=== PATIENT | female | born 1960 | race African-American/Black ===

== ENCOUNTER 2018-04-22 11:13 | Inpatient (IN) | payer OTHER ==
[~2018-04-22] VITALS: Ht 157.5 cm; Wt 104.8 kg
[2018-04-22] VITALS (7 sets, daily range): BP systolic 127–154; BP diastolic 68–87
[~2018-04-22 11:13] MED LIST: ACYCLOVIR800 MG ORAL; AVELIDE PERCUT; BENADRYL25 MG ORAL; CEPHALEXIN500 MG ORAL; GABAPENTIN300 MG ORAL; LEVOTHYROXINE25 MCG ORAL; PREDNISONE20 MG ORAL; RANITIDINE HCL150 MG ORAL; STELARA45 MG/0.1 SQ; TRUVADA 200 MG1 EAC1 ORAL; VIGAMOX1 DROP LEFT EYE
--- NOTE | 2018-04-22 11:35 | NUR ---
ED Nurse Note: Pt walked into ED c/o dizziness for couple of days. Pt reports she went to doctors office because she had blood in urine but it went away, doctor rec to follow up with urologist. denies taking any medication. PT AA&Ox4, gcs=15, skin warm and dry, resp even and unlabored, -n/v/d, ambulates w/ weak gait, pt placed on cardiac tech, KRISTOPHER DOMINGUEZ MD at the bedside, will continue to monitor.
[2018-04-22] MEDS ORDERED: Isovue-300 100ml vial INJ PRN (11:45)
[2018-04-22 12:10] LABS: HEMATOCRIT 27.1 % (37.0-47.0); HEMOGLOBIN 8.9 G/DL (12.0-16.0); MEAN CORPUSCULAR VOLUME 82 FL (80-99); PLATELET COUNT 11 K/UL (150-450); RED BLOOD COUNT 3.32 M/UL (4.20-5.40); RED CELL DISTRIBUTION WIDTH 21.1 % (11.6-14.8); WHITE BLOOD COUNT 7.8 K/UL (4.8-10.8)
[2018-04-22 12:14] LABS: APPEARANCE,URINE CLOUDY; BILIRUBIN, URINE 3+ (NEGATIVE); GLUCOSE, URINE (UA) NEGATIVE (NEGATIVE); KETONES,URINE NEGATIVE (NEGATIVE); LEUKOCYTE ESTERASE ,URINE 2+ (NEGATIVE); PH,URINE 7 (4.5-8.0); PROTEIN,URINE 3+ (NEGATIVE); UROBILINOGEN,URINE 12 MG/DL (0.0-1.0)
[2018-04-22 12:17] LABS: COLOR,URINE AMBER; NITRITE,URINE NEGATIVE (NEGATIVE)
--- NOTE | 2018-04-22 12:40 | Diagnostic Imaging Report ---
EXAM: CT Head Without Intravenous Contrast CLINICAL HISTORY: PAIN TECHNIQUE: Axial computed tomography images of the head/brain without intravenous contrast. CTDI is 70.38 mGy and DLP is 1358 mGy-cm. One or more of the following dose reduction techniques were used: automated exposure control, adjustment of the mA and/or kV according to patient size, use of iterative reconstruction technique. COMPARISON: No relevant prior studies available. FINDINGS: Brain: No hemorrhage. No edema. Ventricles: No ventriculomegaly. Bones/joints: No acute fracture. Soft tissues: Unremarkable. Sinuses: No acute sinusitis. Mastoid air cells: No mastoid effusion. IMPRESSION: No acute intracranial process.
[2018-04-22 12:48] LABS: ANION GAP 6 mmol/L (5-15); BLOOD UREA NITROGEN 17 mg/dL (7-18); CALCIUM 8.8 MG/DL (8.5-10.1); CARBON DIOXIDE 27 MMOL/L (21-32); CHLORIDE 103 MMOL/L (98-107); CREATININE 0.9 MG/DL (0.55-1.30); POTASSIUM 3.3 MMOL/L (3.5-5.1); SODIUM 136 MMOL/L (136-145)
[2018-04-22 12:56] LABS: ALANINE AMINOTRANSFERASE 56 U/L (12-78); ALBUMIN 3.5 G/DL (3.4-5.0); ALBUMIN/GLOBULIN RATIO 0.7 (1.0-2.7); ALKALINE PHOSPHATASE 84 U/L (46-116); ASPARTATE AMINO TRANSFERASE 68 U/L (15-37); BILIRUBIN,TOTAL 1.7 MG/DL (0.2-1.0)
[2018-04-22 13:03] LABS: BILIRUBIN,DIRECT 0.3 MG/DL (0.0-0.3)
--- NOTE | 2018-04-22 13:31 | Diagnostic Imaging Report ---
EXAM: CT Abdomen and Pelvis With Intravenous Contrast CLINICAL HISTORY: ABD PAIN TECHNIQUE: Axial computed tomography images of the abdomen and pelvis with intravenous contrast. CTDI is 19.28 mGy and DLP is 1045 mGy-cm. One or more of the following dose reduction techniques were used: automated exposure control, adjustment of the mA and/or kV according to patient size, use of iterative reconstruction technique. COMPARISON: No relevant prior studies available. FINDINGS: Lung bases: Unremarkable. Heart: Cardiomegaly. ABDOMEN: Liver: Unremarkable. Gallbladder and bile ducts: No calcified stones. No ductal dilation. Pancreas: Unremarkable. Spleen: Unremarkable. Adrenals: Unremarkable. Kidneys and ureters: Bilateral nephrolithiasis. Stomach and bowel: No alis mural thickening. Nonobstructive bowel gas pattern. PELVIS: Appendix: Distended appendix measuring about 1 cm. No surrounding inflammatory changes. Bladder: Unremarkable. Reproductive: Hysterectomy. ABDOMEN and PELVIS: Intraperitoneal space: Unremarkable. Bones/joints: Avascular necrosis of the hips. Soft tissues: Unremarkable. Vasculature: Unremarkable. No abdominal aortic aneurysm. Lymph nodes: Mesenteric nodes. IMPRESSION: 1. Distended appendix measuring about 1 cm. No surrounding inflammatory changes. 2. Bilateral nephrolithiasis. 3. Avascular necrosis of the hips.
[2018-04-22] MEDS ORDERED: AVAPRO75 MG ORAL (13:56)
[2018-04-22] MEDS ORDERED: LEVOTHYROXINE125 MCG ORAL (13:56)
[2018-04-22] MEDS ORDERED: Solu-MEDROL 125mg Inj IVP ONE (14:15)
--- NOTE | 2018-04-22 14:41 | Emergency Room Report ---
History of Present Illness General Chief Complaint: Dizziness Source: Patient Present Illness HPI Patient is a 57-year-old female presented after increased the hematuria and dizziness. She reports having some headache. She reports having the prior diagnosis of HIV. She states that she had a previously been noted to have a high viral load. The patient reports some near-syncope as well as increased dizziness with head movements. She denies any fever. She had reports having some had generalized abdominal pain. She denies any focal pain Allergies: Coded Allergies: No Known Allergies (Unverified , 04/18/13) Patient History Past Medical History: see triage record Now: No Reviewed Nursing Documentation: PMH: Agreed; PSxH: Agreed Nursing Documentation-PMH Past Medical History: No History, Except For Hx Hypertension: Yes Review of Systems All Other Systems: negative except mentioned in HPI Physical Exam Vital Signs Date Time Temp Pulse Resp B/P (MAP) Pulse Ox O2 Delivery O2 Flow Rate FiO2 04/22/18 11:29 97.2 74 20 150/77 100 Room Air Sp02 EP Interpretation: reviewed, normal General Appearance: normal inspection, well appearing, no apparent distress, alert, GCS 15 Head: atraumatic ENT: normal ENT inspection, hearing grossly normal, normal voice Neck: normal inspection, full range of motion, supple, no bony tend Respiratory: normal inspection, lungs clear, normal breath sounds, no respiratory distress, no retraction, no wheezing Cardiovascular #1: regular rate, rhythm, no edema Gastrointestinal: normal inspection, normal bowel sounds, non tender, soft, no guarding, no hernia Genitourinary: no CVA tenderness Musculoskeletal: normal inspection, back normal, normal range of motion Neurologic: normal inspection, alert, oriented x3, responsive, deck cadet III-XII nml as tested, speech normal Psychiatric: normal inspection, judgement/insight normal, mood/affect normal Skin: normal inspection, normal color, no rash Medical Decision Making Diagnostic Impression: Primary Impression: Thrombocytopenia Additional Impressions: HIV (human immunodeficiency virus infection) Anemia Bilateral nephrolithiasis ER Course The patient presented for dizziness and hematuria. Differential diagnosis included was not limited to coagulopathy, anemia, vertigo, intracranial hemorrhage among others.Because of complexity of patient's case laboratory testing and imaging studies were ordered. The laboratory testing was notable for markedly thrombocytopenia the with platelet count of 11. The patient was additionally noted to be anemic.CT head read by radiology showed no evidence of acute intracranial hemorrhage. The CT abdomen pelvis read by radiology showed bilateral nephrolithiasis and 1 cm appendix without inflammation. The patient was consented for blood transfusion.Dr. Geo Almeida was contacted for inpatient management. Labs Test 04/22/18 11:42 04/22/18 11:52 Urine Color Fiona Urine Appearance Cloudy Urine pH 7 (4.5-8.0) Urine Specific [place] 1.010 (1.005-1.035) Urine Protein 3+ (NEGATIVE) Urine Glucose (UA) Negative (NEGATIVE) Urine Ketones Negative (NEGATIVE) Urine Blood 5+ (NEGATIVE) Urine Nitrite Negative (NEGATIVE) Urine Bilirubin 3+ (NEGATIVE) Urine Ictotest Positive (NEGATIVE) Urine Urobilinogen 12 MG/DL (0.0-1.0) Urine Leukocyte Esterase 2+ (NEGATIVE) Urine RBC Tntc /HPF (0 - 2) Urine WBC 5-10 /HPF (0 - 2) Urine Squamous Epithelial Cells Few /LPF (NONE/OCC) Urine Bacteria Few /HPF (NONE) White Blood Count 7.8 K/UL (4.8-10.8) Red Blood Count 3.32 M/UL (4.20-5.40) Hemoglobin 8.9 G/DL (12.0-16.0) Hematocrit 27.1 % (37.0-47.0) Mean Corpuscular Volume 82 FL (80-99) Mean Corpuscular Hemoglobin 26.9 PG (27.0-31.0) Mean Corpuscular Hemoglobin Concent 32.9 G/DL (32.0-36.0) Red Cell Distribution Width 21.1 % (11.6-14.8) Platelet Count 11 K/UL (150-450) Mean Platelet Volume 16.5 FL (6.5-10.1) Neutrophils (%) (Auto) % (45.0-75.0) Lymphocytes (%) (Auto) % (20.0-45.0) Monocytes (%) (Auto) % (1.0-10.0) Eosinophils (%) (Auto) % (0.0-3.0) Basophils (%) (Auto) % (0.0-2.0) Differential Total Cells Counted 100 Neutrophils % (Manual) 49 % (45-75) Lymphocytes % (Manual) 40 % (20-45) Monocytes % (Manual) 11 % (1-10) Eosinophils % (Manual) 0 % (0-3) Basophils % (Manual) 0 % (0-2) Band Neutrophils 0 % (0-8) Platelet Estimate Decreased Platelet Morphology Giant Platelets 1+ Polychromasia 1+ Hypochromasia 1+ Anisocytosis 3+ Prothrombin Time 10.4 SEC (9.30-11.50) Prothromb Time International Ratio 1.0 (0.9-1.1) Activated Partial Thromboplast Time 35 SEC (23-33) Sodium Level 136 MMOL/L (136-145) Potassium Level 3.3 MMOL/L (3.5-5.1) Chloride Level 103 MMOL/L (98-107) Carbon Dioxide Level 27 MMOL/L (21-32) Anion Gap 6 mmol/L (5-15) Blood Urea Nitrogen 17 mg/dL (7-18) Creatinine 0.9 MG/DL (0.55-1.30) Estimat Glomerular Filtration Rate > 60 mL/min (>60) Glucose Level 131 MG/DL (74-106) Calcium Level 8.8 MG/DL (8.5-10.1) Total Bilirubin 1.7 MG/DL (0.2-1.0) Direct Bilirubin 0.3 MG/DL (0.0-0.3) Aspartate Amino Transf (AST/SGOT) 68 U/L (15-37) Alanine Aminotransferase (ALT/SGPT) 56 U/L (12-78) Alkaline Phosphatase 84 U/L (46-116) Troponin I 0.078 ng/mL (0.000-0.056) Total Protein 8.2 G/DL (6.4-8.2) Albumin 3.5 G/DL (3.4-5.0) Globulin 4.7 g/dL Albumin/Globulin Ratio 0.7 (1.0-2.7) Lipase 279 U/L (73-393) Last Vital Signs Date Time Temp Pulse Resp B/P (MAP) Pulse Ox O2 Delivery O2 Flow Rate FiO2 16/18 14:16 97.8 74 18 143/87 100 Room Air Status: unchanged Disposition: ADMITTED INPATIENT Condition: Serious Referrals: NON PHYSICIAN (PCP) Jose Curtis MD Apr 22, 2018 14:41
--- NOTE | 2018-04-22 17:00 | NUR ---
NURSE NOTES: Received patient from ER. Denies any pain and N/V at this time. All belongings checking with the patient. Patient in stable condition. Will continue to monitor.
--- NOTE | 2018-04-22 18:20 | NUR ---
NURSE NOTES: Started 1 unit of PLT and V/S is stable. Will continue to monitor.
--- NOTE | 2018-04-22 19:53 | NUR ---
HAND-OFF: Report given to OTF Shen.
--- NOTE | 2018-04-22 20:00 | NUR ---
NURSE NOTES: Patient received. Patient in bed awake, no complaints of pain. 1 unit of platelet infused, pt stated she feels better. No skin issues. Aware to call for help as needed. Call light within reach. Will continue to monitor.
[2018-04-22] MEDS ORDERED: Zolpidem 5mg tab ORAL PRN (22:15)
[2018-04-23] VITALS: BP 119/58
[2018-04-23] MEDS ORDERED: Cephalexin 500mg cap ORAL SCH
[2018-04-23 04:00] VITALS: BP 110/74
--- NOTE | 2018-04-23 07:01 | NUR ---
HAND-OFF: Report given to OTF Baker.
--- NOTE | 2018-04-23 07:15 | NUR ---
NURSE NOTES: Received report from OTF Shen. Patient asleep and bed in lowest position. Call light within reach and will continue to monitor.
[2018-04-23 08:00] VITALS: BP 134/71
[2018-04-23] MEDS ORDERED: Vigamox Opth Soln 3ml LEFT EYE SCH (09:00)
[2018-04-23 09:06] LABS: ANION GAP 12 mmol/L (5-15); BLOOD UREA NITROGEN 20 mg/dL (7-18); CALCIUM 8.7 MG/DL (8.5-10.1); CARBON DIOXIDE 25 MMOL/L (21-32); CHLORIDE 106 MMOL/L (98-107); CREATININE 0.9 MG/DL (0.55-1.30); POTASSIUM 3.5 MMOL/L (3.5-5.1); SODIUM 142 MMOL/L (136-145)
[2018-04-23 09:10] LABS: HEMATOCRIT 24.2 % (37.0-47.0); HEMOGLOBIN 8.1 G/DL (12.0-16.0); MEAN CORPUSCULAR VOLUME 83 FL (80-99); PLATELET COUNT 14 K/UL (150-450); RED BLOOD COUNT 2.93 M/UL (4.20-5.40); RED CELL DISTRIBUTION WIDTH 21.9 % (11.6-14.8); WHITE BLOOD COUNT 11.1 K/UL (4.8-10.8)
--- NOTE | 2018-04-23 10:31 | History & Physical ---
History and Physical History & Physicial 57-year-old female presented with hematuria and dizziness. She reports having some headaches as well. She reports having the prior diagnosis of HIV, which has been controlled. The patient reports some near-syncope as well as increased dizziness. She had reports having some had generalized abdominal pain but no diarrhea or hematochezia. She denies any focal pain Allergies: No Known Allergies (Unverified , 04/18/13) Past Medical History: HIV, hypertension Reviewed of Systems: as above Physical WDWN NAD clear breath sounds bilaterally without rhonchi or wheeze [id number] without MRG NABS nontender no HSM no CCE nonfocal Labs Test 04/22/18 11:42 04/22/18 11:52 04/23/18 06:14 Urine Color Fiona Urine Appearance Cloudy Urine pH 7 (4.5-8.0) Urine Specific [place] 1.010 (1.005-1.035) Urine Protein 3+ (NEGATIVE) Urine Glucose (UA) Negative (NEGATIVE) Urine Ketones Negative (NEGATIVE) Urine Blood 5+ (NEGATIVE) Urine Nitrite Negative (NEGATIVE) Urine Bilirubin 3+ (NEGATIVE) Urine Ictotest Positive (NEGATIVE) Urine Urobilinogen 12 MG/DL (0.0-1.0) Urine Leukocyte Esterase 2+ (NEGATIVE) Urine RBC Tntc /HPF (0 - 2) Urine WBC 5-10 /HPF (0 - 2) Urine Squamous Epithelial Cells Few /LPF (NONE/OCC) Urine Bacteria Few /HPF (NONE) White Blood Count 7.8 K/UL (4.8-10.8) 11.1 K/UL (4.8-10.8) Red Blood Count 3.32 M/UL (4.20-5.40) 2.93 M/UL (4.20-5.40) Hemoglobin 8.9 G/DL (12.0-16.0) 8.1 G/DL (12.0-16.0) Hematocrit 27.1 % (37.0-47.0) 24.2 % (37.0-47.0) Mean Corpuscular Volume 82 FL (80-99) 83 FL (80-99) Mean Corpuscular Hemoglobin 26.9 PG (27.0-31.0) 27.5 PG (27.0-31.0) Mean Corpuscular Hemoglobin Concent 32.9 G/DL (32.0-36.0) 33.3 G/DL (32.0-36.0) Red Cell Distribution Width 21.1 % (11.6-14.8) 21.9 % (11.6-14.8) Platelet Count 11 K/UL (150-450) 14 K/UL (150-450) Mean Platelet Volume 16.5 FL (6.5-10.1) 16.4 FL (6.5-10.1) Neutrophils (%) (Auto) % (45.0-75.0) % (45.0-75.0) Lymphocytes (%) (Auto) % (20.0-45.0) % (20.0-45.0) Monocytes (%) (Auto) % (1.0-10.0) % (1.0-10.0) Eosinophils (%) (Auto) % (0.0-3.0) % (0.0-3.0) Basophils (%) (Auto) % (0.0-2.0) % (0.0-2.0) Differential Total Cells Counted 100 100 Neutrophils % (Manual) 49 % (45-75) 62 % (45-75) Lymphocytes % (Manual) 40 % (20-45) 27 % (20-45) Monocytes % (Manual) 11 % (1-10) 10 % (1-10) Eosinophils % (Manual) 0 % (0-3) 1 % (0-3) Basophils % (Manual) 0 % (0-2) 0 % (0-2) Band Neutrophils 0 % (0-8) 0 % (0-8) Platelet Estimate Decreased Decreased Platelet Morphology Normal Giant Platelets 1+ Polychromasia 1+ 1+ Hypochromasia 1+ Anisocytosis 3+ 2+ Prothrombin Time 10.4 SEC (9.30-11.50) Prothromb Time International Ratio 1.0 (0.9-1.1) Activated Partial Thromboplast Time 35 SEC (23-33) Sodium Level 136 MMOL/L (136-145) 142 MMOL/L (136-145) Potassium Level 3.3 MMOL/L (3.5-5.1) 3.5 MMOL/L (3.5-5.1) Chloride Level 103 MMOL/L (98-107) 106 MMOL/L (98-107) Carbon Dioxide Level 27 MMOL/L (21-32) 25 MMOL/L (21-32) Anion Gap 6 mmol/L (5-15) 12 mmol/L (5-15) Blood Urea Nitrogen 17 mg/dL (7-18) 20 mg/dL (7-18) Creatinine 0.9 MG/DL (0.55-1.30) 0.9 MG/DL (0.55-1.30) Estimat Glomerular Filtration Rate > 60 mL/min (>60) > 60 mL/min (>60) Glucose Level 131 MG/DL (74-106) 129 MG/DL (74-106) Calcium Level 8.8 MG/DL (8.5-10.1) 8.7 MG/DL (8.5-10.1) Total Bilirubin 1.7 MG/DL (0.2-1.0) Direct Bilirubin 0.3 MG/DL (0.0-0.3) Aspartate Amino Transf (AST/SGOT) 68 U/L (15-37) Alanine Aminotransferase (ALT/SGPT) 56 U/L (12-78) Alkaline Phosphatase 84 U/L (46-116) Troponin I 0.078 ng/mL (0.000-0.056) Total Protein 8.2 G/DL (6.4-8.2) Albumin 3.5 G/DL (3.4-5.0) Globulin 4.7 g/dL Albumin/Globulin Ratio 0.7 (1.0-2.7) Lipase 279 U/L (73-393) Nucleated Red Blood Cells 2 /100 WBC Schistocytes 2+ IMPRESSION HIV Thrombocytopenia itchyness PLAN care noted heme evaluation follow up labs review med profile and discuss impression, plan, and exam edited and reviewed in detail care discussed with Geo Manriquez MD Apr 23, 2018 10:31
--- NOTE | 2018-04-23 10:31 | General Progress Note ---
Subjective Allergies: Coded Allergies: No Known Allergies (Unverified , 04/18/13) Objective Last 24 Hour Vital Signs Date Time Temp Pulse Resp B/P (MAP) Pulse Ox O2 Delivery O2 Flow Rate FiO2 04/23/18 08:00 98.6 68 20 134/71 (92) 97 04/23/18 04:00 98.3 80 18 110/74 (86) 99 04/23/18 00:00 98.4 79 18 119/58 (78) 96 04/22/18 21:00 Room Air 04/22/18 20:00 98.5 87 18 127/68 (87) 100 04/22/18 18:35 98.9 78 18 139/74 (95) 100 04/22/18 17:50 98.9 78 18 140/74 (96) 100 04/22/18 17:05 Room Air 04/22/18 17:00 97.7 81 18 144/77 (99) 100 04/22/18 16:34 97.8 76 20 138/85 100 Room Air 04/22/18 14:16 97.8 74 18 143/87 100 Room Air 04/22/18 12:35 97.8 70 16 154/77 100 Room Air 04/22/18 11:35 97.2 68 20 150/77 100 Room Air 04/22/18 11:35 74 20 Room Air 04/22/18 11:29 97.2 74 20 150/77 100 Room Air Intake and Output 04/22/18 04/23/18 19:00 07:00 Intake Total 300 ml Balance 300 ml Intake Oral 0 ml Blood Product 300 ml # Voids 1 1 Laboratory Tests 04/22/18 11:42: Urine Color Fiona, Urine Appearance Cloudy, Urine pH 7, Urine Specific [place] 1.010, Urine Protein 3+H, Urine Glucose (UA) Negative, Urine Ketones Negative, Urine Blood 5+H, Urine Nitrite Negative, Urine Bilirubin 3+H, Urine Ictotest Positive, Urine Urobilinogen 12H, Urine Leukocyte Esterase 2+H, Urine RBC TntcH , Urine WBC 5-10H, Urine Squamous Epithelial Cells Few, Urine Bacteria Few 04/22/18 11:52: White Blood Count 7.8, Red Blood Count 3.32L, Hemoglobin 8.9L, Hematocrit 27.1L , Mean Corpuscular Volume 82, Mean Corpuscular Hemoglobin 26.9L, Mean Corpuscular Hemoglobin Concent 32.9, Red Cell Distribution Width 21.1H, Platelet Count 11L, Mean Platelet Volume 16.5H, Neutrophils (%) (Auto) , Lymphocytes (%) (Auto) , Monocytes (%) (Auto) , Eosinophils (%) (Auto) , Basophils (%) (Auto) , Differential Total Cells Counted 100, Neutrophils % ( Manual) 49, Lymphocytes % (Manual) 40, Monocytes % (Manual) 11H, Eosinophils % ( Manual) 0, Basophils % (Manual) 0, Band Neutrophils 0, Platelet Estimate DecreasedL, Platelet Morphology , Giant Platelets 1+, Polychromasia 1+, Hypochromasia 1+, Anisocytosis 3+, Prothrombin Time 10.4, Prothromb Time International Ratio 1.0, Activated Partial Thromboplast Time 35H, Sodium Level 136, Potassium Level 3.3L, Chloride Level 103, Carbon Dioxide Level 27, Anion Gap 6, Blood Urea Nitrogen 17, Creatinine 0.9, Estimat Glomerular Filtration Rate > 60, Glucose Level 131H, Calcium Level 8.8, Total Bilirubin 1.7H, Direct Bilirubin 0.3, Aspartate Amino Transf (AST/SGOT) 68H, Alanine Aminotransferase ( ALT/SGPT) 56, Alkaline Phosphatase 84, Troponin I 0.078H, Total Protein 8.2, Albumin 3.5, Globulin 4.7, Albumin/Globulin Ratio 0.7L, Lipase 279 04/23/18 06:14: White Blood Count 11.1H, Red Blood Count 2.93L, Hemoglobin 8.1L, Hematocrit 24.2L, Mean Corpuscular Volume 83, Mean Corpuscular Hemoglobin 27.5, Mean Corpuscular Hemoglobin Concent 33.3, Red Cell Distribution Width 21.9H, Platelet Count 14L, Mean Platelet Volume 16.4H, Neutrophils (%) (Auto) , Lymphocytes (%) (Auto) , Monocytes (%) (Auto) , Eosinophils (%) (Auto) , Basophils (%) (Auto) , Differential Total Cells Counted 100, Neutrophils % ( Manual) 62, Lymphocytes % (Manual) 27, Monocytes % (Manual) 10, Eosinophils % ( Manual) 1, Basophils % (Manual) 0, Band Neutrophils 0, Platelet Estimate DecreasedL, Platelet Morphology Normal, Polychromasia 1+, Anisocytosis 2+, Sodium Level 142, Potassium Level 3.5, Chloride Level 106, Carbon Dioxide Level 25, Anion Gap 12, Blood Urea Nitrogen 20H, Creatinine 0.9, Estimat Glomerular Filtration Rate > 60, Glucose Level 129H, Calcium Level 8.7, Nucleated Red Blood Cells 2, Schistocytes 2+ Height (Feet): 5 Height (Inches): 2.00 Weight (Pounds): 230 Geo Almeida MD Apr 23, 2018 10:31
--- NOTE | 2018-04-23 10:54 | NUR ---
NURSE NOTES: Notified to Dr. Almeida regarding Hgb 8.1 and plt 14. MD ordered CBC tomorrow morning. Noted and carried out.
[2018-04-23 12:00] VITALS: BP 127/61
--- NOTE | 2018-04-23 15:04 | NUR ---
NURSE NOTES: Patient is not taking Keflex, Zovirax, Avelide, Truvada, Vigamox anymore per patient. Notified to Dr. Almeida and ordered d/c meds. Noted and carried out.
[2018-04-23 16:00] VITALS: BP 132/62
--- NOTE | 2018-04-23 16:20 | NUR ---
CASE MANAGEMENT: REVIEW 57/F BIBA FROM HOME CC: DIZZINESS SI: ANEMIA . THROMBOCYTOPENIC . BILATERAL NEPHROLITHIASIS T 97.2 HR 74 RR 20 BP 150/77 SAT 100% ROOM AIR H/H 8.9/27.1 K 3.3 TROPONIN I 0.078 IS: SOLU MEDROL IV X1 KEFLEX PO X1 INTERQUAL CRITERIA MET: PATIENT ADMITTED TO MED/SURG UNIT 04/22/2018 DCP: PATIENT IS FROM HOME
--- NOTE | 2018-04-23 18:29 | Consultation ---
History of Present Illness General Chief Complaint: Dizziness Present Illness Allergies: Coded Allergies: No Known Allergies (Unverified , 04/18/13) Medication History Scheduled Acyclovir* (Zovirax*), 800 MG ORAL FIVE TIMES A DAY Cephalexin* (Keflex*), 500 MG ORAL EVERY 6 HOURS Emtricitabine/Tenofovir 200-300MG* (Truvada 200-300MG*), 1 TAB ORAL DAILY, ( Reported) Gabapentin* (Gabapentin*), 300 MG ORAL THREE TIMES A DAY Irbesartan* (Avapro*), Unknown Dose ORAL DAILY, (Reported) Levothyroxine Sodium* (Levothyroxine Sodium*), Unknown Dose ORAL DAILY, ( Reported) Levothyroxine Sodium* (Levothyroxine Sodium*), 112 MCG ORAL DAILY, (Reported) Moxifloxacin HCl (Vigamox), 1 DROP LEFT EYE THREE TIMES A DAY Prednisone* (Prednisone*), 20 MG ORAL BID Ranitidine Hcl* (Zantac*), 150 MG ORAL TWICE A DAY [avelide], 1 TAB PERCUT DAILY, (Reported) Scheduled PRN Diphenhydramine Hcl* (Benadryl*), 25 MG ORAL Q6H PRN for Itching Miscellaneous Medications Ustekinumab (Stelara), Unknown Dose SQ, (Reported) Patient History Healthcare decision maker Resuscitation status Full Code Advanced Directive on File Physical Exam Last 24 Hour Vital Signs Date Time Temp Pulse Resp B/P (MAP) Pulse Ox O2 Delivery O2 Flow Rate FiO2 04/23/18 16:00 98.1 77 20 132/62 (85) 100 04/23/18 12:00 97.4 74 20 127/61 (83) 98 04/23/18 09:00 Room Air 04/23/18 08:00 98.6 68 20 134/71 (92) 97 04/23/18 04:00 98.3 80 18 110/74 (86) 99 04/23/18 00:00 98.4 79 18 119/58 (78) 96 04/22/18 21:00 Room Air 04/22/18 20:00 98.5 87 18 127/68 (87) 100 04/22/18 18:35 98.9 78 18 139/74 (95) 100 Intake and Output 04/22/18 04/23/18 18:59 06:59 Intake Total 300 ml Balance 300 ml Intake Oral 0 ml Blood Product 300 ml # Voids 1 1 Laboratory Tests Test 04/23/18 06:14 White Blood Count 11.1 K/UL (4.8-10.8) H Red Blood Count 2.93 M/UL (4.20-5.40) L Hemoglobin 8.1 G/DL (12.0-16.0) L Hematocrit 24.2 % (37.0-47.0) L Mean Corpuscular Volume 83 FL (80-99) Mean Corpuscular Hemoglobin 27.5 PG (27.0-31.0) Mean Corpuscular Hemoglobin Concent 33.3 G/DL (32.0-36.0) Red Cell Distribution Width 21.9 % (11.6-14.8) H Platelet Count 14 K/UL (150-450) L Mean Platelet Volume 16.4 FL (6.5-10.1) H Neutrophils (%) (Auto) % (45.0-75.0) Lymphocytes (%) (Auto) % (20.0-45.0) Monocytes (%) (Auto) % (1.0-10.0) Eosinophils (%) (Auto) % (0.0-3.0) Basophils (%) (Auto) % (0.0-2.0) Differential Total Cells Counted 100 Neutrophils % (Manual) 62 % (45-75) Lymphocytes % (Manual) 27 % (20-45) Monocytes % (Manual) 10 % (1-10) Eosinophils % (Manual) 1 % (0-3) Basophils % (Manual) 0 % (0-2) Band Neutrophils 0 % (0-8) Nucleated Red Blood Cells 2 /100 WBC Platelet Estimate Decreased L Platelet Morphology Normal Polychromasia 1+ Anisocytosis 2+ Schistocytes 2+ Sodium Level 142 MMOL/L (136-145) Potassium Level 3.5 MMOL/L (3.5-5.1) Chloride Level 106 MMOL/L (98-107) Carbon Dioxide Level 25 MMOL/L (21-32) Anion Gap 12 mmol/L (5-15) Blood Urea Nitrogen 20 mg/dL (7-18) H Creatinine 0.9 MG/DL (0.55-1.30) Estimat Glomerular Filtration Rate > 60 mL/min (>60) Glucose Level 129 MG/DL (74-106) H Calcium Level 8.7 MG/DL (8.5-10.1) Height (Feet): 5 Height (Inches): 2.00 Weight (Pounds): 230 Medications Current Medications Medications (Trade) Dose Ordered Sig/Ellen Route PRN Reason Start Time Stop Time Status Last Admin Dose Admin Diphenhydramine HCl (Benadryl) 25 mg Q6H PRN ORAL Itching 04/22/18 19:15 05/22/18 19:14 04/23/18 06:24 Famotidine (Pepcid) 20 mg BID ORAL 04/23/18 09:00 05/23/18 08:59 04/23/18 08:59 Gabapentin (Neurontin) 300 mg THREE TIMES A DAY ORAL 04/23/18 09:00 05/23/18 08:59 Iopamidol (Isovue-300 100ml) 100 ml NOW PRN INJ Radiology Procedure 04/22/18 11:45 Irbesartan (Avapro) 75 mg DAILY ORAL 04/23/18 09:00 05/23/18 08:59 Levothyroxine Sodium (Synthroid) 112 mcg ACBREAKFAST ORAL 04/23/18 06:30 05/23/18 06:29 04/23/18 05:57 Prednisone (predniSONE) 20 mg BID ORAL 04/23/18 09:00 05/23/18 08:59 04/23/18 08:59 Zolpidem Tartrate (Ambien) 5 mg HSPRN PRN ORAL Insomnia 04/22/18 22:15 04/29/18 22:14 04/22/18 22:23 Assessment/Plan Assessment/Plan Hematology Consultation DOS: 04/23/18 [place]: Yordan Almeida RFC: Anemia and thrombocytopenia HPI 57-year-old female presented after increased the hematuria and dizziness. She reports having some headache. She reports having the prior diagnosis of HIV. She states that she had a previously been noted to have a high viral load. The patient reports some near-syncope as well as increased dizziness with head movements. She denies any fever. She had reports having some had generalized abdominal pain. She denies any focal pain. Noted to have anemia and low platelets and heme was consulted. Allergies: No Known Allergies (Unverified , 04/18/13) Past Medical History: see triage record Now: No Reviewed Nursing Documentation: PMH: Agreed; PSxH: Agreed Past Medical History: No History, Except For Hx Hypertension: Yes Review of Systems: negative except mentioned in HPI PE: Last 24 Hour Vital Signs Date Time Temp Pulse Resp B/P (MAP) Pulse Ox O2 Delivery O2 Flow Rate FiO2 04/23/18 16:00 98.1 77 20 132/62 (85) 100 04/23/18 12:00 97.4 74 20 127/61 (83) 98 04/23/18 09:00 Room Air 04/23/18 08:00 98.6 68 20 134/71 (92) 97 04/23/18 04:00 98.3 80 18 110/74 (86) 99 04/23/18 00:00 98.4 79 18 119/58 (78) 96 04/22/18 21:00 Room Air 04/22/18 20:00 98.5 87 18 127/68 (87) 100 04/22/18 18:35 98.9 78 18 139/74 (95) 100 General Appearance: normal inspection, well appearing, nad Head: atraumatic ENT: normal ENT inspection, hearing grossly normal Neck: normal inspection, full range of motion, supple Respiratory: normal inspection, lungs clear, normal breath sounds Cardiovascular: regular rate, rhythm Gastrointestinal: normal inspection, normal bowel sounds Genitourinary: no CVA tenderness Musculoskeletal: normal inspection, back normal Neurologic: normal inspection, alert, oriented x3, 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 Psychiatric: normal inspection Skin: normal inspection, normal color Laboratory Tests Test 04/23/18 06:14 White Blood Count 11.1 K/UL (4.8-10.8) H Red Blood Count 2.93 M/UL (4.20-5.40) L Hemoglobin 8.1 G/DL (12.0-16.0) L Hematocrit 24.2 % (37.0-47.0) L Mean Corpuscular Volume 83 FL (80-99) Mean Corpuscular Hemoglobin 27.5 PG (27.0-31.0) Mean Corpuscular Hemoglobin Concent 33.3 G/DL (32.0-36.0) Red Cell Distribution Width 21.9 % (11.6-14.8) H Platelet Count 14 K/UL (150-450) L Mean Platelet Volume 16.4 FL (6.5-10.1) H Neutrophils (%) (Auto) % (45.0-75.0) Lymphocytes (%) (Auto) % (20.0-45.0) Monocytes (%) (Auto) % (1.0-10.0) Eosinophils (%) (Auto) % (0.0-3.0) Basophils (%) (Auto) % (0.0-2.0) Differential Total Cells Counted 100 Neutrophils % (Manual) 62 % (45-75) Lymphocytes % (Manual) 27 % (20-45) Monocytes % (Manual) 10 % (1-10) Eosinophils % (Manual) 1 % (0-3) Basophils % (Manual) 0 % (0-2) Band Neutrophils 0 % (0-8) Nucleated Red Blood Cells 2 /100 WBC Platelet Estimate Decreased L Platelet Morphology Normal Polychromasia 1+ Anisocytosis 2+ Schistocytes 2+ Sodium Level 142 MMOL/L (136-145) Potassium Level 3.5 MMOL/L (3.5-5.1) Chloride Level 106 MMOL/L (98-107) Carbon Dioxide Level 25 MMOL/L (21-32) Anion Gap 12 mmol/L (5-15) Blood Urea Nitrogen 20 mg/dL (7-18) H Creatinine 0.9 MG/DL (0.55-1.30) Estimat Glomerular Filtration Rate > 60 mL/min (>60) Glucose Level 129 MG/DL (74-106) H Calcium Level 8.7 MG/DL (8.5-10.1) Current Medications Medications (Trade) Dose Ordered Sig/Ellen Route PRN Reason Start Time Stop Time Status Last Admin Dose Admin Diphenhydramine HCl (Benadryl) 25 mg Q6H PRN ORAL Itching 04/22/18 19:15 05/22/18 19:14 04/23/18 06:24 Famotidine (Pepcid) 20 mg BID ORAL 04/23/18 09:00 05/23/18 08:59 04/23/18 08:59 Gabapentin (Neurontin) 300 mg THREE TIMES A DAY ORAL 04/23/18 09:00 05/23/18 08:59 Iopamidol (Isovue-300 100ml) 100 ml NOW PRN INJ Radiology Procedure 04/22/18 11:45 Irbesartan (Avapro) 75 mg DAILY ORAL 04/23/18 09:00 05/23/18 08:59 Levothyroxine Sodium (Synthroid) 112 mcg ACBREAKFAST ORAL 04/23/18 06:30 05/23/18 06:29 04/23/18 05:57 Prednisone (predniSONE) 20 mg BID ORAL 04/23/18 09:00 05/23/18 08:59 04/23/18 08:59 Zolpidem Tartrate (Ambien) 5 mg HSPRN PRN ORAL Insomnia 04/22/18 22:15 04/29/18 22:14 04/22/18 22:23 Assessment and Recs: # Severe thrombocytopenia - is most likely related to HIV poorly controlled, but will need to r/o malignancy as well as well as infection --> r/o underyling infection, imaging has been ordered --> transfuse as needed to keep plt >10k --> trend plt count 11-->14k # Anemia of chronic disease --> consider w/u as required --> rule out hemolysis # HIV (human immunodeficiency virus infection) poorly controlled --> okay to continue hiv meds # Bilateral nephrolithiasis --> appreciate renal recs # Dizziness and hematuria r/o kidney stones. --> ivf has been given # Hypomagnesemia -- replete with mag Greatly appreciate consultation! Antony Julian MD Apr 23, 2018 18:29
--- NOTE | 2018-04-23 19:46 | NUR ---
HAND-OFF: Report given to OTF Burk.
--- NOTE | 2018-04-23 19:47 | NUR ---
NURSE NOTES: Received report & pt from Maricarmen Encinas RN. Pt lying in bed, a&ox4, in room air. No s/s of acute distress & no c/o pain. Skin intact. IV site intact & S/L'd. Pt aware of NPO status after midnight & verbalized understanding. Bed in lowest position, call light within reach. Will continue to monitor.
[2018-04-23 20:00] VITALS: BP 106/66
[2018-04-23 20:47] LABS: BILIRUBIN,DIRECT 0.3 MG/DL (0.0-0.3); BILIRUBIN,TOTAL 1.5 MG/DL (0.2-1.0); FERRITIN 759 NG/ML (8-388); LACTATE DEHYDROGENASE 1322 U/L (81-234)
[2018-04-23 21:02] LABS: % IRON SATURATION 92 % (15-50); IRON 268 ug/dL (50-175); TOTAL IRON BINDING CAPACITY 291 ug/dL (250-450)
[2018-04-24 00:57] VITALS: BP 127/63
[2018-04-24 07:04] LABS: HEMATOCRIT 22.9 % (37.0-47.0); HEMOGLOBIN 7.7 G/DL (12.0-16.0); MEAN CORPUSCULAR VOLUME 82 FL (80-99); PLATELET COUNT 15 K/UL (150-450); RED BLOOD COUNT 2.79 M/UL (4.20-5.40); RED CELL DISTRIBUTION WIDTH 23.9 % (11.6-14.8); WHITE BLOOD COUNT 13.1 K/UL (4.8-10.8)
--- NOTE | 2018-04-24 07:30 | NUR ---
NURSE NOTES: REC'D AWAKE /ALERT. NO C/O PAIN. NPO FOR ABDOMINAL U/S. IN NO DISTRESS.
--- NOTE | 2018-04-24 07:30 | NUR ---
HAND-OFF: Report given to OTF Vides.
[2018-04-24 08:00] VITALS: BP 126/60
--- NOTE | 2018-04-24 08:42 | General Progress Note ---
Assessment/Plan Assessment/Plan IMPRESSION HIV Thrombocytopenia itchyness anemia PLAN care noted heme evaluation appreciated ?transfusion follow up labs and dic if able review med profile and discuss impression, plan, and exam edited and reviewed in detail care discussed with RN Subjective Allergies: Coded Allergies: No Known Allergies (Unverified , 04/18/13) Subjective findings noted overall same Objective Last 24 Hour Vital Signs Date Time Temp Pulse Resp B/P (MAP) Pulse Ox O2 Delivery O2 Flow Rate FiO2 04/24/18 00:57 98.2 72 17 127/63 (84) 99 04/23/18 21:00 Room Air 04/23/18 20:00 98.3 87 18 106/66 (79) 99 04/23/18 16:00 98.1 77 20 132/62 (85) 100 04/23/18 12:00 97.4 74 20 127/61 (83) 98 04/23/18 09:00 Room Air Intake and Output 04/23/18 04/24/18 19:00 07:00 Intake Total 910 ml Balance 910 ml Intake Oral 910 ml # Voids 1 Laboratory Tests 04/23/18 19:00: Reticulocyte Count 6.1H, Sickle Cell Screen [Pending], Haptoglobin [Pending], Prothrombin Time 10.4, Prothromb Time International Ratio 1.0, Fibrinogen 304, Iron Level 268H, Total Iron Binding Capacity 291, Percent Iron Saturation 92H, Unsaturated Iron Binding 23L, Ferritin 759H, Total Bilirubin 1.5H, Direct Bilirubin 0.3, Lactate Dehydrogenase 1322H, Vitamin B12 Level 975, Folate 13.8, Thyroid Stimulating Hormone (TSH) 3.433, Anti-Nuclear Antibody Screen [Pending] , Hepatitis A IgM Antibody [Pending], Hepatitis B Surface Antigen [Pending], Hepatitis B Core IgM Antibody [Pending], Hepatitis C Antibody [Pending], HIV (1& 2) Antibody Rapid Preliminary positiveH 04/24/18 05:35: White Blood Count 13.1H, Red Blood Count 2.79L, Hemoglobin 7.7L, Hematocrit 22.9L, Mean Corpuscular Volume 82, Mean Corpuscular Hemoglobin 27.6, Mean Corpuscular Hemoglobin Concent 33.7, Red Cell Distribution Width 23.9H, Platelet Count 15L, Mean Platelet Volume 13.1H, Neutrophils (%) (Auto) , Lymphocytes (%) (Auto) , Monocytes (%) (Auto) , Eosinophils (%) (Auto) , Basophils (%) (Auto) , Differential Total Cells Counted 100, Neutrophils % ( Manual) 59, Lymphocytes % (Manual) 32, Monocytes % (Manual) 9, Eosinophils % ( Manual) 0, Basophils % (Manual) 0, Band Neutrophils 0, Platelet Estimate DecreasedL, Platelet Morphology Normal, Polychromasia 1+, Hypochromasia 3+, Poikilocytosis 2+, Anisocytosis 4+, Spherocytes 1+, Schistocytes 2+ Height (Feet): 5 Height (Inches): 2.00 Weight (Pounds): 230 Objective WDWN NAD clear breath sounds bilaterally without rhonchi or wheeze [id number] without MRG NABS nontender no HSM no CCE nonfocal Geo Almeida MD Apr 24, 2018 08:42
[2018-04-24] MEDS ORDERED: LORazepam Inj 2mg/ml 1ml IV SCH (09:30)
[2018-04-24] MEDS ORDERED: Morphine Sulfate 2mg/ml Inj IVP SCH (09:30)
[2018-04-24] MEDS ORDERED: Lidocaine 1% Plain 30 ml INJ SCH (09:45)
[2018-04-24 12:00] VITALS: BP 123/73
--- NOTE | 2018-04-24 12:40 | General Progress Note ---
Assessment/Plan Assessment/Plan Assessment and Recs: # Severe thrombocytopenia - is most likely related to HIV poorly controlled, but will need to r/o malignancy as well as well as infection --> r/o underyling infection, imaging has been ordered --> transfuse as needed to keep plt >10k --> trend plt count 11-->14k-->15k --> obtain a bone marrow biopsy to r/o underlying lymphoma v malignancy --> transfuse if plt less than 10k and hgb less than 7 # Anemia of chronic disease, ferritin is elevated, tibc low --> w/u has been reviewed, some hemolysis mild is noted --> LDH elevated 1322 potentially poorly controlled hiv related # HIV (human immunodeficiency virus infection) poorly controlled --> okay to continue hiv meds --> consider id # Bilateral nephrolithiasis --> appreciate renal recs # Dizziness and hematuria r/o kidney stones. --> ivf has been given # Hypomagnesemia -- replete with mag Greatly appreciate consultation! Subjective Constitutional: Denies: no symptoms, chills, diaphoresis, fever, malaise, weakness, other HEENT: Denies: no symptoms, eye pain, blurred vision, tearing, double vision, ear pain, ear discharge, nose pain, nose congestion, throat pain, throat swelling, mouth pain, mouth swelling, other Cardiovascular: Denies: no symptoms, chest pain, edema, irregular heart rate, lightheadedness, palpitations, syncope, other Respiratory: Denies: no symptoms, cough, orthopnea, shortness of breath, SOB with excertion, SOB at rest, sputum, stridor, wheezing, other Gastrointestinal/Abdominal: Denies: no symptoms, abdomen distended, abdominal pain, black stools, tarry stools, blood in stool, constipated, diarrhea, difficulty swallowing, nausea, poor appetite, poor fluid intake, rectal bleeding , vomiting, other Genitourinary: Denies: no symptoms, burning, discharge, frequency, flank pain, hematuria, incontinence, pain, urgency, other Neurologic/Psychiatric: Denies: no symptoms, anxiety, depressed, emotional problems, headache, numbness, paresthesia, pre-existing deficit, seizure, tingling, tremors, weakness, other Endocrine: Denies: no symptoms, excessive sweating, flushing, intolerance to cold, intolerance to heat, increased hunger, increased thirst, increased urine, unexplained weight gain, unexplained weight loss, other Hematologic/Lymphatic: Denies: no symptoms, anemia, easy bleeding, easy bruising, other Allergies: Coded Allergies: No Known Allergies (Unverified , 04/18/13) Subjective sleeping, has been comfortable, agreeable to bone marrow bx Objective Last 24 Hour Vital Signs Date Time Temp Pulse Resp B/P (MAP) Pulse Ox O2 Delivery O2 Flow Rate FiO2 04/24/18 09:49 121/75 04/24/18 09:00 Room Air 04/24/18 08:00 99.4 73 19 126/60 (82) 98 04/24/18 00:57 98.2 72 17 127/63 (84) 99 04/23/18 21:00 Room Air 04/23/18 20:00 98.3 87 18 106/66 (79) 99 04/23/18 16:00 98.1 77 20 132/62 (85) 100 Intake and Output 04/23/18 04/24/18 19:00 07:00 Intake Total 910 ml Balance 910 ml Intake Oral 910 ml # Voids 1 Laboratory Tests 04/23/18 19:00: Reticulocyte Count 6.1H, Sickle Cell Screen [Pending], Haptoglobin [Pending], Prothrombin Time 10.4, Prothromb Time International Ratio 1.0, Fibrinogen 304, Iron Level 268H, Total Iron Binding Capacity 291, Percent Iron Saturation 92H, Unsaturated Iron Binding 23L, Ferritin 759H, Total Bilirubin 1.5H, Direct Bilirubin 0.3, Lactate Dehydrogenase 1322H, Vitamin B12 Level 975, Folate 13.8, Thyroid Stimulating Hormone (TSH) 3.433, Anti-Nuclear Antibody Screen [Pending] , Hepatitis A IgM Antibody [Pending], Hepatitis B Surface Antigen [Pending], Hepatitis B Core IgM Antibody [Pending], Hepatitis C Antibody [Pending], HIV (1& 2) Antibody Rapid Preliminary positiveH 04/24/18 05:35: White Blood Count 13.1H, Red Blood Count 2.79L, Hemoglobin 7.7L, Hematocrit 22.9L, Mean Corpuscular Volume 82, Mean Corpuscular Hemoglobin 27.6, Mean Corpuscular Hemoglobin Concent 33.7, Red Cell Distribution Width 23.9H, Platelet Count 15L, Mean Platelet Volume 13.1H, Neutrophils (%) (Auto) , Lymphocytes (%) (Auto) , Monocytes (%) (Auto) , Eosinophils (%) (Auto) , Basophils (%) (Auto) , Differential Total Cells Counted 100, Neutrophils % ( Manual) 59, Lymphocytes % (Manual) 32, Monocytes % (Manual) 9, Eosinophils % ( Manual) 0, Basophils % (Manual) 0, Band Neutrophils 0, Platelet Estimate DecreasedL, Platelet Morphology Normal, Polychromasia 1+, Hypochromasia 3+, Poikilocytosis 2+, Anisocytosis 4+, Spherocytes 1+, Schistocytes 2+ Height (Feet): 5 Height (Inches): 2.00 Weight (Pounds): 230 General Appearance: alert EENT: TMs normal Neck: normal alignment Cardiovascular: regular rhythm Respiratory/Chest: lungs clear Abdomen: no organomegaly Extremities: non-tender Edema: 1+ Leg (L), 1+ Leg (R) Edema: mild edema Antony Julian MD Apr 24, 2018 12:40
[2018-04-24] MEDS ORDERED: Lidocaine 1% Plain 30 ml INJ PRN (14:00)
--- NOTE | 2018-04-24 14:07 | NUR ---
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 97.9 HR 75 RR 20 B/P 123/75 WBC 13.1 H/H 7.7/22.9 PLT 15 IS: PREDNISONE PO PEPCID PO NEURONTIN PO BONE MARROW ASP MED/SURG STATUS
--- NOTE | 2018-04-24 14:09 | Diagnostic Imaging Report ---
Indication: Abdominal distention Technique: Stein-scale and duplex images of the upper abdomen were obtained Comparison: Findings: Gallbladder is unremarkable, without stones, wall thickening, nor pericholecystic fluid. Sonographic Craven's sign is negative. Common bile duct measures 5 mm in diameter. No intrahepatic biliary ductal dilatation. Liver demonstrates normal echogenicity, no focal abnormality. Portal vein and hepatic veins are patent. Pancreas is unremarkable. Spleen is unremarkable. Left kidney measures 9.8 cm in length. Right kidney measures 10.2 cm length. Both kidneys demonstrate normal echogenicity. There is no hydronephrosis. Bilateral renal sinus echogenic foci presumably correspond to calyceal calcifications demonstrated on recent CT scan of 04/22/2018 . Non-aneurysmal abdominal aorta . Impression: Bilateral nonobstructive nephrolithiasis, also previously reported Negative for gallstones or dilated ducts
--- NOTE | 2018-04-24 15:20 | NUR ---
INSURANCE ALL CLINICALS AND REVIEWS FAXED TO: [employer] NCM:ALIZE P:[phone] F:[phone] TRK#[id number]
[2018-04-24 16:00] VITALS: BP 128/75
--- NOTE | 2018-04-24 17:47 | NUR ---
NURSE NOTES: MILTON FROM RADIOLOGY CALLED RE : PT'S BONE MARROW ASPIRATION TO BE DONE TOMORROW. ASPIRATION TRAY NOT AVAILABLE. DR Alessandro CHING NOTIFIED AND SAID OK..
--- NOTE | 2018-04-24 19:00 | NUR ---
NURSE NOTES: Patient alert oriented, denies pain, fall risk, up with assistance, uses call light. No distress.
--- NOTE | 2018-04-24 19:34 | NUR ---
HAND-OFF: Report given to Mone Bar LVN.
--- NOTE | 2018-04-24 20:00 | NUR ---
HAND-OFF: Report given to Elpidio Best
[2018-04-24 20:05] VITALS: BP 112/66
--- NOTE | 2018-04-24 21:00 | NUR ---
NURSE NOTES: Pt is in bed, awake and verbal. No acute distress noted. Pt is awaiting bone marrow biopsy tomorrow. Bed low in position,side rails up and call light within reach. Pt is instructed call before getting out of bed. Walker by bedside. Pt will be monitored.
[2018-04-25 00:08] VITALS: BP 142/72
--- NOTE | 2018-04-25 03:00 | NUR ---
NURSE NOTES: pt is in bed, asleep. No acute distress noted.
[2018-04-25 03:55] VITALS: BP 136/69
--- NOTE | 2018-04-25 07:30 | NUR ---
HAND-OFF: Report given to OTF Vides.
--- NOTE | 2018-04-25 07:44 | NUR ---
NURSE NOTES: AWAKE/ALERT. NO C/O PAIN . IN NO APPARENT DISTRESS. FOR BOME MARROW ASPIRATION TODAY.
[2018-04-25 08:00] VITALS: BP 93/57
--- NOTE | 2018-04-25 08:46 | General Progress Note ---
Assessment/Plan Assessment/Plan IMPRESSION HIV Thrombocytopenia itchyness anemia PLAN care noted heme evaluation appreciated await bm biopst/results and [place] follow up labs and dic if able review med profile and discuss impression, plan, and exam edited and reviewed in detail care discussed with RN Subjective Allergies: Coded Allergies: No Known Allergies (Unverified , 04/18/13) Subjective findings noted overall same Objective Last 24 Hour Vital Signs Date Time Temp Pulse Resp B/P (MAP) Pulse Ox O2 Delivery O2 Flow Rate FiO2 04/25/18 08:30 93/57 04/25/18 08:00 98.0 81 20 93/57 (69) 100 04/25/18 03:55 98.4 81 18 136/69 (91) 99 04/25/18 00:08 98.6 72 18 142/72 (95) 100 04/24/18 21:00 Room Air 04/24/18 20:05 98.4 86 16 112/66 (81) 100 04/24/18 16:00 98.4 80 19 128/75 (92) 100 04/24/18 12:00 97.9 75 20 123/73 (90) 100 04/24/18 09:49 121/75 04/24/18 09:00 Room Air Intake and Output 04/24/18 04/25/18 19:00 07:00 Intake Total 685 ml 360 ml Balance 685 ml 360 ml Intake Oral 685 ml 360 ml # Voids 2 3 Height (Feet): 5 Height (Inches): 2.00 Weight (Pounds): 229 Objective WDWN NAD clear breath sounds bilaterally without rhonchi or wheeze [id number] without MRG NABS nontender no HSM no CCE nonfocal Geo Almeida MD Apr 25, 2018 08:45
--- NOTE | 2018-04-25 08:47 | NUR ---
NURSE NOTES: EDWARD FROM RADIOLOGY CALLED RE : PT'S BONE MARROW ASPIRATION. CANT DO IT DUE TO LOW PLATELET COUNT . CURRENT LEVEL IS 15. DR Alessandro CHING CALLED LEFT MESSAGE TO RETURN CALL.
[2018-04-25] MEDS ORDERED: LORazepam Inj 2mg/ml 1ml IV SCH (11:59)
[2018-04-25 12:00] VITALS: BP 125/76
[2018-04-25] MEDS ORDERED: Morphine Sulfate 2mg/ml Inj IVP SCH (12:00)
--- NOTE | 2018-04-25 13:03 | NUR ---
NURSE NOTES: DR. Alessandro CHING INFORMED THAT DR Alessandro CRISOSTOMO SAID THERE IS NO PATHOLOGIST AND BONE MARROW ASPIRATION WILL BE DONE TOMORROW, PLATELETS TRANSFUSION WILL BE GIVEN TONITE BEFORE IT EXPIRES AT MIDNIGNT PLATELET TO BE DRAWN AFTER TRANSFUSION.LEFT MESSAGE TO RETURN CALL.
--- NOTE | 2018-04-25 13:04 | NUR ---
NURSE NOTES: Spoke with Dr. Sow regarding Delay in bone marrow aspiration, He stated "There is no Pathologist available so we have to delay the bone marrow aspiration until tommorow, but make sure the platelets are given first thing in the morning." Spoke with Stephan in Radiology @ 12:45 regarding the delay and also called blood bank to inform them of the delay spoke with Maxine @ 12:48. She stated, " There is no need to change the order in the computer, we are aware." Informed Mahogany Best
[2018-04-25] MEDS ORDERED: Lidocaine 1% Plain 30 ml INJ ONE (13:30)
[2018-04-25 16:00] VITALS: BP 135/92
--- NOTE | 2018-04-25 19:22 | NUR ---
HAND-OFF: Report given to anuja richard rn.
--- NOTE | 2018-04-25 19:24 | NUR ---
NURSE NOTES: resting in bed. in no apparent distress.
--- NOTE | 2018-04-25 19:30 | NUR ---
NURSE NOTES: Received report from OTF Vides. Received pt lying in bed, A&OX4, denies pain at this time, no distress noted. IV L AC patent and intact. Pt ambulated to the restroom with steady gait, voided without any difficulty, safely back in bed, no distress noted. Bed in low position and locked, side rails up x 2, call light within reach.
[2018-04-25 19:51] VITALS: BP 130/63
--- NOTE | 2018-04-25 21:00 | NUR ---
NURSE NOTES: First unit of Platelet started. Will continue to monitor.
--- NOTE | 2018-04-25 21:40 | NUR ---
NURSE NOTES: First unit of Platelet completed without any adverse reaction noted. Pt denies any pain at this time. No distress noted. VSS.
--- NOTE | 2018-04-25 21:50 | NUR ---
NURSE NOTES: Second unit of Platelet started. No distress noted. Will continue to monitor.
--- NOTE | 2018-04-25 22:25 | NUR ---
NURSE NOTES: Second of Platelet completed without any adverse reaction noted. Pt denies pain at this time. No distress noted. VSS.
[2018-04-25 23:40] LABS: HEMATOCRIT 18.3 % (37.0-47.0); MEAN CORPUSCULAR VOLUME 86 FL (80-99); PLATELET COUNT 70 K/UL (150-450); RED BLOOD COUNT 2.11 M/UL (4.20-5.40); RED CELL DISTRIBUTION WIDTH 31.3 % (11.6-14.8); WHITE BLOOD COUNT 17.5 K/UL (4.8-10.8)
[2018-04-26] VITALS (14 sets, daily range): BP systolic 112–148; BP diastolic 70–91
--- NOTE | 2018-04-26 00:08 | NUR ---
NURSE NOTES: Sly from the lab spoke with RAJNI Ozuna regarding Hemoglobin critical lab result 6.1.
[2018-04-26 00:09] LABS: HEMOGLOBIN 6.1 G/DL (12.0-16.0)
--- NOTE | 2018-04-26 00:10 | NUR ---
NURSE NOTES: Notified Dr. Antony Julian regarding critical lab result Hemoglobin 6.1. Awaiting for call back. RAJNI Ozuna aware.
--- NOTE | 2018-04-26 00:30 | NUR ---
NURSE NOTES: Texted Dr Antony Julian per answering message regarding critical lab result Hemoglobin 6.1. Awaiting for call back. RAJNI Ozuna made aware.
--- NOTE | 2018-04-26 01:00 | NUR ---
NURSE NOTES: Called Dr. Antony Julian answering service regarding pt critical lab result Hemoglobin 6.1. Per Laila (answering service), the only way to get a hold of Dr. Julian is to call his cell phone . Called Dr. Julian cell phone twice and left two messages without a return call back. Gagan (nursing security shift supervisor) made aware. Per Gagan, he will call back.
--- NOTE | 2018-04-26 01:15 | NUR ---
NURSE NOTES: Pt asleep asymptomatic denies any pain or discomfort. No distress noted. Will continue to monitor.
--- NOTE | 2018-04-26 01:32 | NUR ---
NURSE NOTES: Gagan (Nursing supervisor yard) called. Per Gagan, he doesn't have any other number to get a hold of Dr. Julian only his cell phone . Marguerite Fraah messages left for Dr. Julian and Dr. Almeida twice without call back. Per Gagan, to keep on calling.
--- NOTE | 2018-04-26 01:49 | NUR ---
NURSE NOTES: Dr. Antony Julian responded orders given to check CBC in am only 6 am. RAJNI Ozuna made aware.
--- NOTE | 2018-04-26 05:19 | NUR ---
NURSE NOTES: Dr. Almeida ordered 2 units of PRBC. Addendum: 04/26/18 at 0623 by ERIK SAMS RN Transfuse 2 units PRBC.
[2018-04-26 06:40] LABS: HEMATOCRIT 18.1 % (37.0-47.0); MEAN CORPUSCULAR VOLUME 86 FL (80-99); PLATELET COUNT 23 K/UL (150-450); RED BLOOD COUNT 2.11 M/UL (4.20-5.40); RED CELL DISTRIBUTION WIDTH 29.8 % (11.6-14.8); WHITE BLOOD COUNT 14.1 K/UL (4.8-10.8)
[2018-04-26 06:59] LABS: HEMOGLOBIN 5.9 G/DL (12.0-16.0)
--- NOTE | 2018-04-26 07:01 | NUR ---
NURSE NOTES: Received call from Emely from the lab critical lab result Hemoglobin. Will endorse to next nurse.
--- NOTE | 2018-04-26 07:35 | NUR ---
HAND-OFF: Report given to OTF Nguyen. Pt in stable condition.
--- NOTE | 2018-04-26 07:41 | General Progress Note ---
Assessment/Plan Assessment/Plan IMPRESSION HIV Thrombocytopenia itchyness anemia PLAN transfusion await heme recommendations and discharge plan impression, plan, and exam edited and reviewed in detail care discussed with RN Subjective Allergies: Coded Allergies: No Known Allergies (Unverified , 04/18/13) Subjective findings noted anemia worse transfusion ordered Objective Last 24 Hour Vital Signs Date Time Temp Pulse Resp B/P (MAP) Pulse Ox O2 Delivery O2 Flow Rate FiO2 04/26/18 04:00 98.4 96 19 130/74 (92) 96 04/25/18 21:00 Room Air 04/25/18 19:51 97.9 95 18 130/63 (85) 97 04/25/18 16:00 97.9 83 20 135/92 (106) 04/25/18 12:00 97.3 89 20 125/76 (92) 99 04/25/18 08:50 Room Air 04/25/18 08:30 93/57 04/25/18 08:00 98.0 81 20 93/57 (69) 100 Intake and Output 04/25/18 04/26/18 19:00 07:00 Intake Total 720 ml 738 ml Balance 720 ml 738 ml Intake Oral 720 ml 100 ml Blood Product 638 ml # Voids 5 3 Laboratory Tests 04/25/18 23:25: White Blood Count 17.5H, Red Blood Count 2.11L, Hemoglobin 6.1*L, Hematocrit 18.3L, Mean Corpuscular Volume 86, Mean Corpuscular Hemoglobin 28.8, Mean Corpuscular Hemoglobin Concent 33.3, Red Cell Distribution Width 31.3H, Platelet Count 70L, Mean Platelet Volume 5.0L, Neutrophils (%) (Auto) , Lymphocytes (%) (Auto) , Monocytes (%) (Auto) , Eosinophils (%) (Auto) , Basophils (%) (Auto) 04/26/18 06:07: White Blood Count 14.1H, Red Blood Count 2.11L, Hemoglobin 5.9*L, Hematocrit 18.1L, Mean Corpuscular Volume 86, Mean Corpuscular Hemoglobin 28.0, Mean Corpuscular Hemoglobin Concent 32.7, Red Cell Distribution Width 29.8H, Platelet Count 23#L, Mean Platelet Volume 14.0H, Neutrophils (%) (Auto) , Lymphocytes (%) (Auto) , Monocytes (%) (Auto) , Eosinophils (%) (Auto) , Basophils (%) (Auto) , Neutrophils % (Manual) [Pending], Lymphocytes % (Manual) [Pending], Platelet Estimate [Pending], Platelet Morphology [Pending] Height (Feet): 5 Height (Inches): 2.00 Weight (Pounds): 229 Objective WDWN NAD clear breath sounds bilaterally without rhonchi or wheeze [id number] without MRG NABS nontender no HSM no CCE nonfocal Geo Almeida MD Apr 26, 2018 07:41
--- NOTE | 2018-04-26 08:00 | NUR ---
NURSE NOTES: Entered room with outgoing RN Reji. Pt A&O x 4, laying in bed. IV site dry & intact in left upper arm. Vital signs within normal limits. Pt is NPO awaiting CT scan. Call light in reach, side rails up x2, with bed in lowest position. Will continue to monitor pt.
[2018-04-26] MEDS ORDERED: Lidocaine 1% Plain 30 ml INJ SCH ×2 (12:00→13:38)
[2018-04-26] MEDS ORDERED: Morphine Sulfate 2mg/ml Inj IVP SCH ×2 (12:00→14:00)
[2018-04-26] MEDS ORDERED: LORazepam Inj 2mg/ml 1ml IV SCH ×2 (12:00→13:38)
[2018-04-26] MEDS ORDERED: Lidocaine 1% Plain 30 ml INJ PRN (12:20)
[2018-04-26] MEDS ORDERED: Morphine Sulfate 2mg/ml Inj IVP PRN (12:21)
[2018-04-26] MEDS ORDERED: LORazepam Inj 2mg/ml 1ml IV PRN (12:21)
--- NOTE | 2018-04-26 14:19 | NUR ---
RD ASSESSMENT & RECOMMENDATIONS SEE CARE ACTIVITY FOR COMPLETE ASSESSMENT DAILY ESTIMATED NEEDS: Needs based on HIV, obese 63.5kg adj 25-30 kcals/kg 5918-7045 total kcals 1-2 g protein/kg 64-127 g total protein 25-30 mL/kg 3272-6810 total fluid mLs NUTRITION DIAGNOSIS: -Altered nutrition related lab values r/t clinical status, anemia as evidenced by Hgb 5.9, elev LD (1322). -Obese etiology unknown as evidenced by BMI >40, pt is 208% IBW. CURRENT DIET: Regular PO DIET RECOMMENDATIONS: Regular diet as tolerated ADDITIONAL RECOMMENDATIONS: 1) Obtain a standing wt as able for accurate CBW 2) Monitor BG on steroids/ need for hypoglycemics, ssi 3) Check lytes daily, replete as needed 4) Rec Vit C w/ Iron supplements
--- NOTE | 2018-04-26 14:30 | NUR ---
NURSE NOTES: pt left the floor for CT, with bone marrow aspiration biopsy. pt left the floor with no signs of distress or other issues at this time. - pt was premedicated prior yto go done for procedure. Platelets infusion started and per Ezra VANESSA joel monitor patient during procedure and we will start second bag once Ezra VANESSA notifies me. I will f/u as needed.
[2018-04-26] MEDS ORDERED: NS 275ml ONE (14:39)
[2018-04-26] MEDS ORDERED: Midazolam 2mg/2ml Inj ONE (14:48)
[2018-04-26] MEDS ORDERED: fentaNYL 100 mcg/2 mL IV ONE (14:48)
--- NOTE | 2018-04-26 15:49 | Pre-Procedure Note/Attestation ---
Pre-Procedure Note/Attestation Complete Prior to Procedure Planned Procedure: left Procedure Narrative: bone marrow biopsy Indications for Procedure Pre-Operative Diagnosis: thrombocytopenia Attestation I attest that I discussed the nature of the procedure; its benefits; risks and complications; and alternatives (and the risks and benefits of such alternatives ), prior to the procedure, with the patient (or the patient's legal textile designs sales representative). I attest that I re-evaluated the patient just prior to the surgery and that there has been no change in the patient's H&P, except as documented below: Miguel Dodge M.D. Apr 26, 2018 15:49
--- NOTE | 2018-04-26 16:06 | Diagnostic Imaging Report ---
Indication: Ever osteopenia. Request made for bone marrow biopsy. Platelet transfusion performed before and during the biopsy per CT dose (automated exposure control utilized for dose reduction ): Total DLP 1241 mGycm; CTDI vol 0.2, 19.8, 19.5, 19.5, 19.3, 19.3 mGy Technique/findings: Issues discussed at length with the patient including risks, benefits and alternatives. Informed consent obtained. Patient positioned prone on the CT table. Good markers were placed to overlie the bilateral iliac bones. Limited planning CT scan of the pelvis was obtained and appropriate access site was chosen. The left iliac bone was selected for biopsy. Incidental note is made of mild degenerative changes in the bilateral hips. Imaged portions of the visceral pelvis demonstrate no acute abnormality. There are atherosclerotic vascular calcifications and degenerative changes in the lower lumbar spine. Access site was prepped and draped in the usual sterile fashion. Area was locally anesthetized 1% lidocaine. A 22-gauge spinal needle was advanced down to the left iliac bone and local anesthesia was also delivered to the periosteum. A small dermatotomy was made. Next, the 11-gauge bone biopsy needle was advanced and gauge into the left iliac bone under CT guidance. The inner tremaine tip Aspiration was performed and bone marrow aspirate was submitted directly to the pathologist was in the room for the procedure. Next, the stylet was removed. However bone was advance utilizing the drill to obtain a core biopsy specimen. Needle was removed and hemostasis achieved with manual compression. Core biopsy specimen was also submitted to the pathologist. Dressing was applied. Completion image was obtained initially no evidence of hematoma status post biopsy. She tolerated the procedure well and left the department stable condition. IMPRESSION: Technically successful CT guided bone marrow biopsy detailed above. Marrow aspirate and core biopsy specimens submitted directly to the pathologist was in the room for the procedure. The CT scanner at [facility] is accredited by the [employer] and the scans are performed using protocols designed to limit radiation exposure to as low as reasonably achievable to attain images of sufficient resolution adequate for diagnostic evaluation.
--- NOTE | 2018-04-26 16:30 | NUR ---
NURSE NOTES: Patient back to the floor with no signs of distress or other issues at this time. second unit of platelets still running we will continue to monitor. I will f/u as needed.
--- NOTE | 2018-04-26 19:45 | NUR ---
NURSE NOTES: Received report from OTF Nguyen. Received pt lying in bed, A&OX4, denies pain at this time, no distress noted. Bed in low position and locked, side rails up x 2, call light within reach. Will continue to monitor.
--- NOTE | 2018-04-26 20:31 | NUR ---
HAND-OFF: Report given to Reji VANESSA, pt in stable condition. Addendum: 04/26/18 at 2031 by Patrick De RN OTF endorsed to incoming nurse that pt still needs to have two units of PRBC infused.
--- NOTE | 2018-04-26 21:45 | NUR ---
NURSE NOTES: First unit of PRBC started, pt denies any discomfor, no SOB, no distress noted. Will continue to monitor.
[2018-04-27] VITALS: BP 130/73
--- NOTE | 2018-04-27 01:45 | NUR ---
NURSE NOTES: First unit of PRBC completed without any adverse reaction. Pt denies any pain, no SOB, no distress noted.
--- NOTE | 2018-04-27 02:00 | NUR ---
NURSE NOTES: Second unit of PRBC started. Pt denies any pain, no SOB, no distress noted. Will continue to monitor.
--- NOTE | 2018-04-27 03:10 | NUR ---
NURSE NOTES: Pt pulled out IV while blood transfusion in progress. Re-inserted new iV L FA #22 patent and intact. Resume blood transfusion.
[2018-04-27 04:00] VITALS: BP 124/65
--- NOTE | 2018-04-27 05:50 | NUR ---
NURSE NOTES: Second unit of blood completed without any adverse reaction. Pt denies any pain, no SOB, no distress noted. Will continue to monitor.
--- NOTE | 2018-04-27 07:40 | NUR ---
HAND-OFF: Report given to OTF Nguyen. Pt in stable condition.
[2018-04-27 08:00] VITALS: BP 128/82
--- NOTE | 2018-04-27 08:00 | NUR ---
NURSE NOTES: Received report from Reji VANESSA, pt a/a/o x4 laying in bed with no signs of distress or other issues at this time. iv on the left gauge #22 heplock. per waste management recycling technician report pt got transfused 2 units of PRBC. pt is in a regular diet, pt is able to tolerated well. call light with in reach, bed in lowest position. side raled up x2. I will f/u as needed.
--- NOTE | 2018-04-27 08:00 | NUR ---
NURSE NOTES: Received report from outgoing RN, Reji. Pt is A&O x 4, eating breakfast in semi-fowlers position. Hep-lock on right antecubital. Vitals within normal limits. Call light in reach, side rails up x2, bed in lowest position. Will continue to monitor pt.
--- NOTE | 2018-04-27 09:15 | NUR ---
NURSE NOTES: Lab arrived to draw hematology, coagulation, and ZAYNAB screen labs. Pt is stable and resting in bed. Call light in reach, side rails up x2, bed in lowest position. Will continue to monitor Pt.
[2018-04-27 09:51] LABS: INR 1.1 (0.9-1.1)
[2018-04-27 09:52] LABS: BILIRUBIN,DIRECT 0.4 MG/DL (0.0-0.3); BILIRUBIN,TOTAL 2.1 MG/DL (0.2-1.0)
[2018-04-27 09:53] LABS: HEMATOCRIT 22.5 % (37.0-47.0); HEMOGLOBIN 7.8 G/DL (12.0-16.0); MEAN CORPUSCULAR VOLUME 84 FL (80-99); PLATELET COUNT 20 K/UL (150-450); RED BLOOD COUNT 2.67 M/UL (4.20-5.40); RED CELL DISTRIBUTION WIDTH 24.5 % (11.6-14.8); WHITE BLOOD COUNT 9.6 K/UL (4.8-10.8)
[2018-04-27 12:00] VITALS: BP 176/70
--- NOTE | 2018-04-27 12:45 | NUR ---
NURSE NOTES: Pt denies any pain and discomfort. Ate lunch and is now resting supine in bed. Call light in reach, side rails up x2, and bed in lowest position. Will continue to monitor Pt.
--- NOTE | 2018-04-27 14:24 | General Progress Note ---
Assessment/Plan Assessment/Plan IMPRESSION HIV Thrombocytopenia itchyness anemia PLAN transfusion completed bm completed await heme recommendations and discharge plan impression, plan, and exam edited and reviewed in detail care discussed with RN Subjective Allergies: Coded Allergies: No Known Allergies (Unverified , 04/18/13) Subjective findings noted anemia better after transfusion Objective Last 24 Hour Vital Signs Date Time Temp Pulse Resp B/P (MAP) Pulse Ox O2 Delivery O2 Flow Rate FiO2 04/27/18 12:00 98.6 66 20 176/70 (105) 99 04/27/18 09:09 Room Air 04/27/18 08:45 128/82 04/27/18 08:00 98.3 73 18 128/82 (97) 99 04/27/18 04:00 98.6 78 18 124/65 (84) 98 04/27/18 00:00 97.2 83 19 130/73 (92) 98 04/26/18 21:00 Room Air 04/26/18 20:00 97.8 97 18 121/75 (90) 100 04/26/18 15:45 97.9 96 18 120/70 (87) 100 04/26/18 15:40 113 18 135/80 (98) 100 04/26/18 15:35 112 20 137/85 (102) 100 04/26/18 15:30 107 22 148/91 (110) 100 04/26/18 15:25 108 22 139/84 (102) 100 04/26/18 15:20 104 20 123/75 (91) 100 04/26/18 15:15 100 20 122/75 (91) 100 04/26/18 15:10 97.9 97 20 135/79 (97) 100 04/26/18 15:08 97.9 04/26/18 14:57 92 18 2.0 Intake and Output 04/26/18 04/27/18 19:00 07:00 Intake Total 120 ml 1000 ml Balance 120 ml 1000 ml Intake Oral 120 ml 300 ml Blood Product 700 ml # Voids 2 Laboratory Tests 04/27/18 09:15: White Blood Count 9.6, Red Blood Count 2.67L, Hemoglobin 7.8#L, Hematocrit 22.5L , Mean Corpuscular Volume 84, Mean Corpuscular Hemoglobin 29.4, Mean Corpuscular Hemoglobin Concent 34.9, Red Cell Distribution Width 24.5H, Platelet Count 20L, Mean Platelet Volume 13.2H, Neutrophils (%) (Auto) , Lymphocytes (%) (Auto) , Monocytes (%) (Auto) , Eosinophils (%) (Auto) , Basophils (%) (Auto) , Differential Total Cells Counted 100, Neutrophils % ( Manual) 62, Lymphocytes % (Manual) 26, Monocytes % (Manual) 11H, Eosinophils % ( Manual) 0, Basophils % (Manual) 0, Metamyelocytes % 1H, Band Neutrophils 0, Nucleated Red Blood Cells 37, Platelet Estimate DecreasedL, Platelet Morphology Normal, Polychromasia 2+, Hypochromasia 2+, Poikilocytosis 1+, Anisocytosis 3+, Spherocytes 2+, Schistocytes 1+, Reticulocyte Count 8.0H, Hemoglobin A [Pending] , Hemoglobin A2 [Pending], Hemoglobin C [Pending], Hemoglobin F () [Pending ], Hemoglobin S [Pending], Variant Hemoglobin [Pending], Hemoglobin Electrophoresis Interp [Pending], Hemoglobin Interpretation [Pending], Hemoglobin Solubility [Pending], Haptoglobin [Pending], Prothrombin Time 11.4, Prothromb Time International Ratio 1.1, Total Bilirubin 2.1H, Direct Bilirubin 0.4H, Lactate Dehydrogenase 1780H, Rheumatoid Factor Screen [Pending], Anti- Nuclear Antibody Screen [Pending] Height (Feet): 5 Height (Inches): 2.00 Weight (Pounds): 229 Objective WDWN NAD clear breath sounds bilaterally without rhonchi or wheeze [id number] without MRG NABS nontender no HSM no CCE nonfocal Geo Almeida MD Apr 27, 2018 14:24
--- NOTE | 2018-04-27 15:19 | NUR ---
CARDIOLOGY CONSULTANTSTEAM ENGINEER SI: ANEMIA,THROMBOCYTOPENIA T. 98.6 HR 66 RR 20 B/P 176/78 H/H 7.8/22.5 PLT 20 IS: AVAPRO PO PREDNISONE PO PEPCID PO MED/SURG STATUS
--- NOTE | 2018-04-27 15:46 | NUR ---
INSURANCE ALL CLINICALS AND REVIEWS FAXED TO: [employer] NCM:ALIZE P:[phone] F:[phone] TRK#[id number]
[2018-04-27 16:00] VITALS: BP 134/73
--- NOTE | 2018-04-27 18:39 | NUR ---
NURSE NOTE: Pt is stable and supine in bed. Denies pain or distress. IV heplock site intact & patent. Call light in reach, side rails up x2, and bed in lowest position. Will continue to monitor pt.
[2018-04-27 20:00] VITALS: BP 120/70
--- NOTE | 2018-04-27 20:04 | NUR ---
HAND-OFF: Report given to Ghada VANESSA, pt in stable condition.
--- NOTE | 2018-04-27 20:50 | NUR ---
NURSE NOTES: Patient in bed asleep arousable to name, no s/s distress noted. Assisted pt to bathroom. Bed in lowest position for safety. Call light within reach.
[2018-04-28] VITALS: BP 134/76
[2018-04-28 04:00] VITALS: BP 148/78
--- NOTE | 2018-04-28 07:25 | NUR ---
HAND-OFF: Report given to Leah PERDUE.
[2018-04-28 08:00] VITALS: BP 132/71
--- NOTE | 2018-04-28 09:01 | General Progress Note ---
Assessment/Plan Assessment/Plan IMPRESSION HIV Thrombocytopenia itchyness anemia PLAN no other changes for now await heme recommendations and discharge plan impression, plan, and exam edited and reviewed in detail care discussed with RN Subjective Allergies: Coded Allergies: No Known Allergies (Unverified , 04/18/13) Subjective findings noted d/w heme awaiting clearance Objective Last 24 Hour Vital Signs Date Time Temp Pulse Resp B/P (MAP) Pulse Ox O2 Delivery O2 Flow Rate FiO2 04/28/18 08:58 132/71 04/28/18 08:00 97.6 69 19 132/71 (91) 100 04/28/18 04:00 98.2 69 18 148/78 (101) 99 04/28/18 00:00 99.0 80 19 134/76 (95) 100 04/27/18 21:00 Room Air 04/27/18 20:00 98.6 81 18 120/70 (87) 98 04/27/18 16:00 97.8 79 18 134/73 (93) 100 04/27/18 12:00 98.6 66 20 176/70 (105) 99 04/27/18 09:09 Room Air Intake and Output 04/27/18 04/28/18 18:59 06:59 Intake Total 720 ml 120 ml Balance 720 ml 120 ml Intake Oral 720 ml 120 ml # Voids 2 3 Laboratory Tests 04/27/18 09:15: White Blood Count 9.6, Red Blood Count 2.67L, Hemoglobin 7.8#L, Hematocrit 22.5L , Mean Corpuscular Volume 84, Mean Corpuscular Hemoglobin 29.4, Mean Corpuscular Hemoglobin Concent 34.9, Red Cell Distribution Width 24.5H, Platelet Count 20L, Mean Platelet Volume 13.2H, Neutrophils (%) (Auto) , Lymphocytes (%) (Auto) , Monocytes (%) (Auto) , Eosinophils (%) (Auto) , Basophils (%) (Auto) , Differential Total Cells Counted 100, Neutrophils % ( Manual) 62, Lymphocytes % (Manual) 26, Monocytes % (Manual) 11H, Eosinophils % ( Manual) 0, Basophils % (Manual) 0, Metamyelocytes % 1H, Band Neutrophils 0, Nucleated Red Blood Cells 37, Platelet Estimate DecreasedL, Platelet Morphology Normal, Polychromasia 2+, Hypochromasia 2+, Poikilocytosis 1+, Anisocytosis 3+, Spherocytes 2+, Schistocytes 1+, Reticulocyte Count 8.0H, Hemoglobin A [Pending] , Hemoglobin A2 [Pending], Hemoglobin C [Pending], Hemoglobin F () [Pending ], Hemoglobin S [Pending], Variant Hemoglobin [Pending], Hemoglobin Electrophoresis Interp [Pending], Hemoglobin Interpretation [Pending], Hemoglobin Solubility [Pending], Haptoglobin [Pending], Prothrombin Time 11.4, Prothromb Time International Ratio 1.1, Total Bilirubin 2.1H, Direct Bilirubin 0.4H, Lactate Dehydrogenase 1780H, Rheumatoid Factor Screen [Pending], Anti- Nuclear Antibody Screen [Pending] Height (Feet): 5 Height (Inches): 2.00 Weight (Pounds): 229 Objective WDWN NAD clear breath sounds bilaterally without rhonchi or wheeze [id number] without MRG NABS nontender no HSM no CCE nonfocal Geo Almeida MD Apr 28, 2018 09:00
--- NOTE | 2018-04-28 09:13 | NUR ---
SS note Chart reviewed; no SW needs identified at this time. SW to follow as needed.
[2018-04-28] MEDS ORDERED: Sennosides 8.6mg tab ORAL SCH (10:15)
--- NOTE | 2018-04-28 10:26 | NUR ---
NURSE NOTES: patient is A/A/Ox3, periods of forgetfulness. provided bsc for the patient because she c/o dizziness upon walking to the bathroom with a walker. instructed to use the call light for assistance. patient c/o constipations and obtained new order from PMD. No appetite this breakfast. keep bed in lowest position. call light within reach. siderails are up for safety. will cont to monitor.
--- NOTE | 2018-04-28 10:47 | NUR ---
NURSE NOTES: administered senokot for constipation. will cont to monitor.
[2018-04-28 12:00] VITALS: BP 149/74
[2018-04-28] MEDS ORDERED: Tubing Blood Filter IV ONE (13:07)
--- NOTE | 2018-04-28 15:36 | General Progress Note ---
Assessment/Plan Status: stable Assessment/Plan # Severe thrombocytopenia - is most likely related to HIV poorly controlled, but will need to r/o malignancy as well as well as infection --> r/o underyling infection, imaging has been ordered --> transfuse as needed to keep plt >10k --> trend plt count 11-->14k-->15k --> obtain a bone marrow biopsy to r/o underlying lymphoma v malignancy - performed 04/26, awaiting path report --> transfuse if plt less than 10k and hgb less than 7 # Anemia of chronic disease, ferritin is elevated, tibc low --> w/u has been reviewed, some hemolysis mild is noted --> LDH elevated 1322 potentially poorly controlled hiv related --> Hgb goal >7, transfuse prn # HIV (human immunodeficiency virus infection) poorly controlled --> okay to continue hiv meds --> consider id # Bilateral nephrolithiasis --> appreciate renal recs # Dizziness and hematuria r/o kidney stones. --> ivf has been given # Hypomagnesemia -- replete with mag Greatly appreciate consultation! Subjective Date patient seen: Apr 28, 2018 Hematologic/Lymphatic: Reports: anemia Allergies: Coded Allergies: No Known Allergies (Unverified , 04/18/13) All Systems: reviewed and negative except above Subjective Biopsy perfromed 04/26. S/P blood tx, CBC today pending. Objective Last 24 Hour Vital Signs Date Time Temp Pulse Resp B/P (MAP) Pulse Ox O2 Delivery O2 Flow Rate FiO2 04/28/18 12:00 98.5 81 19 149/74 (99) 99 04/28/18 08:58 132/71 04/28/18 08:53 Room Air 04/28/18 08:00 97.6 69 19 132/71 (91) 100 04/28/18 04:00 98.2 69 18 148/78 (101) 99 04/28/18 00:00 99.0 80 19 134/76 (95) 100 04/27/18 21:00 Room Air 04/27/18 20:00 98.6 81 18 120/70 (87) 98 04/27/18 16:00 97.8 79 18 134/73 (93) 100 Intake and Output 04/27/18 04/28/18 19:00 07:00 Intake Total 720 ml 120 ml Balance 720 ml 120 ml Intake Oral 720 ml 120 ml # Voids 2 3 Height (Feet): 5 Height (Inches): 2.00 Weight (Pounds): 229 Antony Julian MD Apr 28, 2018 15:36
[2018-04-28 16:00] VITALS: BP 149/70
--- NOTE | 2018-04-28 16:13 | NUR ---
NURSE NOTES: Dr Julian made aware of the urine discoloration. observed dark black urine. order obtained. Addendum: 04/28/18 at 1925 by VINCENT VALENCIA LVN HAND-OFF: Report given to Sudhakar.
[2018-04-28 17:26] LABS: HEMATOCRIT 23.1 % (37.0-47.0); HEMOGLOBIN 7.5 G/DL (12.0-16.0); MEAN CORPUSCULAR VOLUME 89 FL (80-99); PLATELET COUNT 22 K/UL (150-450); RED BLOOD COUNT 2.59 M/UL (4.20-5.40); RED CELL DISTRIBUTION WIDTH 35.7 % (11.6-14.8)
--- NOTE | 2018-04-28 19:56 | NUR ---
NURSE NOTES: Patient in bed, awake, alert. No complaints of pain. No s/s respiratory distress noted. Bed low position, call light within reach, patient understands to use call light for assistance. Bedside commode within reach. Will continue to monitor.
[2018-04-28 20:19] VITALS: BP 130/59
[2018-04-28 21:54] LABS: APPEARANCE,URINE SLIGHTLY CLOUDY; BILIRUBIN, URINE 1+ (NEGATIVE); GLUCOSE, URINE (UA) NEGATIVE (NEGATIVE); KETONES,URINE 1+ (NEGATIVE); LEUKOCYTE ESTERASE ,URINE 2+ (NEGATIVE); NITRITE,URINE POSITIVE (NEGATIVE); PH,URINE 6.5 (4.5-8.0); PROTEIN,URINE 3+ (NEGATIVE); UROBILINOGEN,URINE 1 MG/DL (0.0-1.0)
[2018-04-28 21:58] LABS: COLOR,URINE BROWN
[2018-04-29 00:59] VITALS: BP 126/69
[2018-04-29 04:00] VITALS: BP 124/59
--- NOTE | 2018-04-29 06:44 | NUR ---
NURSE NOTES: Patient in bed, asleep, v/s stable.
--- NOTE | 2018-04-29 06:57 | NUR ---
HAND-OFF: Report given to VINCENT VALENCIA LVN.
[2018-04-29 07:57] VITALS: BP 148/75
--- NOTE | 2018-04-29 08:00 | NUR ---
NURSE NOTES: patient is A/A/Ox3, periods of forgetfulness. bsc for the patient due to dizziness upon arising to walk to the bathroom. instructed to use the call light for assistance. keep bed in lowest position. call light within reach. siderails are up for safety. will cont to monitor.
[2018-04-29 12:08] VITALS: BP 141/71
--- NOTE | 2018-04-29 15:16 | Pulmonology Progress Note ---
Assessment/Plan Assessment/Plan Pulmonary Progress Note Assessment/Plan Assessment/Plan IMPRESSION HIV Thrombocytopenia itchyness anemia, HB 7.5 today PLAN Hematology following no other changes for now await heme recommendations BM result pending impression, plan, and exam edited and reviewed in detail care discussed with RN Subjective Allergies: Coded Allergies: No Known Allergies (Unverified , 04/18/13) Subjective findings noted d/w heme awaiting clearance Objective Vital Signs Noted Laboratory Tests 04/27/18 09:15: White Blood Count 9.6, Red Blood Count 2.67L, Hemoglobin 7.8#L, Hematocrit 22.5L , Mean Corpuscular Volume 84, Mean Corpuscular Hemoglobin 29.4, Mean Corpuscular Hemoglobin Concent 34.9, Red Cell Distribution Width 24.5H, Platelet Count 20L, Mean Platelet Volume 13.2H, Neutrophils (%) (Auto) , Lymphocytes (%) (Auto) , Monocytes (%) (Auto) , Eosinophils (%) (Auto) , Basophils (%) (Auto) , Differential Total Cells Counted 100, Neutrophils % ( Manual) 62, Lymphocytes % (Manual) 26, Monocytes % (Manual) 11H, Eosinophils % ( Manual) 0, Basophils % (Manual) 0, Metamyelocytes % 1H, Band Neutrophils 0, Nucleated Red Blood Cells 37, Platelet Estimate DecreasedL, Platelet Morphology Normal, Polychromasia 2+, Hypochromasia 2+, Poikilocytosis 1+, Anisocytosis 3+, Spherocytes 2+, Schistocytes 1+, Reticulocyte Count 8.0H, Hemoglobin A [Pending] , Hemoglobin A2 [Pending], Hemoglobin C [Pending], Hemoglobin F () [Pending ], Hemoglobin S [Pending], Variant Hemoglobin [Pending], Hemoglobin Electrophoresis Interp [Pending], Hemoglobin Interpretation [Pending], Hemoglobin Solubility [Pending], Haptoglobin [Pending], Prothrombin Time 11.4, Prothromb Time International Ratio 1.1, Total Bilirubin 2.1H, Direct Bilirubin 0.4H, Lactate Dehydrogenase 1780H, Rheumatoid Factor Screen [Pending], Anti- Nuclear Antibody Screen [Pending] Height (Feet): 5 Height (Inches): 2.00 Weight (Pounds): 229 Objective WDWN NAD clear breath sounds bilaterally without rhonchi or wheeze [id number] without MRG NABS nontender no HSM no CCE nonfocal Subjective ROS Limited/Unobtainable: No Allergies: Coded Allergies: No Known Allergies (Unverified , 04/18/13) Objective Last 24 Hour Vital Signs Date Time Temp Pulse Resp B/P (MAP) Pulse Ox O2 Delivery O2 Flow Rate FiO2 04/29/18 12:08 97.8 80 20 141/71 (94) 100 04/29/18 08:28 148/75 04/29/18 08:02 Room Air 04/29/18 07:57 97.5 82 20 148/75 (99) 98 04/29/18 04:00 97.9 74 18 124/59 (80) 100 04/29/18 00:59 98.0 78 20 126/69 (88) 100 04/28/18 22:09 Room Air 04/28/18 20:19 99.4 75 18 130/59 (82) 98 04/28/18 16:00 98.8 75 18 149/70 (96) 100 Intake and Output 04/28/18 04/29/18 19:00 07:00 Intake Total 100 ml 120 ml Balance 100 ml 120 ml Intake Oral 100 ml 120 ml # Voids 3 Laboratory Tests 04/28/18 16:50: White Blood Count 10.0, Red Blood Count 2.59L, Hemoglobin 7.5L, Hematocrit 23.1L , Mean Corpuscular Volume 89, Mean Corpuscular Hemoglobin 28.9, Mean Corpuscular Hemoglobin Concent 32.5, Red Cell Distribution Width 35.7H, Platelet Count 22L, Mean Platelet Volume 15.2H, Neutrophils (%) (Auto) , Lymphocytes (%) (Auto) , Monocytes (%) (Auto) , Eosinophils (%) (Auto) , Basophils (%) (Auto) , Differential Total Cells Counted 100, Neutrophils % ( Manual) 66, Lymphocytes % (Manual) 23, Monocytes % (Manual) 9, Eosinophils % ( Manual) 0, Basophils % (Manual) 0, Band Neutrophils 2, Nucleated Red Blood Cells 79, Platelet Estimate DecreasedL, Platelet Morphology Normal, Polychromasia 2+, Anisocytosis 3+, Schistocytes 3+ 04/28/18 21:29: Urine Color Brown, Urine Appearance Slightly cloudy, Urine pH 6.5, Urine Specific [place] 1.010, Urine Protein 3+H, Urine Glucose (UA) Negative, Urine Ketones 1+H, Urine Blood 5+H, Urine Nitrite PositiveH, Urine Bilirubin 1+H, Urine Ictotest Negative, Urine Urobilinogen 1H, Urine Leukocyte Esterase 2+H, Urine RBC TntcH, Urine WBC 0-2, Urine Squamous Epithelial Cells Occasional, Urine Bacteria Few Current Medications Medications (Trade) Dose Ordered Sig/Ellen Route PRN Reason Start Time Stop Time Status Last Admin Dose Admin Diphenhydramine HCl (Benadryl) 25 mg Q6H PRN ORAL Itching 04/22/18 19:15 05/22/18 19:14 04/23/18 20:07 Famotidine (Pepcid) 20 mg BID ORAL 04/23/18 09:00 05/23/18 08:59 04/29/18 08:28 Gabapentin (Neurontin) 300 mg THREE TIMES A DAY ORAL 04/23/18 09:00 05/23/18 08:59 04/29/18 13:54 Iopamidol (Isovue-300 100ml) 100 ml NOW PRN INJ Radiology Procedure 04/22/18 11:45 Irbesartan (Avapro) 75 mg DAILY ORAL 04/23/18 09:00 05/23/18 08:59 04/29/18 08:28 Levothyroxine Sodium (Synthroid) 112 mcg ACBREAKFAST ORAL 04/23/18 06:30 05/23/18 06:29 04/29/18 05:34 Prednisone (predniSONE) 20 mg BID ORAL 04/23/18 09:00 05/23/18 08:59 04/29/18 08:28 Zolpidem Tartrate (Ambien) 5 mg HSPRN PRN ORAL Insomnia 04/22/18 22:15 04/29/18 22:14 04/22/18 22:23 Romain Kerr MD Apr 29, 2018 15:16
[2018-04-29 16:00] VITALS: BP 123/72
[2018-04-29] MEDS: Docusate 100mg cap ORAL SCH (17:45)
[2018-04-29] MEDS: Lactulose 20gm/30ml UDC ORAL SCH (17:45)
--- NOTE | 2018-04-29 18:58 | NUR ---
HAND-OFF: Report given to oxana.
--- NOTE | 2018-04-29 19:30 | NUR ---
NURSE NOTES: Patient in bed, awake, alert. No complaints of pain at this time. No s/s distress noted. Bed low position, call light within reach. Reeducated patient on using call light for assistance. Bedside commode within reach. Will continue to monitor. Addendum: 04/30/18 at 0235 by DELVIN LUKE RN RN Patient has periods of forgetfulness.
[2018-04-29 20:00] VITALS: BP 133/72
--- NOTE | 2018-04-29 20:27 | General Progress Note ---
Assessment/Plan Assessment/Plan # Severe thrombocytopenia - is most likely related to HIV poorly controlled, but will need to r/o malignancy as well as well as infection --> r/o underyling infection, imaging has been ordered --> transfuse as needed to keep plt >10k --> trend plt count 11-->14k-->15k-->20k-->22k --> bone marrow biopsy to r/o underlying lymphoma v malignancy - performed 04/26 , awaiting path report --> transfuse if plt less than 10k and hgb less than 7 # Anemia of chronic disease, ferritin is elevated, tibc low --> w/u has been reviewed, some hemolysis mild is noted --> LDH elevated 1322 potentially poorly controlled hiv related --> Hgb goal >7, transfuse prn # HIV (human immunodeficiency virus infection) poorly controlled --> continue hiv meds --> consider id # Bilateral nephrolithiasis --> appreciate renal recs # Dizziness and hematuria r/o kidney stones. --> ivf has been given # Hypomagnesemia -- replete with mag Greatly appreciate consultation! Subjective Constitutional: Denies: no symptoms, chills, diaphoresis, fever, malaise, weakness, other HEENT: Denies: no symptoms, eye pain, blurred vision, tearing, double vision, ear pain, ear discharge, nose pain, nose congestion, throat pain, throat swelling, mouth pain, mouth swelling, other Cardiovascular: Denies: no symptoms, chest pain, edema, irregular heart rate, lightheadedness, palpitations, syncope, other Respiratory: Denies: no symptoms, cough, orthopnea, shortness of breath, SOB with excertion, SOB at rest, sputum, stridor, wheezing, other Gastrointestinal/Abdominal: Denies: no symptoms, abdomen distended, abdominal pain, black stools, tarry stools, blood in stool, constipated, diarrhea, difficulty swallowing, nausea, poor appetite, poor fluid intake, rectal bleeding , vomiting, other Genitourinary: Denies: no symptoms, burning, discharge, frequency, flank pain, hematuria, incontinence, pain, urgency, other Neurologic/Psychiatric: Denies: no symptoms, anxiety, depressed, emotional problems, headache, numbness, paresthesia, pre-existing deficit, seizure, tingling, tremors, weakness, other Endocrine: Denies: no symptoms, excessive sweating, flushing, intolerance to cold, intolerance to heat, increased hunger, increased thirst, increased urine, unexplained weight gain, unexplained weight loss, other Hematologic/Lymphatic: Denies: no symptoms, anemia, easy bleeding, easy bruising, other Allergies: Coded Allergies: No Known Allergies (Unverified , 04/18/13) Subjective Biopsy perfromed 04/26. S/P blood tx, CBC reviewed Objective Last 24 Hour Vital Signs Date Time Temp Pulse Resp B/P (MAP) Pulse Ox O2 Delivery O2 Flow Rate FiO2 04/29/18 16:00 97.0 91 20 123/72 (89) 99 04/29/18 12:08 97.8 80 20 141/71 (94) 100 04/29/18 08:28 148/75 04/29/18 08:02 Room Air 04/29/18 07:57 97.5 82 20 148/75 (99) 98 04/29/18 04:00 97.9 74 18 124/59 (80) 100 04/29/18 00:59 98.0 78 20 126/69 (88) 100 04/28/18 22:09 Room Air Intake and Output 04/28/18 04/29/18 19:00 07:00 Intake Total 100 ml 120 ml Balance 100 ml 120 ml Intake Oral 100 ml 120 ml # Voids 3 Laboratory Tests 04/28/18 21:29: Urine Color Brown, Urine Appearance Slightly cloudy, Urine pH 6.5, Urine Specific [place] 1.010, Urine Protein 3+H, Urine Glucose (UA) Negative, Urine Ketones 1+H, Urine Blood 5+H, Urine Nitrite PositiveH, Urine Bilirubin 1+H, Urine Ictotest Negative, Urine Urobilinogen 1H, Urine Leukocyte Esterase 2+H, Urine RBC TntcH, Urine WBC 0-2, Urine Squamous Epithelial Cells Occasional, Urine Bacteria Few Height (Feet): 5 Height (Inches): 2.00 Weight (Pounds): 229 General Appearance: alert EENT: TMs normal Neck: normal inspection Cardiovascular: regular rhythm Respiratory/Chest: no respiratory distress Abdomen: no organomegaly Extremities: non-tender Edema: mild edema Skin: warm/dry Antony Julian MD Apr 29, 2018 20:27
[2018-04-30 00:16] VITALS: BP 126/76
--- NOTE | 2018-04-30 04:30 | NUR ---
NURSE NOTES: Patient in bed, asleep, no distress noted.
[2018-04-30 04:39] VITALS: BP 135/82
--- NOTE | 2018-04-30 07:25 | NUR ---
HAND-OFF: Report given to JACEK CORNELL RN.
--- NOTE | 2018-04-30 07:34 | NUR ---
NURSE NOTES: Received pt from [facility], pt was resting comfortably, no acute distress, or pain, call light w/in reach.
[2018-04-30 08:00] VITALS: BP 134/75
[2018-04-30] MEDS: Lactulose 20gm/30ml UDC ORAL SCH ×3 (09:37→19:06)
[2018-04-30] MEDS: Docusate 100mg cap ORAL SCH ×2 (09:37→18:00)
--- NOTE | 2018-04-30 10:20 | NUR ---
NURSE NOTES: Pt was changed condition, pt has slurred speech, confused. unable to squeeze right side of hand. checked v/s was w/in normal range, blood sugar was 223. called [facility] called Dr. Gunn covering Dr. Almeida. order was received CT of head and Transfer to Tele.
--- NOTE | 2018-04-30 11:17 | Diagnostic Imaging Report ---
Indications: Slurred speech Technique: Spiral acquisitions obtained through the brain. Angled axial and coronal 5 x 5 mm slices were reconstructed. Total dose length product 1365.42 mGycm. CTDI vol(s) 70.38 mGy. Dose reduction achieved using automated exposure control Comparison: 04/22/2018 Findings: No acute intracranial hemorrhage or edema. No mass effect nor midline shift. Normal-sized ventricles and extra axial CSF spaces. Normal chung-white differentiation. Intact calvarium. Impression: Negative The CT scanner at [facility] is accredited by the [employer] and the scans are performed using protocols designed to limit radiation exposure to as low as reasonably achievable to attain images of sufficient resolution adequate for diagnostic evaluation.
--- NOTE | 2018-04-30 11:26 | NUR ---
INSURANCE ALL CLINICALS AND REVIEWS FAXED TO: [employer] NCM:ALIZE P:[phone] F:[phone] TRK#[id number]
--- NOTE | 2018-04-30 11:50 | NUR ---
NURSE NOTES: Received call back from MD Ulrich stating that [facility] to please advise MD Kerr of his statement. Will call MD Kerr.
[2018-04-30 11:51] LABS: ANION GAP 9 mmol/L (5-15); BLOOD UREA NITROGEN 26 mg/dL (7-18); CALCIUM 8.6 MG/DL (8.5-10.1); CARBON DIOXIDE 26 MMOL/L (21-32); CHLORIDE 104 MMOL/L (98-107); POTASSIUM 3.5 MMOL/L (3.5-5.1); SODIUM 139 MMOL/L (136-145)
[2018-04-30 11:54] LABS: AMMONIA 21 umol/L (11-32)
[2018-04-30 11:56] LABS: HEMATOCRIT 20.4 % (37.0-47.0); MEAN CORPUSCULAR VOLUME 89 FL (80-99); PLATELET COUNT 27 K/UL (150-450); RED BLOOD COUNT 2.29 M/UL (4.20-5.40); RED CELL DISTRIBUTION WIDTH 40.4 % (11.6-14.8)
[2018-04-30 11:57] LABS: HEMOGLOBIN 6.8 G/DL (12.0-16.0)
[2018-04-30 12:00] VITALS: BP 139/81
--- NOTE | 2018-04-30 12:27 | NUR ---
NURSE NOTES: MD Kerr was advised of CT results and lab draws. He was also advised that MD Ulrich stated he could nt see the patient. A message was left for MD Felix for consultation and awaiting call back.
--- NOTE | 2018-04-30 12:33 | NUR ---
NURSE NOTES: MD Felix returned call and stated that he could not take patient on for a few days and requested MD Kerr to find another neurologist. Will attempt to call MD Marquez. Addendum: 04/30/18 at 1245 by DI BENITEZ RN RN Message left for MD Thakkar.
--- NOTE | 2018-04-30 12:56 | NUR ---
NURSE NOTES: MD Whatley called back as she is covering MD Ariane bernard on vacaction and cannot take a new patient and will not be able to see the patient.
--- NOTE | 2018-04-30 13:10 | General Progress Note ---
Assessment/Plan Assessment/Plan # Severe thrombocytopenia - is most likely related to HIV poorly controlled, but will need to r/o malignancy as well as well as infection --> bone marrow biopsy to r/o underlying lymphoma v malignancy - performed 04/26 , awaiting path report --> imaging has been reviewed --> cultures have been reviewed --> transfuse as needed to keep plt >10k --> trend plt count 11-->14k-->15k-->20k-->22k-->27k --> transfuse if plt less than 10k and hgb less than 7 # Anemia of chronic disease, ferritin is elevated, tibc low --> w/u has been reviewed, some hemolysis mild is noted --> LDH elevated 1322-->1708 --> trend 7.5--> 6.8 --> Hgb goal >7, transfuse prn # Leukocytosis - potentially related to steriods --> ID service following # HIV (human immunodeficiency virus infection) poorly controlled --> continue hiv meds --> appreciate id consult # Bilateral nephrolithiasis --> appreciate renal recs # Dizziness and hematuria r/o kidney stones. --> ivf has been given # Hypomagnesemia -- replete with mag Greatly appreciate consultation! Subjective Constitutional: Denies: no symptoms, chills, diaphoresis, fever, malaise, weakness, other HEENT: Denies: no symptoms, eye pain, blurred vision, tearing, double vision, ear pain, ear discharge, nose pain, nose congestion, throat pain, throat swelling, mouth pain, mouth swelling, other Cardiovascular: Denies: no symptoms, chest pain, edema, irregular heart rate, lightheadedness, palpitations, syncope, other Respiratory: Denies: no symptoms, cough, orthopnea, shortness of breath, SOB with excertion, SOB at rest, sputum, stridor, wheezing, other Gastrointestinal/Abdominal: Denies: no symptoms, abdomen distended, abdominal pain, black stools, tarry stools, blood in stool, constipated, diarrhea, difficulty swallowing, nausea, poor appetite, poor fluid intake, rectal bleeding , vomiting, other Genitourinary: Denies: no symptoms, burning, discharge, frequency, flank pain, hematuria, incontinence, pain, urgency, other Neurologic/Psychiatric: Denies: no symptoms, anxiety, depressed, emotional problems, headache, numbness, paresthesia, pre-existing deficit, seizure, tingling, tremors, weakness, other Endocrine: Denies: no symptoms, excessive sweating, flushing, intolerance to cold, intolerance to heat, increased hunger, increased thirst, increased urine, unexplained weight gain, unexplained weight loss, other Allergies: Coded Allergies: No Known Allergies (Unverified , 04/18/13) Subjective Biopsy perfromed 04/26. S/P blood tx, CBC reviewed 04/30: awaiting biopsy results, pending Objective Last 24 Hour Vital Signs Date Time Temp Pulse Resp B/P (MAP) Pulse Ox O2 Delivery O2 Flow Rate FiO2 04/30/18 09:38 139/75 04/30/18 07:53 Room Air 04/30/18 04:39 97.4 84 19 135/82 (99) 100 04/30/18 00:16 97.8 86 20 126/76 (93) 99 04/29/18 21:35 Room Air 04/29/18 20:00 98.4 83 20 133/72 (92) 98 04/29/18 16:00 97.0 91 20 123/72 (89) 99 Intake and Output 04/29/18 04/30/18 18:59 06:59 Intake Total 480 ml 400 ml Output Total 800 ml Balance -320 ml 400 ml Intake Oral 480 ml 400 ml Output Urine Total 800 ml # Voids 3 1 Laboratory Tests 04/30/18 11:35: White Blood Count 12.0H, Red Blood Count 2.29L, Hemoglobin 6.8*L, Hematocrit 20.4L, Mean Corpuscular Volume 89, Mean Corpuscular Hemoglobin 29.9, Mean Corpuscular Hemoglobin Concent 33.6, Red Cell Distribution Width 40.4H, Platelet Count 27L, Mean Platelet Volume , Neutrophils (%) (Auto) , Lymphocytes (%) (Auto) , Monocytes (%) (Auto) , Eosinophils (%) (Auto) , Basophils (%) (Auto ) , Differential Total Cells Counted 100, Neutrophils % (Manual) 55, Lymphocytes % (Manual) 28, Monocytes % (Manual) 9, Eosinophils % (Manual) 1, Basophils % (Manual) 1, Band Neutrophils 6, Nucleated Red Blood Cells 47, Platelet Estimate DecreasedL, Platelet Morphology Normal, Polychromasia 3+, Hypochromasia 3+, Anisocytosis 3+, Schistocytes 3+, Reticulocyte Count [Pending] , Haptoglobin [Pending], Sodium Level 139, Potassium Level 3.5, Chloride Level 104, Carbon Dioxide Level 26, Anion Gap 9, Blood Urea Nitrogen 26H, Creatinine 1.0, Estimat Glomerular Filtration Rate > 60, Glucose Level 194H, Calcium Level 8.6, Total Bilirubin [Pending], Direct Bilirubin [Pending], Ammonia 21, Lactate Dehydrogenase [Pending] 04/30/18 12:45: Prothrombin Time [Pending], Prothromb Time International Ratio [Pending], Fibrinogen [Pending] Height (Feet): 5 Height (Inches): 2.00 Weight (Pounds): 229 Objective General Appearance: alert EENT: TMs normal Neck: normal inspection Cardiovascular: regular rhythm Respiratory/Chest: no respiratory distress Abdomen: no organomegaly Extremities: non-tender Edema: mild edema Skin: warm/dry Antony Julian MD Apr 30, 2018 13:10
[2018-04-30 13:16] LABS: BILIRUBIN,DIRECT 0.4 MG/DL (0.0-0.3); BILIRUBIN,TOTAL 2.2 MG/DL (0.2-1.0)
[2018-04-30 13:27] LABS: INR 1.1 (0.9-1.1)
--- NOTE | 2018-04-30 13:58 | NUR ---
NURSE NOTES: Transfer pt to tele #[id number], report given to Saba.
--- NOTE | 2018-04-30 14:00 | NUR ---
NURSE NOTES: Received patient from [facility]. Patient is alert and oriented to name and time. Patient could not tell where she is or why she came here. Patient is verbal. Belongings checked, list updated. IV site is intact, patent. Call light within reach. No sign of acute distress. VSS. Addendum: 04/30/18 at 2033 by RICARDO CHINO RN RN Dressing on the bone marrow site on the back/iliac site checked, dressing dry, intact.
--- NOTE | 2018-04-30 15:39 | Pulmonology Progress Note ---
Assessment/Plan Assessment/Plan Pulmonary Progress Note Assessment/Plan Assessment/Plan IMPRESSION HIV Thrombocytopenia itchyness anemia, more altered today [facility] called, CT head negative PLAN Hematology following, for TFN today no other changes for now await heme recommendations BM result pending impression, plan, and exam edited and reviewed in detail care discussed with RN Subjective Allergies: Coded Allergies: No Known Allergies (Unverified , 04/18/13) Subjective findings noted d/w heme awaiting clearance Objective Vital Signs Noted Laboratory Tests 04/27/18 09:15: White Blood Count 9.6, Red Blood Count 2.67L, Hemoglobin 7.8#L, Hematocrit 22.5L , Mean Corpuscular Volume 84, Mean Corpuscular Hemoglobin 29.4, Mean Corpuscular Hemoglobin Concent 34.9, Red Cell Distribution Width 24.5H, Platelet Count 20L, Mean Platelet Volume 13.2H, Neutrophils (%) (Auto) , Lymphocytes (%) (Auto) , Monocytes (%) (Auto) , Eosinophils (%) (Auto) , Basophils (%) (Auto) , Differential Total Cells Counted 100, Neutrophils % ( Manual) 62, Lymphocytes % (Manual) 26, Monocytes % (Manual) 11H, Eosinophils % ( Manual) 0, Basophils % (Manual) 0, Metamyelocytes % 1H, Band Neutrophils 0, Nucleated Red Blood Cells 37, Platelet Estimate DecreasedL, Platelet Morphology Normal, Polychromasia 2+, Hypochromasia 2+, Poikilocytosis 1+, Anisocytosis 3+, Spherocytes 2+, Schistocytes 1+, Reticulocyte Count 8.0H, Hemoglobin A [Pending] , Hemoglobin A2 [Pending], Hemoglobin C [Pending], Hemoglobin F () [Pending ], Hemoglobin S [Pending], Variant Hemoglobin [Pending], Hemoglobin Electrophoresis Interp [Pending], Hemoglobin Interpretation [Pending], Hemoglobin Solubility [Pending], Haptoglobin [Pending], Prothrombin Time 11.4, Prothromb Time International Ratio 1.1, Total Bilirubin 2.1H, Direct Bilirubin 0.4H, Lactate Dehydrogenase 1780H, Rheumatoid Factor Screen [Pending], Anti- Nuclear Antibody Screen [Pending] Height (Feet): 5 Height (Inches): 2.00 Weight (Pounds): 229 Objective WDWN NAD clear breath sounds bilaterally without rhonchi or wheeze [id number] without MRG NABS nontender no HSM no CCE nonfocal Subjective ROS Limited/Unobtainable: No Allergies: Coded Allergies: No Known Allergies (Unverified , 04/18/13) Objective Last 24 Hour Vital Signs Date Time Temp Pulse Resp B/P (MAP) Pulse Ox O2 Delivery O2 Flow Rate FiO2 04/30/18 12:00 97.2 94 18 139/81 (100) 100 04/30/18 09:38 139/75 04/30/18 08:00 97.7 83 18 134/75 (94) 100 04/30/18 07:53 Room Air 04/30/18 04:39 97.4 84 19 135/82 (99) 100 04/30/18 00:16 97.8 86 20 126/76 (93) 99 04/29/18 21:35 Room Air 04/29/18 20:00 98.4 83 20 133/72 (92) 98 04/29/18 16:00 97.0 91 20 123/72 (89) 99 Intake and Output 04/29/18 04/30/18 18:59 06:59 Intake Total 480 ml 400 ml Output Total 800 ml Balance -320 ml 400 ml Intake Oral 480 ml 400 ml Output Urine Total 800 ml # Voids 3 1 Laboratory Tests 04/30/18 11:35: White Blood Count 12.0H, Red Blood Count 2.29L, Hemoglobin 6.8*L, Hematocrit 20.4L, Mean Corpuscular Volume 89, Mean Corpuscular Hemoglobin 29.9, Mean Corpuscular Hemoglobin Concent 33.6, Red Cell Distribution Width 40.4H, Platelet Count 27L, Mean Platelet Volume , Neutrophils (%) (Auto) , Lymphocytes (%) (Auto) , Monocytes (%) (Auto) , Eosinophils (%) (Auto) , Basophils (%) (Auto ) , Differential Total Cells Counted 100, Neutrophils % (Manual) 55, Lymphocytes % (Manual) 28, Monocytes % (Manual) 9, Eosinophils % (Manual) 1, Basophils % (Manual) 1, Band Neutrophils 6, Nucleated Red Blood Cells 47, Platelet Estimate DecreasedL, Platelet Morphology Normal, Polychromasia 3+, Hypochromasia 3+, Anisocytosis 3+, Schistocytes 3+, Reticulocyte Count 17.6H, Haptoglobin [Pending], Sodium Level 139, Potassium Level 3.5, Chloride Level 104 , Carbon Dioxide Level 26, Anion Gap 9, Blood Urea Nitrogen 26H, Creatinine 1.0 , Estimat Glomerular Filtration Rate > 60, Glucose Level 194H, Calcium Level 8.6 , Total Bilirubin 2.2H, Direct Bilirubin 0.4H, Ammonia 21, Lactate Dehydrogenase 3404H 04/30/18 12:45: Prothrombin Time 11.4, Prothromb Time International Ratio 1.1, Fibrinogen 154L Current Medications Medications (Trade) Dose Ordered Sig/Ellen Route PRN Reason Start Time Stop Time Status Last Admin Dose Admin Diphenhydramine HCl (Benadryl) 25 mg Q6H PRN ORAL Itching 04/30/18 14:06 05/22/18 14:05 Docusate Sodium (Colace) 100 mg TWICE A DAY ORAL 04/30/18 18:00 05/29/18 17:59 Famotidine (Pepcid) 20 mg BID ORAL 04/30/18 18:00 05/23/18 08:59 Gabapentin (Neurontin) 300 mg THREE TIMES A DAY ORAL 04/30/18 18:00 05/23/18 08:59 Irbesartan (Avapro) 75 mg DAILY ORAL 05/01/18 09:00 05/23/18 08:59 Lactulose (Cephulac) 30 gm THREE TIMES A DAY ORAL 04/30/18 18:00 05/29/18 17:59 Levothyroxine Sodium (Synthroid) 112 mcg ACBREAKFAST ORAL 05/01/18 06:30 05/23/18 06:29 Prednisone (predniSONE) 20 mg BID ORAL 04/30/18 18:00 05/23/18 08:59 Romain Kerr MD Apr 30, 2018 15:39
--- NOTE | 2018-04-30 15:45 | NUR ---
NURSE NOTES: Patient vomited x1 on the floor, yellowish liquid. Dr. Kerr notified, new orders received. Patient is a/o x3, patient states that she is not feeling nauseous anymore, now that she vomited.
[2018-04-30 16:00] VITALS: BP 125/77
--- NOTE | 2018-04-30 16:20 | NUR ---
NURSE NOTES: Blood transfusion started at 1605 vitals stable: BP 125/77, temp 97.4F oral, HR 96. Family at bedside. Patient is now A/O X3, with periods of forgetfulness.
--- NOTE | 2018-04-30 16:20 | NUR ---
NURSE NOTES: Contacted and notified Dr. Kerr that all neurologists contacted for consult to see patient are currently unavailable for consult. Dr. Ulrich, Dr. Felix, Dr. Grissom unavailable. Dr. Gaviria and Dr. Brannon also currently unavailable for neurology consult. Dr. Kerr acknowledged and stated "will see patient soon." Noted. Will continue to monitor patient.
--- NOTE | 2018-04-30 17:01 | NUR ---
NURSE NOTES: Dr. Ulrich, neurologist, seen and examined patient at bedside. Dr. Kerr aware. Will continue to monitor patient.
--- NOTE | 2018-04-30 17:18 | Consultation ---
Consult Note Consult Note NEUROLOGY CONSULTATION: Full note dictated #[id number] 57 y/o, RH, BF with PH of HTN and HIV disease. In the 1st week of April developed a Flu. She then started to have dizziness and episodes like she was going to faint. She was hospitalized on 04/22/18. She was found to be anemic and thrombocytopenic. She was function relatively well when this morning she suddenly became unresponsive. Her HB had dropped to 6.[address] was done and was benign. She is now being transfused with PRBCs and is improving. ON EXAM: Problems with orientation. Memory VSF, HCF, Language. No focal findings. Globally diminished DTRs. IMPRESSION: Anemic encephalopathy. REC: W/U for encephalopathy. EEG Correct Hb to > 10 G. Observe Erick Ulrich M.D., M.S.P.H. Erick Ulrich MD Apr 30, 2018 17:18
--- NOTE | 2018-04-30 18:00 | NUR ---
NURSE NOTES: Patient's daughter and sister voiced concerns of patient's care and voiced would like patient to be transferred to [facility]. Dr. Kerr covering for Dr. Almeida notified of situation. Dr. Kerr called nurse station and ordered patient to be transferred to [facility] when bed available. Dr. Kerr spoke with patient's daughter via the telephone. Order entered and noted. will continue to monitor patient.
--- NOTE | 2018-04-30 18:45 | NUR ---
NURSE NOTES: Blood transfusion finished. Patient tolerated without any complication. BP 114/74, Temp 97.9F oral, HR 96.
--- NOTE | 2018-04-30 18:53 | NUR ---
NURSE NOTES: patient had a BM x3, incontinent, patient taking lactulose. unable to collect stool sample. after bm, patient voided, urine sample collected, sent down. Addendum: 04/30/18 at 2031 by RICARDO CHINO RN RN Because of lactulose, patient had diarrhea. Offered bedpan at first, patient used bedpan. For the Second BM, patient had BM on the pad, ANDRES Cedeño was present to clean patient. Kept her dry.
[2018-04-30 20:00] VITALS: BP 132/87
--- NOTE | 2018-04-30 20:00 | Consultation ---
DATE OF CONSULTATION: 04/30/2018 NEUROLOGY CONSULTATION CONSULTING PHYSICIAN: Erick Ulrich M.D. REQUESTING PHYSICIAN: Romain Kerr M.D. HISTORY: Ms. Zoraida Guzman is a 57-year-old, right-handed, black lady, who does have past history of hypertension and HIV disease. In the first week of April, she developed flu-like syndrome. She then started to have dizziness, episodes like she was going to faint, and unsteadiness on her feet. The problem got progressively worse and as a result of that, she was hospitalized on 04/22/2018. On being hospitalized, she was found to be anemic and thrombocytopenic. She was apparently given some blood transfusions and did improve. She was functioning relatively well until the morning of 04/30/2018, when she suddenly became poorly responsive. When her CBC was drawn, her hemoglobin had dropped to 6.[address] scan of the brain was done which was benign. She was then transfused with packed red blood cells and at this point in time is improving. She however is not back to her normal self. PAST HISTORY: Significant for hypertension and HIV disease. FAMILY HISTORY: Nothing significant as per the chart. PERSONAL HISTORY: Home: She lives alone. 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 Habits: She used to smoke until approximately 2 weeks ago. She used to have a rare alcoholic drink. There is no history of any illicit drug use. PRESENT MEDICATIONS: Include irbesartan, Synthroid, DSS, Pepcid, Neurontin, lactulose, prednisone, Zofran, and Benadryl. PHYSICAL EXAMINATION: GENERAL: She is a well-developed, well-nourished, slightly obese black lady, lying in bed, in no acute distress. VITAL SIGNS: Pulse 93/minute, blood pressure 125/77 mmHg, respirations 18/minute, and temperature 97.4 degrees Fahrenheit. HEAD: Normocephalic and atraumatic. EENT: Examination benign. NECK: No neck rigidity was observed. NEUROLOGIC EXAMINATION: MENTAL STATUS EXAMINATION: She was awake but not completely alert. She was oriented to self, [facility], but did not know the date, month, or year. She was able to recall 3/3 words immediately, but could not remember them in 1 minute and 3 minutes. She knew that Kendall was president, but could not remember presidents prior to that. Her mathematical skills were impaired. Her visuospatial function was also impaired. SPEECH: She had no dysarthria. LANGUAGE: She had word-finding problems during spontaneous speech and at times also had some problems with comprehension. CRANIAL NERVE EXAMINATION: II: The visual king were intact on confrontation testing. III, IV & : External ocular movements were full and the pupils 3 mm in diameter, equal, round, regular, and reactive to light. V: She had normal facial sensations, and the temporales, masseters, and pterygoids functioned normally. VII: She had normal facial expressions and no facial asymmetry. VIII: She was able to hear well bilaterally and had no nystagmus. IX: The palate moved symmetrically on phonation. X: She had no hoarseness of voice. XI: The sternocleidomastoids and trapezii functioned normally. XII: The tongue was in the midline without any fasciculations or atrophy. MOTOR SYSTEM: The tone was normal in all four extremities. Examination of muscle mass revealed no focal wasting. Examination of power revealed G 5/5 power in all muscle groups. SENSORY EXAMINATION: She had intact sensations to light touch. REFLEXES: Trace+ and bilaterally symmetrical at the biceps, triceps, brachioradialis, and knees; zero at both ankles. The plantar responses were flexor bilaterally. COORDINATION: She performed well on [id number] testing. STANCE & GAIT: Could not be tested. DIAGNOSTIC IMPRESSION: 1. Ms. Zoraida Guzman is a 57-year-old, right-handed, black lady, with past history of hypertension and HIV disease, who in the first week of April developed flu-like syndrome. This was followed by dizziness, lightheadedness, and a sensation that she may faint. She was hospitalized for these symptoms on 04/22/2018, and was found to be significantly anemic and thrombocytopenic. She was treated with blood transfusions and improved. Then on the morning of 04/30/18, she suddenly became unresponsive. Her hemoglobin had dropped to 6.8 G. Since then, she has been transfused with packed red blood cells and is now improving. 2. On neurological examination, at this time, she does have problems with orientation, recent and remote memory, visuospatial function, higher cognitive function, and language. She however does not demonstrate any focal or lateralizing neurological findings. Her deep tendon reflexes are globally diminished. 3. The CT scan of the brain without contrast is benign. 4. Her latest laboratory data revealed that her WBC count is elevated to 12,000, her hemoglobin has dropped to 6.8 G, and her platelet count is down at 27,000. Her chemistry panel reveals that BUN is elevated to 26 and her glucose is elevated at 194. Her liver function tests from when she came in reveal that her total bilirubin is elevated at 1.7 and AST is elevated at 68. Her B12 is normal at 975, folate is normal at 13.8, and TSH is normal at 3.43. Her ammonia is also normal at 21. 5. The patient's history, neurological examination, laboratory data, and imaging studies are most compatible with an encephalopathy most probably related to her significant anemia and possibly her infectious process. RECOMMENDATIONS: 1. Agree with management thus far. 2. Would correct the patient's hemoglobin to greater than 10 G. 3. Complete workup for encephalopathy with an addition to the laboratory tests already done, vitamin D level, RPR, glycohemoglobin, and Westergren sedimentation rate. 4. An EEG will be ordered to evaluate the patient for the degree and type of encephalopathy. 5. The patient will be observed closely and depending on how she fares over the next day or so, further recommendations will be given. Thank you for entrusting me with the care of Ms. Barakat. I shall follow her with you. Erick Ulrich M.D., M.S.P.H. : Sundeep JOB#: [id number] [place]
--- NOTE | 2018-04-30 20:30 | NUR ---
HAND-OFF: Report given to Nestor VANESSA. Patient stable in bed. No sign of acute distress. Addendum: 04/30/18 at 2032 by RICARDO CHINO RN RN Endorsed Nestor VANESSA to collect stool sample. Also endorsed about the bone marrow site dressing.
--- NOTE | 2018-04-30 20:35 | NUR ---
NURSE NOTES: Received report from Saba VANESSA. Pt was resting in the bed w.o any acute distress. Family member is at bedside. rails up x 3 and call light is within reach. AO x3-4. Will continue to follow the plan of care.
[2018-04-30 20:55] LABS: APPEARANCE,URINE TURBID; BILIRUBIN, URINE 1+ (NEGATIVE); COLOR,URINE BROWN; GLUCOSE, URINE (UA) 1+ (NEGATIVE); KETONES,URINE 1+ (NEGATIVE); LEUKOCYTE ESTERASE ,URINE 2+ (NEGATIVE); NITRITE,URINE POSITIVE (NEGATIVE); PH,URINE 5 (4.5-8.0); PROTEIN,URINE 3+ (NEGATIVE); UROBILINOGEN,URINE 4 MG/DL (0.0-1.0)
[2018-05-01] VITALS: BP 132/74
[2018-05-01 04:00] VITALS: BP 135/81
--- NOTE | 2018-05-01 07:10 | NUR ---
HAND-OFF: Report given to Hanna VANESSA.
--- NOTE | 2018-05-01 07:15 | NUR ---
NURSE NOTES: received patient report from jacquelyn packer. patient is on bed awake. with family member. no acute distress noted. denies pain. will continue ot monitor.
[2018-05-01 08:00] VITALS: BP 151/88
[2018-05-01] MEDS: Docusate 100mg cap ORAL SCH ×2 (08:35→17:38)
[2018-05-01] MEDS: Lactulose 20gm/30ml UDC ORAL SCH ×4 (08:36→17:38)
[2018-05-01 09:32] LABS: HEMOGLOBIN 7.4 G/DL (12.0-16.0); MEAN CORPUSCULAR VOLUME 90 FL (80-99); PLATELET COUNT 19 K/UL (150-450); RED BLOOD COUNT 2.45 M/UL (4.20-5.40); RED CELL DISTRIBUTION WIDTH 39.3 % (11.6-14.8); WHITE BLOOD COUNT 14.1 K/UL (4.8-10.8)
[2018-05-01 09:56] LABS: ALANINE AMINOTRANSFERASE 40 U/L (12-78); ALBUMIN 3.6 G/DL (3.4-5.0); ALBUMIN/GLOBULIN RATIO 0.8 (1.0-2.7); ALKALINE PHOSPHATASE 90 U/L (46-116); ANION GAP 13 mmol/L (5-15); ASPARTATE AMINO TRANSFERASE 122 U/L (15-37); BLOOD UREA NITROGEN 29 mg/dL (7-18); CALCIUM 8.4 MG/DL (8.5-10.1); CARBON DIOXIDE 22 MMOL/L (21-32); CHLORIDE 102 MMOL/L (98-107); CREATININE 1.2 MG/DL (0.55-1.30); SODIUM 137 MMOL/L (136-145)
[2018-05-01 09:58] LABS: BILIRUBIN,DIRECT 0.4 MG/DL (0.0-0.3)
[2018-05-01] MEDS ORDERED: Isovue-300 100ml vial INJ PRN (11:45)
[2018-05-01 12:00] VITALS: BP 120/66
--- NOTE | 2018-05-01 12:27 | Neurology Progress Note ---
Interim History Interim History Interim History Ms. Guzman feels better. She has had no further episodes of loss of consciousness or altered consciousness. She however is still confused and disoriented. She continues to be encephalopathic. She continues to be cognitively impoverished. She continue to be in bed all day. She has not noticed any new neurologic symptoms. Review of Systems Neuro Review of Systems Benign. Objective Physical Exam Last Vital Signs Date Time Temp Pulse Resp B/P (MAP) Pulse Ox O2 Delivery O2 Flow Rate FiO2 05/01/18 09:25 Room Air 05/01/18 08:35 151/88 05/01/18 08:00 97.9 85 21 97 04/26/18 14:57 2.0 Laboratory Tests Test 04/30/18 12:45 04/30/18 18:30 05/01/18 09:24 Prothrombin Time 11.4 SEC (9.30-11.50) Prothromb Time International Ratio 1.1 (0.9-1.1) Fibrinogen 154 mg/dL (200-400) L Urine Color Brown Urine Appearance Turbid Urine pH 5 (4.5-8.0) Urine Specific [place] 1.020 (1.005-1.035) Urine Protein 3+ (NEGATIVE) H Urine Glucose (UA) 1+ (NEGATIVE) H Urine Ketones 1+ (NEGATIVE) H Urine Blood 5+ (NEGATIVE) H Urine Nitrite Positive (NEGATIVE) H Urine Bilirubin 1+ (NEGATIVE) H Urine Ictotest Negative (NEGATIVE) Urine Urobilinogen 4 MG/DL (0.0-1.0) H Urine Leukocyte Esterase 2+ (NEGATIVE) H Urine RBC 40-60 /HPF (0 - 2) H Urine WBC 5-10 /HPF (0 - 2) H Urine Squamous Epithelial Cells Few /LPF (NONE/OCC) Urine Bacteria Many /HPF (NONE) H White Blood Count 14.1 K/UL (4.8-10.8) H Red Blood Count 2.45 M/UL (4.20-5.40) L Hemoglobin 7.4 G/DL (12.0-16.0) L Hematocrit 22.0 % (37.0-47.0) L Mean Corpuscular Volume 90 FL (80-99) Mean Corpuscular Hemoglobin 30.0 PG (27.0-31.0) Mean Corpuscular Hemoglobin Concent 33.5 G/DL (32.0-36.0) Red Cell Distribution Width 39.3 % (11.6-14.8) H Platelet Count 19 K/UL (150-450) L Mean Platelet Volume 16.0 FL (6.5-10.1) H Neutrophils (%) (Auto) % (45.0-75.0) Lymphocytes (%) (Auto) % (20.0-45.0) Monocytes (%) (Auto) % (1.0-10.0) Eosinophils (%) (Auto) % (0.0-3.0) Basophils (%) (Auto) % (0.0-2.0) Differential Total Cells Counted 100 Neutrophils % (Manual) 58 % (45-75) Lymphocytes % (Manual) 23 % (20-45) Monocytes % (Manual) 13 % (1-10) H Eosinophils % (Manual) 0 % (0-3) Basophils % (Manual) 0 % (0-2) Band Neutrophils 6 % (0-8) Nucleated Red Blood Cells 36 /100 WBC Platelet Estimate Decreased L Platelet Morphology Normal Polychromasia 3+ Hypochromasia 2+ Anisocytosis 3+ Schistocytes 2+ Sodium Level 137 MMOL/L (136-145) Potassium Level 4.0 MMOL/L (3.5-5.1) Chloride Level 102 MMOL/L (98-107) Carbon Dioxide Level 22 MMOL/L (21-32) Anion Gap 13 mmol/L (5-15) Blood Urea Nitrogen 29 mg/dL (7-18) H Creatinine 1.2 MG/DL (0.55-1.30) Estimat Glomerular Filtration Rate 56.0 mL/min (>60) Glucose Level 244 MG/DL (74-106) H Calcium Level 8.4 MG/DL (8.5-10.1) L Total Bilirubin 2.0 MG/DL (0.2-1.0) H Direct Bilirubin 0.4 MG/DL (0.0-0.3) H Aspartate Amino Transf (AST/SGOT) 122 U/L (15-37) H Alanine Aminotransferase (ALT/SGPT) 40 U/L (12-78) Alkaline Phosphatase 90 U/L (46-116) Total Protein 8.0 G/DL (6.4-8.2) Albumin 3.6 G/DL (3.4-5.0) Globulin 4.4 g/dL Albumin/Globulin Ratio 0.8 (1.0-2.7) L Neurologic Exam Objective PHYSICAL EXAMINATION: GENERAL: She is a well-developed, well-nourished, slightly obese black lady, lying in bed, in no acute distress. HEAD: Normocephalic and atraumatic. EENT: Examination benign. NECK: No neck rigidity was observed. NEUROLOGIC EXAMINATION: MENTAL STATUS EXAMINATION: She was awake and more alert. She was oriented to self, and April. She did not know the date, year, or where she was located. She was able to recall 3/3 words immediately, but could not remember them in 1 minute and 3 minutes. She was able to remember Presidents Trump and Obama only. Her mathematical skills were impaired. Her visuospatial function was also impaired. SPEECH: She had no dysarthria. LANGUAGE: She had word-finding problems during spontaneous speech and at times also had some problems with comprehension. CRANIAL NERVE EXAMINATION: II: The visual king were intact on confrontation testing. III, IV & : External ocular movements were full and the pupils 3 mm in diameter, equal, round, regular, and reactive to light. V: She had normal facial sensations, and the temporales, masseters, and pterygoids functioned normally. VII: She had normal facial expressions and no facial asymmetry. VIII: She was able to hear well bilaterally and had no nystagmus. IX: The palate moved symmetrically on phonation. X: She had no hoarseness of voice. XI: The sternocleidomastoids and trapezii functioned normally. XII: The tongue was in the midline without any fasciculations or atrophy. MOTOR SYSTEM: The tone was normal in all four extremities. Examination of muscle mass revealed no focal wasting. Examination of power revealed G 5/5 power in all muscle groups. SENSORY EXAMINATION: She had intact sensations to light touch. REFLEXES: Trace+ and bilaterally symmetrical at the biceps, triceps, brachioradialis, and knees; zero at both ankles. The plantar responses were flexor bilaterally. COORDINATION: She performed well on [id number] testing. STANCE & GAIT: Could not be tested. Impression/Recommendations Diagnostic Impression 1. Ms. Zoraida Guzman is a 57-year-old, right-handed, black lady, with past history of hypertension and HIV disease, who in the first week of April developed flu-like syndrome. This was followed by dizziness, lightheadedness, and a sensation that she may faint. She was hospitalized for these symptoms on 04/22/2018, and was found to be significantly anemic and thrombocytopenic. She was treated with blood transfusions and improved. Then on the morning of , she suddenly became unresponsive. Her hemoglobin had dropped to 6.8 G. Since then, she was transfused with packed red blood cells and was improving. 2. She feels better. She has had no further episodes of loss of consciousness or altered consciousness. She however is still confused and disoriented. She continues to be encephalopathic. She continues to be cognitively impoverished. She continue to be in bed all day. She has not noticed any new neurologic symptoms. 3. On neurological examination, at this time, she does have problems with orientation, recent and remote memory, visuospatial function, higher cognitive function, and language. She however does not demonstrate any focal or lateralizing neurological findings. Her deep tendon reflexes are globally diminished. 4. The CT scan of the brain without contrast is benign. 5. Her latest laboratory data on my initial evaluation revealed that her WBC count is elevated to 12,000, her hemoglobin has dropped to 6.8 G, and her platelet count is down at 27,000. Her chemistry panel reveals that BUN is elevated to 26 and her glucose is elevated at 194. Her liver function tests from when she came in reveal that her total bilirubin is elevated at 1.7 and AST is elevated at 68. Her B12 is normal at 975, folate is normal at 13.8, and TSH is normal at 3.43. Her ammonia is also normal at 21. 6. The patient's history, neurological examination, laboratory data, and imaging studies are most compatible with an encephalopathy most probably related to her significant anemia and possibly her infectious process. The encephalopathy is better but still present. Recommendations 1. Continue present management. 2. Correct hemoglobin to > 10 G. 3. Will review EEG. 4. Observe closely. Erick Ulrich M.D., M.S.P.H. Erick Ulrich MD May 01, 2018 12:27
--- NOTE | 2018-05-01 12:59 | NUR ---
NURSE NOTES: left a message to dr johnston regarding hgb level of 7.4. awaiting callback and new orders as of this time.
--- NOTE | 2018-05-01 13:08 | NUR ---
NURSE NOTES: dr johnston called back and acknowledged the report. no new orders received for hgb level of 7.4.will continue to monitor.
[2018-05-01] MEDS ORDERED: NS 275ml ONE (13:20)
[2018-05-01] MEDS ORDERED: Tubing IV Blood Pump IV ONE (13:20)
--- NOTE | 2018-05-01 15:00 | General Progress Note ---
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, ferritin is elevated, tibc low --> w/u has been reviewed, some hemolysis mild is noted --> LDH elevated 1322-->1708-->3404 --> trend 7.5--> 6.8-->7.4 --> Hgb goal >7, transfuse prn --> treat underlying hiv ==> consider prednisone use to decrease Ab if anemia does not improve --> IS ON PREDNISONE 20mg po bid # Leukocytosis - potentially related to steriods --> ID service following --> on abx as needed # HIV (human immunodeficiency virus infection) poorly controlled --> continue hiv meds --> appreciate id consult # Bilateral nephrolithiasis --> appreciate renal recs # Dizziness and hematuria r/o kidney stones. --> ivf has been given # Hypomagnesemia -- replete with mag Greatly appreciate consultation! Subjective Constitutional: Denies: no symptoms, chills, diaphoresis, fever, malaise, weakness, other HEENT: Denies: no symptoms, eye pain, blurred vision, tearing, double vision, ear pain, ear discharge, nose pain, nose congestion, throat pain, throat swelling, mouth pain, mouth swelling, other Cardiovascular: Denies: no symptoms, chest pain, edema, irregular heart rate, lightheadedness, palpitations, syncope, other Respiratory: Denies: no symptoms, cough, orthopnea, shortness of breath, SOB with excertion, SOB at rest, sputum, stridor, wheezing, other Gastrointestinal/Abdominal: Denies: no symptoms, abdomen distended, abdominal pain, black stools, tarry stools, blood in stool, constipated, diarrhea, difficulty swallowing, nausea, poor appetite, poor fluid intake, rectal bleeding , vomiting, other Genitourinary: Denies: no symptoms, burning, discharge, frequency, flank pain, hematuria, incontinence, pain, urgency, other Endocrine: Denies: no symptoms, excessive sweating, flushing, intolerance to cold, intolerance to heat, increased hunger, increased thirst, increased urine, unexplained weight gain, unexplained weight loss, other Hematologic/Lymphatic: Denies: no symptoms, anemia, easy bleeding, easy bruising, other Allergies: Coded Allergies: No Known Allergies (Unverified , 04/18/13) Subjective Biopsy perfromed 04/26. S/P blood tx, CBC reviewed 04/30: awaiting biopsy results, pending 05/01: results still pending, less ams, less encephalopathic, no seizures Objective Last 24 Hour Vital Signs Date Time Temp Pulse Resp B/P (MAP) Pulse Ox O2 Delivery O2 Flow Rate FiO2 05/01/18 12:00 98.0 76 20 120/66 (84) 95 05/01/18 11:45 81 05/01/18 09:25 Room Air 05/01/18 08:35 151/88 05/01/18 08:00 97.9 85 21 151/88 (109) 97 05/01/18 08:00 86 05/01/18 04:00 97.0 80 21 135/81 (99) 95 05/01/18 04:00 79 05/01/18 00:00 80 05/01/18 00:00 97.3 79 21 132/74 (93) 97 04/30/18 21:00 Room Air 04/30/18 20:00 91 04/30/18 20:00 97.0 112 21 132/87 (102) 96 04/30/18 16:00 97.4 93 18 125/77 (93) 100 Intake and Output 04/30/18 05/01/18 18:59 06:59 Intake Total 120 ml Balance 120 ml Intake Oral 120 ml # Voids 1 2 # Bowel Movements 1 2 Laboratory Tests 04/30/18 18:30: Urine Color Brown, Urine Appearance Turbid, Urine pH 5, Urine Specific [place] 1.020, Urine Protein 3+H, Urine Glucose (UA) 1+H, Urine Ketones 1+H, Urine Blood 5+H, Urine Nitrite PositiveH, Urine Bilirubin 1+H, Urine Ictotest Negative , Urine Urobilinogen 4H, Urine Leukocyte Esterase 2+H, Urine RBC 40-60H, Urine WBC 5-10H, Urine Squamous Epithelial Cells Few, Urine Bacteria ManyH 05/01/18 09:24: White Blood Count 14.1H, Red Blood Count 2.45L, Hemoglobin 7.4L, Hematocrit 22.0L, Mean Corpuscular Volume 90, Mean Corpuscular Hemoglobin 30.0, Mean Corpuscular Hemoglobin Concent 33.5, Red Cell Distribution Width 39.3H, Platelet Count 19L, Mean Platelet Volume 16.0H, Neutrophils (%) (Auto) , Lymphocytes (%) (Auto) , Monocytes (%) (Auto) , Eosinophils (%) (Auto) , Basophils (%) (Auto) , Differential Total Cells Counted 100, Neutrophils % ( Manual) 58, Lymphocytes % (Manual) 23, Monocytes % (Manual) 13H, Eosinophils % ( Manual) 0, Basophils % (Manual) 0, Band Neutrophils 6, Nucleated Red Blood Cells 36, Platelet Estimate DecreasedL, Platelet Morphology Normal, Polychromasia 3+, Hypochromasia 2+, Anisocytosis 3+, Schistocytes 2+, Sodium Level 137, Potassium Level 4.0, Chloride Level 102, Carbon Dioxide Level 22, Anion Gap 13, Blood Urea Nitrogen 29H, Creatinine 1.2, Estimat Glomerular Filtration Rate 56.0, Glucose Level 244H, Calcium Level 8.4L, Total Bilirubin 2.0H, Direct Bilirubin 0.4H, Aspartate Amino Transf (AST/SGOT) 122H, Alanine Aminotransferase (ALT/SGPT) 40, Alkaline Phosphatase 90, Total Protein 8.0, Albumin 3.6, Globulin 4.4, Albumin/Globulin Ratio 0.8L Height (Feet): 5 Height (Inches): 2.00 Weight (Pounds): 229 General Appearance: alert EENT: TMs normal Neck: supple Cardiovascular: regular rhythm Respiratory/Chest: no respiratory distress Abdomen: no mass Objective General Appearance: alert EENT: TMs normal Neck: normal inspection Cardiovascular: regular rhythm Respiratory/Chest: no respiratory distress Abdomen: no organomegaly Extremities: non-tender Edema: mild edema Skin: warm/dry Antony Julian MD May 01, 2018 15:00
--- NOTE | 2018-05-01 15:25 | Pulmonology Progress Note ---
Assessment/Plan Assessment/Plan Pulmonary Progress Note Assessment/Plan Assessment/Plan IMPRESSION HIV Thrombocytopenia itchyness anemia, more altered today CYLINDER GRINDER called, CT head negative AMS, probable encephalopathy PLAN Hematology following, TFN PRN no other changes for now await heme recommendations BM result pending impression, plan, and exam edited and reviewed in detail care discussed with RN Subjective Allergies: Coded Allergies: No Known Allergies (Unverified , 04/18/13) Subjective findings noted d/w heme awaiting clearance Objective Vital Signs Noted Laboratory Tests 04/27/18 09:15: White Blood Count 9.6, Red Blood Count 2.67L, Hemoglobin 7.8#L, Hematocrit 22.5L , Mean Corpuscular Volume 84, Mean Corpuscular Hemoglobin 29.4, Mean Corpuscular Hemoglobin Concent 34.9, Red Cell Distribution Width 24.5H, Platelet Count 20L, Mean Platelet Volume 13.2H, Neutrophils (%) (Auto) , Lymphocytes (%) (Auto) , Monocytes (%) (Auto) , Eosinophils (%) (Auto) , Basophils (%) (Auto) , Differential Total Cells Counted 100, Neutrophils % ( Manual) 62, Lymphocytes % (Manual) 26, Monocytes % (Manual) 11H, Eosinophils % ( Manual) 0, Basophils % (Manual) 0, Metamyelocytes % 1H, Band Neutrophils 0, Nucleated Red Blood Cells 37, Platelet Estimate DecreasedL, Platelet Morphology Normal, Polychromasia 2+, Hypochromasia 2+, Poikilocytosis 1+, Anisocytosis 3+, Spherocytes 2+, Schistocytes 1+, Reticulocyte Count 8.0H, Hemoglobin A [Pending] , Hemoglobin A2 [Pending], Hemoglobin C [Pending], Hemoglobin F () [Pending ], Hemoglobin S [Pending], Variant Hemoglobin [Pending], Hemoglobin Electrophoresis Interp [Pending], Hemoglobin Interpretation [Pending], Hemoglobin Solubility [Pending], Haptoglobin [Pending], Prothrombin Time 11.4, Prothromb Time International Ratio 1.1, Total Bilirubin 2.1H, Direct Bilirubin 0.4H, Lactate Dehydrogenase 1780H, Rheumatoid Factor Screen [Pending], Anti- Nuclear Antibody Screen [Pending] Height (Feet): 5 Height (Inches): 2.00 Weight (Pounds): 229 Objective WDWN NAD clear breath sounds bilaterally without rhonchi or wheeze [id number] without MRG NABS nontender no HSM no CCE nonfocal Subjective ROS Limited/Unobtainable: No Allergies: Coded Allergies: No Known Allergies (Unverified , 04/18/13) Objective Last 24 Hour Vital Signs Date Time Temp Pulse Resp B/P (MAP) Pulse Ox O2 Delivery O2 Flow Rate FiO2 05/01/18 12:00 98.0 76 20 120/66 (84) 95 05/01/18 11:45 81 05/01/18 09:25 Room Air 05/01/18 08:35 151/88 05/01/18 08:00 97.9 85 21 151/88 (109) 97 05/01/18 08:00 86 05/01/18 04:00 97.0 80 21 135/81 (99) 95 05/01/18 04:00 79 05/01/18 00:00 80 05/01/18 00:00 97.3 79 21 132/74 (93) 97 04/30/18 21:00 Room Air 04/30/18 20:00 91 04/30/18 20:00 97.0 112 21 132/87 (102) 96 04/30/18 16:00 97.4 93 18 125/77 (93) 100 Intake and Output 04/30/18 05/01/18 18:59 06:59 Intake Total 120 ml Balance 120 ml Intake Oral 120 ml # Voids 1 2 # Bowel Movements 1 2 Laboratory Tests 04/30/18 18:30: Urine Color Brown, Urine Appearance Turbid, Urine pH 5, Urine Specific [place] 1.020, Urine Protein 3+H, Urine Glucose (UA) 1+H, Urine Ketones 1+H, Urine Blood 5+H, Urine Nitrite PositiveH, Urine Bilirubin 1+H, Urine Ictotest Negative , Urine Urobilinogen 4H, Urine Leukocyte Esterase 2+H, Urine RBC 40-60H, Urine WBC 5-10H, Urine Squamous Epithelial Cells Few, Urine Bacteria ManyH 05/01/18 09:24: White Blood Count 14.1H, Red Blood Count 2.45L, Hemoglobin 7.4L, Hematocrit 22.0L, Mean Corpuscular Volume 90, Mean Corpuscular Hemoglobin 30.0, Mean Corpuscular Hemoglobin Concent 33.5, Red Cell Distribution Width 39.3H, Platelet Count 19L, Mean Platelet Volume 16.0H, Neutrophils (%) (Auto) , Lymphocytes (%) (Auto) , Monocytes (%) (Auto) , Eosinophils (%) (Auto) , Basophils (%) (Auto) , Differential Total Cells Counted 100, Neutrophils % ( Manual) 58, Lymphocytes % (Manual) 23, Monocytes % (Manual) 13H, Eosinophils % ( Manual) 0, Basophils % (Manual) 0, Band Neutrophils 6, Nucleated Red Blood Cells 36, Platelet Estimate DecreasedL, Platelet Morphology Normal, Polychromasia 3+, Hypochromasia 2+, Anisocytosis 3+, Schistocytes 2+, Sodium Level 137, Potassium Level 4.0, Chloride Level 102, Carbon Dioxide Level 22, Anion Gap 13, Blood Urea Nitrogen 29H, Creatinine 1.2, Estimat Glomerular Filtration Rate 56.0, Glucose Level 244H, Calcium Level 8.4L, Total Bilirubin 2.0H, Direct Bilirubin 0.4H, Aspartate Amino Transf (AST/SGOT) 122H, Alanine Aminotransferase (ALT/SGPT) 40, Alkaline Phosphatase 90, Total Protein 8.0, Albumin 3.6, Globulin 4.4, Albumin/Globulin Ratio 0.8L Current Medications Medications (Trade) Dose Ordered Sig/Ellen Route PRN Reason Start Time Stop Time Status Last Admin Dose Admin Diphenhydramine HCl (Benadryl) 25 mg Q6H PRN ORAL Itching 04/30/18 14:06 05/22/18 14:05 Docusate Sodium (Colace) 100 mg TWICE A DAY ORAL 04/30/18 18:00 05/29/18 17:59 05/01/18 08:35 Famotidine (Pepcid) 20 mg BID ORAL 04/30/18 18:00 05/23/18 08:59 05/01/18 08:34 Gabapentin (Neurontin) 300 mg THREE TIMES A DAY ORAL 04/30/18 18:00 05/23/18 08:59 05/01/18 12:22 Irbesartan (Avapro) 75 mg DAILY ORAL 05/01/18 09:00 05/23/18 08:59 05/01/18 08:35 Lactulose (Cephulac) 30 gm THREE TIMES A DAY ORAL 04/30/18 18:00 05/29/18 17:59 04/30/18 19:06 Levothyroxine Sodium (Synthroid) 112 mcg ACBREAKFAST ORAL 05/01/18 06:30 05/23/18 06:29 Ondansetron HCl (Zofran) 4 mg Q6H PRN IVP Nausea & Vomiting 04/30/18 16:15 05/30/18 16:14 Prednisone (predniSONE) 20 mg BID ORAL 04/30/18 18:00 05/23/18 08:59 05/01/18 08:34 Romain Kerr MD May 01, 2018 15:25
--- NOTE | 2018-05-01 15:30 | Electroencephalogram ---
REQUESTING PHYSICIAN: Romain Kerr M.D. READING PHYSICIAN: Erick Ulrich M.D. PROCEDURE PERFORMED: Electroencephalogram. DATE OF TRACIN05/01/2018 HISTORY: This EEG was performed on a 57-year-old lady with a history of hypertension and HIV disease. She apparently became poorly responsive on 04/30/2018 associated with a significant drop in her hemoglobin. She got a blood transfusion and did improve but continues to have an alteration in mental state and thus an EEG was performed to evaluate the patient for the degree and type of cerebral dysfunction. TECHNICAL NOTE: This EEG was performed on a [employer] with electrodes placed on the scalp according to the International 10-20 system. [id number] and [id number] montages were used. The EEG was technically satisfactory and was performed in the awake, drowsy, and sleep states. OBSERVATIONS: In the best awake state, the background activity predominantly of 7.5-8 hertz activity with some faster 8.5 Hz activity. Drowsiness was characterized by slowing of the background in the 4-5 Hz theta range. Stage II sleep was characterized by further slowing of the background in the delta and theta range, the presence of vertex waves, and 14 Hz sleep spindles. No focal abnormalities or epileptiform discharges were seen. IMPRESSION: This is an abnormal EEG characterized by slowing of the background predominantly in the 7.5-8 hz range in the best awake state. COMMENT: This study is consistent with an encephalopathy of a mild degree. Erick Ulrich M.D., M.S.P.H. DR: HARDIK JOB#: [id number] MTDD
[2018-05-01 16:35] VITALS: BP 127/69
[2018-05-01 16:43] LABS: INR 1.1 (0.9-1.1)
--- NOTE | 2018-05-01 19:36 | NUR ---
NURSE NOTES: Received report from OTF Ferreira. Patient AO3 resting in bed with NAD. Family at bedside. IV flushed and patent. Bed at lowest position; side rails raised x3; bed alarm on; call light within reach. Will follow plan of care.
--- NOTE | 2018-05-01 19:36 | NUR ---
HAND-OFF: Report given to nkechi sanchez rn.
[2018-05-01 20:00] VITALS: BP 129/70
[2018-05-02] VITALS: BP 113/69
--- NOTE | 2018-05-02 01:00 | NUR ---
NURSE NOTES: Assisted pt to bathroom. OB Stool collected and sent down to lab. Assisted pt back to bed. AO3. NAD. VSS.
[2018-05-02 04:00] VITALS: BP 126/78
--- NOTE | 2018-05-02 07:15 | NUR ---
NURSE NOTES: RECEIVED PT RESTING IN BED AWAKE AND ALERT TO NAME AND PLACE,DENIES CP OR SOB AT THIS TIME.PT ABLE TO FOLLOW SIMPLE COMMANDS.FULL BODY ASSESSMENT DONE.PT REMAIN FREE OF INJURIES AT THIS TIME.WILL CONT TO MONITOR.
--- NOTE | 2018-05-02 07:30 | NUR ---
HAND-OFF: Report given to OTF Mendoza. Patient in stable condition. Plan of care endorsed.
--- NOTE | 2018-05-02 07:31 | NUR ---
HAND-OFF: Report given to OTF [place]. Patient in stable condition. Plan of care endorsed.
[2018-05-02 08:00] VITALS: BP 126/78
--- NOTE | 2018-05-02 08:00 | NUR ---
NURSE NOTES: YVON DELONG CAME TO SEE THE PT AND MADE AWARE AND NOTIFIED REGARDING PT HGB 7.4 AND PLT 19 .NO NEW ORDERS NOTED AT THIS TIME.WILL CONT TO MONITOR.
--- NOTE | 2018-05-02 08:00 | NUR ---
NURSE NOTES:Melissa CHING CAME TO SEE THE PT AND MADE AWARE AND NOTIFIED REGARDING HGB 7.4 AND PLT 19.NO NEW ORDERS NOTED AT THIS TIME.WILL CONT TO MONITOR.
--- NOTE | 2018-05-02 08:41 | NUR ---
CASE MANAGEMENT:REVIEW 05/01/18 SI: ENCEPHALOPATHY. ANEMIA THROMBOCYTOPENIA 97.9 85 21 151/88 97% ON RA WBC+14.1 H/H-7.4/22.0 IS: AVAPRO PO QD SYNTHROID PO QAM PEPCID PO BID NEURONTIN PO TID LACTULOSE PO TID PREDNISONE PO BID : TELEMETRY STATUS 05/02/18 SI: ENCEPHALOPATHY. ANEMIA THROMBOCYTOPENIA 98.6//77 20 126/78 97% ON RA IS: AVAPRO PO QD SYNTHROID PO QAM PEPCID PO BID NEURONTIN PO TID LACTULOSE PO TID PREDNISONE PO BID : TELEMETRY STATUS
--- NOTE | 2018-05-02 09:04 | NUR ---
INSURANCE ALL CLINICALS AND REVIEWS FAXED TO: [employer] NCM:[facility]IZE P:[phone] F:[phone] TRK#[id number]
[2018-05-02] MEDS: Docusate 100mg cap ORAL SCH ×2 (09:43→17:53)
[2018-05-02] MEDS: Lactulose 20gm/30ml UDC ORAL SCH ×3 (09:44→17:53)
--- NOTE | 2018-05-02 10:00 | NUR ---
NURSE NOTES:PT SISTER AT BED SIDE GUILHERME STATING ," MY SISTER SEEMS CONFUSED AFTER SHE TOOK NEURONTIN MEDICATION.PT AWAKE AND ALERT BUT WITH PERIODS OF CONFUSION.PT HAS HX OF HIV.PLACED A TELEPHONE CALL TO DR DAILY AND MADE AWARE AND NOTIFIED REGARDING PT SISTER STATING THAT NEURONTIN MEDICATION MADE HER SISTER CONFUSED.RECEIVED A TO FROM DR DAILY TO D/C NEURONTIN AND PLACED PRN Q 8HRS FOR NEURO PAIN.NEW ORDERS NOTED AND CARRIED OUT.WILL CONT TO MONITOR.
--- NOTE | 2018-05-02 10:20 | General Progress Note ---
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, ferritin is elevated, tibc low --> w/u has been reviewed, some hemolysis mild is noted --> LDH elevated 1322-->1708-->3404 --> trend 7.5--> 6.8-->7.4 --> Hgb goal >7, transfuse prn --> treat underlying hiv ==> consider prednisone use to decrease Ab if anemia does not improve --> IS ON PREDNISONE 20mg po bid # Leukocytosis - potentially related to steroids --> monitor and trend wbc for improvement --> ID service following --> on abx as needed # HIV (human immunodeficiency virus infection) poorly controlled --> continue hiv meds --> appreciate id consult # Bilateral nephrolithiasis --> appreciate renal recs # Dizziness and hematuria r/o kidney stones. --> ivf has been given # Hypomagnesemia -- replete with mag Greatly appreciate consultation! Subjective Date patient seen: May 02, 2018 Hematologic/Lymphatic: Reports: anemia Allergies: Coded Allergies: No Known Allergies (Unverified , 04/18/13) All Systems: reviewed and negative except above Subjective Pt awake and alert. No acute events. VS stable. Objective Last 24 Hour Vital Signs Date Time Temp Pulse Resp B/P (MAP) Pulse Ox O2 Delivery O2 Flow Rate FiO2 05/02/18 09:44 126/78 05/02/18 08:00 97.5 88 18 126/78 (94) 97 05/02/18 04:00 98.6 87 20 126/78 (94) 97 05/02/18 04:00 77 05/02/18 00:00 97.0 85 20 113/69 (84) 98 12/26/18 00:00 85 05/01/18 21:00 Room Air 05/01/18 20:00 88 05/01/18 20:00 98.0 90 20 129/70 (89) 98 05/01/18 16:35 99.0 92 20 127/69 (88) 96 05/01/18 16:00 87 05/01/18 12:00 98.0 76 20 120/66 (84) 95 05/01/18 11:45 81 Intake and Output 05/01/18 05/02/18 19:00 07:00 Intake Total 500 ml 850 ml Output Total 400 ml Balance 500 ml 450 ml Intake Oral 500 ml 500 ml Blood Product 350 ml Output Urine Total 400 ml # Voids 2 2 # Bowel Movements 2 2 Laboratory Tests 05/01/18 15:50: Haptoglobin [Pending], Prothrombin Time 11.1, Prothromb Time International Ratio 1.1, Fibrinogen 136*L, D-Dimer 25.36H, Complement C3 [Pending], Complement C4 [Pending], Parvovirus B19 DNA (PCR) [Pending] 05/02/18 00:23: Stool Occult Blood Positive Height (Feet): 5 Height (Inches): 2.00 Weight (Pounds): 231 Objective General Appearance: alert EENT: TMs normal Neck: normal inspection Cardiovascular: regular rhythm Respiratory/Chest: no respiratory distress Abdomen: no organomegaly Extremities: non-tender Edema: mild edema Skin: warm/dry Antony Julian MD May 02, 2018 10:20
--- NOTE | 2018-05-02 10:52 | NUR ---
TRANSFER UPDATE DR DALIY HAS PLACED PATIENT ON THE TRANSFER LIST AT [facility] [employer] SERV[employer] ATTENDANT FAXED FACESHEET TO [facility] T: [phone] F: [phone]
[2018-05-02 12:00] VITALS: BP 129/67
--- NOTE | 2018-05-02 13:17 | NUR ---
RD ASSESSMENT & RECOMMENDATIONS SEE CARE ACTIVITY FOR COMPLETE ASSESSMENT DAILY ESTIMATED NEEDS: Needs based on HIV, obese 63.5kg adj 25-30 kcals/kg 8451-0813 total kcals 1-2 g protein/kg 64-127 g total protein 25-30 mL/kg 5508-9642 total fluid mLs NUTRITION DIAGNOSIS: 1) Altered nutrition related lab values r/t clinical status, anemia as evidenced by Hgb 5.9-> 7.4, elev LD (3404), elev T bili (2.0), elev BG (194-244/ on prednisone). 2) Obese etiology unknown as evidenced by BMI >40, pt is 208% IBW. CURRENT DIET: Low Na ms chopped PO DIET RECOMMENDATIONS: Regular diet as tolerated w/ current poor to fair po intake ADDITIONAL RECOMMENDATIONS: 1) Obtain a standing wt as able for accurate CBW 2) Monitor BG on steroids/ need for hypoglycemics, ssi 3) Check lytes daily, replete as needed 4) Rec Vit C w/ Iron supplementation 5) Add snacks BID in b/w meals (po intake is 25-50%)
--- NOTE | 2018-05-02 15:38 | Infectious Diseases Prog Note ---
Assessment/Plan Assessment/Plan Full consult dictated: A) 1) encephalopathy, ? infectious, ? encephalitis/meningitis, ? OI 2) leukocytosis, sirs, ? sepsis 3) possible uti 4) hiv - ? cd4, viral load, ? anti-retroviral therapy tx 5) thrombocytopenia, anemia P) 1) rocephin 2) check cultures, labs, chest x-ray 3) check cd4, viral load, serology 4) hem/onc w/u in progress, f/u on bone marrow 5) thank you Subjective Allergies: Coded Allergies: No Known Allergies (Unverified , 04/18/13) Objective Vital Signs Last 24 Hour Vital Signs Date Time Temp Pulse Resp B/P (MAP) Pulse Ox O2 Delivery O2 Flow Rate FiO2 05/02/18 12:00 81 05/02/18 12:00 98.7 83 18 129/67 (87) 97 05/02/18 09:44 126/78 05/02/18 09:00 Room Air 05/02/18 08:00 82 05/02/18 08:00 97.5 88 18 126/78 (94) 97 05/02/18 04:00 98.6 87 20 126/78 (94) 97 05/02/18 04:00 77 05/02/18 00:00 97.0 85 20 113/69 (84) 98 05/02/18 00:00 85 05/01/18 21:00 Room Air 05/01/18 20:00 88 05/01/18 20:00 98.0 90 20 129/70 (89) 98 05/01/18 16:35 99.0 92 20 127/69 (88) 96 05/01/18 16:00 87 Height (Feet): 5 Height (Inches): 2.00 Weight (Pounds): 231 Microbiology Date/Time Source Procedure Growth Status 04/30/18 18:30 Urine,Clean Catch Urine Culture - Preliminary Resulted Laboratory Tests Test 05/01/18 15:50 05/02/18 00:23 Haptoglobin Pending Prothrombin Time 11.1 SEC (9.30-11.50) Prothromb Time International Ratio 1.1 (0.9-1.1) Fibrinogen 136 mg/dL (200-400) *L D-Dimer 25.36 mg/L FEU (0.00-0.49) H Complement C3 Pending Complement C4 Pending Parvovirus B19 DNA (PCR) Pending Stool Occult Blood Positive (NEGATIVE) Current Medications Medications (Trade) Dose Ordered Sig/Ellen Route PRN Reason Start Time Stop Time Status Last Admin Dose Admin Ceftriaxone Sodium 1 gm/ Dextrose 50 ml @ 100 mls/hr Q24H IVPB 05/02/18 16:00 05/09/18 15:59 Diphenhydramine HCl (Benadryl) 25 mg Q6H PRN ORAL Itching 04/30/18 14:06 05/22/18 14:05 Docusate Sodium (Colace) 100 mg TWICE A DAY ORAL 04/30/18 18:00 05/29/18 17:59 05/02/18 09:43 Famotidine (Pepcid) 20 mg BID ORAL 04/30/18 18:00 05/23/18 08:59 05/02/18 09:43 Gabapentin (Neurontin) 300 mg Q8H PRN ORAL Neurological pain 05/02/18 11:00 06/01/18 10:59 Irbesartan (Avapro) 75 mg DAILY ORAL 05/01/18 09:00 05/23/18 08:59 05/02/18 09:44 Lactulose (Cephulac) 30 gm THREE TIMES A DAY ORAL 04/30/18 18:00 05/29/18 17:59 05/02/18 12:45 Levothyroxine Sodium (Synthroid) 112 mcg ACBREAKFAST ORAL 05/01/18 06:30 05/23/18 06:29 05/02/18 05:52 Ondansetron HCl (Zofran) 4 mg Q6H PRN IVP Nausea & Vomiting 04/30/18 16:15 05/30/18 16:14 Prednisone (predniSONE) 20 mg BID ORAL 04/30/18 18:00 05/23/18 08:59 05/02/18 09:43 Lm Britt MD May 02, 2018 15:38
--- NOTE | 2018-05-02 15:59 | Pulmonology Progress Note ---
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 called, CT head negative AMS, probable encephalopathy, less confused today ID following, now on Rocephin PLAN Hematology following, TFN PRN ID following Neuro following Family requesting TF to [facility] BM result pending impression, plan, and exam edited and reviewed in detail care discussed with RN Subjective Allergies: Coded Allergies: No Known Allergies (Unverified , 04/18/13) Subjective findings noted d/w heme awaiting clearance Objective Vital Signs Noted Laboratory Tests 04/27/18 09:15: White Blood Count 9.6, Red Blood Count 2.67L, Hemoglobin 7.8#L, Hematocrit 22.5L , Mean Corpuscular Volume 84, Mean Corpuscular Hemoglobin 29.4, Mean Corpuscular Hemoglobin Concent 34.9, Red Cell Distribution Width 24.5H, Platelet Count 20L, Mean Platelet Volume 13.2H, Neutrophils (%) (Auto) , Lymphocytes (%) (Auto) , Monocytes (%) (Auto) , Eosinophils (%) (Auto) , Basophils (%) (Auto) , Differential Total Cells Counted 100, Neutrophils % ( Manual) 62, Lymphocytes % (Manual) 26, Monocytes % (Manual) 11H, Eosinophils % ( Manual) 0, Basophils % (Manual) 0, Metamyelocytes % 1H, Band Neutrophils 0, Nucleated Red Blood Cells 37, Platelet Estimate DecreasedL, Platelet Morphology Normal, Polychromasia 2+, Hypochromasia 2+, Poikilocytosis 1+, Anisocytosis 3+, Spherocytes 2+, Schistocytes 1+, Reticulocyte Count 8.0H, Hemoglobin A [Pending] , Hemoglobin A2 [Pending], Hemoglobin C [Pending], Hemoglobin F () [Pending ], Hemoglobin S [Pending], Variant Hemoglobin [Pending], Hemoglobin Electrophoresis Interp [Pending], Hemoglobin Interpretation [Pending], Hemoglobin Solubility [Pending], Haptoglobin [Pending], Prothrombin Time 11.4, Prothromb Time International Ratio 1.1, Total Bilirubin 2.1H, Direct Bilirubin 0.4H, Lactate Dehydrogenase 1780H, Rheumatoid Factor Screen [Pending], Anti- Nuclear Antibody Screen [Pending] Height (Feet): 5 Height (Inches): 2.00 Weight (Pounds): 229 Objective WDWN NAD clear breath sounds bilaterally without rhonchi or wheeze [id number] without MRG NABS nontender no HSM no CCE nonfocal Subjective ROS Limited/Unobtainable: No Allergies: Coded Allergies: No Known Allergies (Unverified , 04/18/13) Objective Last 24 Hour Vital Signs Date Time Temp Pulse Resp B/P (MAP) Pulse Ox O2 Delivery O2 Flow Rate FiO2 05/02/18 12:00 81 05/02/18 12:00 98.7 83 18 129/67 (87) 97 05/02/18 09:44 126/78 05/02/18 09:00 Room Air 05/02/18 08:00 82 05/02/18 08:00 97.5 88 18 126/78 (94) 97 05/02/18 04:00 98.6 87 20 126/78 (94) 97 05/02/18 04:00 77 05/02/18 00:00 97.0 85 20 113/69 (84) 98 05/02/18 00:00 85 05/01/18 21:00 Room Air 05/01/18 20:00 88 05/01/18 20:00 98.0 90 20 129/70 (89) 98 05/01/18 16:35 99.0 92 20 127/69 (88) 96 05/01/18 16:00 87 Intake and Output 05/01/18 05/02/18 18:59 06:59 Intake Total 500 ml 850 ml Output Total 400 ml Balance 500 ml 450 ml Intake Oral 500 ml 500 ml Blood Product 350 ml Output Urine Total 400 ml # Voids 2 2 # Bowel Movements 2 2 Microbiology Date/Time Source Procedure Growth Status 04/30/18 18:30 Urine,Clean Catch Urine Culture - Preliminary Resulted Laboratory Tests 05/02/18 00:23: Stool Occult Blood Positive Current Medications Medications (Trade) Dose Ordered Sig/Ellen Route PRN Reason Start Time Stop Time Status Last Admin Dose Admin Ceftriaxone Sodium 1 gm/ Dextrose 50 ml @ 100 mls/hr Q24H IVPB 05/02/18 16:00 05/09/18 15:59 Diphenhydramine HCl (Benadryl) 25 mg Q6H PRN ORAL Itching 04/30/18 14:06 05/22/18 14:05 Docusate Sodium (Colace) 100 mg TWICE A DAY ORAL 04/30/18 18:00 05/29/18 17:59 05/02/18 09:43 Famotidine (Pepcid) 20 mg BID ORAL 04/30/18 18:00 05/23/18 08:59 05/02/18 09:43 Gabapentin (Neurontin) 300 mg Q8H PRN ORAL Neurological pain 05/02/18 11:00 06/01/18 10:59 Irbesartan (Avapro) 75 mg DAILY ORAL 05/01/18 09:00 05/23/18 08:59 05/02/18 09:44 Lactulose (Cephulac) 30 gm THREE TIMES A DAY ORAL 04/30/18 18:00 05/29/18 17:59 05/02/18 12:45 Levothyroxine Sodium (Synthroid) 112 mcg ACBREAKFAST ORAL 05/01/18 06:30 05/23/18 06:29 05/02/18 05:52 Ondansetron HCl (Zofran) 4 mg Q6H PRN IVP Nausea & Vomiting 04/30/18 16:15 05/30/18 16:14 Prednisone (predniSONE) 20 mg BID ORAL 04/30/18 18:00 05/23/18 08:59 05/02/18 09:43 Romain Kerr MD May 02, 2018 15:59
[2018-05-02 16:00] VITALS: BP 109/64
--- NOTE | 2018-05-02 16:46 | NUR ---
NURSE NOTES:WOUND CARE NOTES:PT presents with open blister R sacral area(L)0.6cm x (W)1.1cm oozing small amt sanguineous exudate.Small pocketing of blood along borders.Periwound warm and indurated.No odor noted. Sister at bedside and is aware of wound. Skin Barrier applied and covered with Optifoam drsg. Both heels are dry and blanchable .No other areas of skin concerns noted. Tx.Plan:Cleanse with Saline .Apply Cavilon Skin Barrier .Cover with Optifoam drsg .Change every 3 days and prn. Encourage and assist with repositioning at least every 2hours or as tolerated. Off-load heels with pillow.
--- NOTE | 2018-05-02 17:16 | NUR ---
TRANSFER UPDATE CHECK INSPECTOR CALLED [facility] AND SPOKE WITH ELOISA AMIN PATIENT IS ON THE LIST FOR TRANSFER HOWEVER HE DOUBTS THEY WILL HAVE A BED FOR THIS PATIENT SINCE IT IS A LATERAL TRANSFER CHECK INSPECTOR WILL CONTINUE TO CHECK DAILY BUT TRANSFER TO [facility] T: [phone] F: [phone]
[2018-05-02] MEDS: cefTRIAXone 1 GM in D5W 50 ML IVPB SCH (17:22)
--- NOTE | 2018-05-02 18:24 | Neurology Progress Note ---
Interim History Interim History Interim History Ms. Guzman feels better. She feels that her mind is clearer. She has had no further episodes of loss of consciousness or altered consciousness. She is still a little confused and disoriented. She is less encephalopathic. She continues to be cognitively impoverished. She continues to be in bed all day. She has not noticed any new neurologic symptoms. Review of Systems Neuro Review of Systems Benign. Objective Physical Exam Last Vital Signs Date Time Temp Pulse Resp B/P (MAP) Pulse Ox O2 Delivery O2 Flow Rate FiO2 05/02/18 16:00 100 05/02/18 16:00 97.0 18 109/64 (79) 98 05/02/18 09:00 Room Air 04/26/18 14:57 2.0 Laboratory Tests Test 05/02/18 00:23 05/02/18 17:30 Stool Occult Blood Positive (NEGATIVE) White Blood Count Pending Lymphocytes Pending Lactic Acid Level Pending Lactate Dehydrogenase Pending Percent CD3 Cells Pending Absolute CD3 Count Pending Percent CD4 Cells Pending Absolute CD4 Count Pending T-Lymphocyte CD4/CD8 Ratio Pending Percent CD8 Cells Pending Absolute CD8 Count Pending Coccidioides Antibody (Comp Fix) Pending West Nile Virus IgG Antibody Pending West Nile Virus IgM Antibody Pending HIV-1 RNA (PCR) log10 Value Pending HIV-1 RNA Ultraquantitative (PCR) Pending Neurologic Exam Objective PHYSICAL EXAMINATION: GENERAL: She is a well-developed, well-nourished, slightly obese black lady, lying in bed, in no acute distress. HEAD: Normocephalic and atraumatic. EENT: Examination benign. NECK: No neck rigidity was observed. NEUROLOGIC EXAMINATION: MENTAL STATUS EXAMINATION: She was awake and alert. She was oriented to self, [facility] [place] May 02, 2018 by looking at the board. She was able to recall 3/3 words immediately, but could only remember 1/3 in 1 minute and 3 minutes. She was able to remember Presidents Trump through Mcfadden Jr only with hints Her mathematical skills were impaired. Her visuospatial function was also impaired. SPEECH: She had no dysarthria. LANGUAGE: She had word-finding problems during spontaneous speech and also had problems with comprehension. CRANIAL NERVE EXAMINATION: II: The visual king were intact on confrontation testing. III, IV & : External ocular movements were full and the pupils 3 mm in diameter, equal, round, regular, and reactive to light. V: She had normal facial sensations, and the temporales, masseters, and pterygoids functioned normally. VII: She had normal facial expressions and no facial asymmetry. VIII: She was able to hear well bilaterally and had no nystagmus. IX: The palate moved symmetrically on phonation. X: She had no hoarseness of voice. XI: The sternocleidomastoids and trapezii functioned normally. XII: The tongue was in the midline without any fasciculations or atrophy. MOTOR SYSTEM: The tone was normal in all four extremities. Examination of muscle mass revealed no focal wasting. Examination of power revealed G 5/5 power in all muscle groups. SENSORY EXAMINATION: She had intact sensations to light touch. REFLEXES: Trace+ and bilaterally symmetrical at the biceps, triceps, brachioradialis, and knees; zero at both ankles. The plantar responses were flexor bilaterally. COORDINATION: She performed well on [id number] testing. STANCE & GAIT: Could not be tested. Impression/Recommendations Diagnostic Impression 1. Ms. Zoraida Guzman is a 57-year-old, right-handed, black lady, with past history of hypertension and HIV disease, who in the first week of April developed flu-like syndrome. This was followed by dizziness, lightheadedness, and a sensation that she may faint. She was hospitalized for these symptoms on 04/22/2018, and was found to be significantly anemic and thrombocytopenic. She was treated with blood transfusions and improved. Then on the morning of , she suddenly became unresponsive. Her hemoglobin had dropped to 6.8 G. Since then, she was transfused with packed red blood cells and was improving. 2. She feels better. She has had no further episodes of loss of consciousness or altered consciousness. She however is still confused and disoriented. She continues to be encephalopathic. She continues to be cognitively impoverished. She continue to be in bed all day. She has not noticed any new neurologic symptoms. 3. On neurological examination, at this time, she does have problems with orientation, recent and remote memory, visuospatial function, higher cognitive function, and language. She however does not demonstrate any focal or lateralizing neurological findings. Her deep tendon reflexes are globally diminished. 4. The CT scan of the brain without contrast is benign. 5. Her latest laboratory data on my initial evaluation revealed that her WBC count is elevated to 12,000, her hemoglobin has dropped to 6.8 G, and her platelet count is down at 27,000. Her chemistry panel reveals that BUN is elevated to 26 and her glucose is elevated at 194. Her liver function tests from when she came in reveal that her total bilirubin is elevated at 1.7 and AST is elevated at 68. Her B12 is normal at 975, folate is normal at 13.8, and TSH is normal at 3.43. Her ammonia is also normal at 21. 6. The patient's history, neurological examination, laboratory data, and imaging studies are most compatible with an encephalopathy most probably related to her significant anemia and possibly her infectious process. The encephalopathy is better but still present. Recommendations 1. Continue present management. 2. Correct hemoglobin to > 10 G. 3. Observe closely. Erick Ulrich M.D., M.S.P.H. Erick Ulrich MD May 02, 2018 18:24
--- NOTE | 2018-05-02 19:30 | NUR ---
HAND-OFF: Report given to DUSTIN DEL RIO RN.
[2018-05-02 20:00] VITALS: BP 129/75
[2018-05-03] VITALS: BP 124/70
--- NOTE | 2018-05-03 | Consultation ---
DATE OF CONSULTATION: 05/02/2018 INFECTIOUS DISEASE CONSULTATION CONSULTING PHYSICIAN: Lm Britt M.D. ATTENDING PHYSICIAN: Geo Almeida M.D. REFERRING PHYSICIAN: Romain Kerr M.D. REASON FOR CONSULTATION: Altered mental status, elevated white count, possible sepsis, possible urinary tract infection, history of human immunodeficiency virus, and possible infection. CHIEF COMPLAINT: The patient's chief complaint coming in to the hospital is thrombocytopenia, anemia, and altered mental status. HISTORY OF PRESENT ILLNESS: This is a 57-year-old female, who comes in to [facility] with what looks like altered mental status and dizziness. She is somewhat confused. She came in with also being poorly responsive. The patient presented with low hemoglobin and thrombocytopenia. She does have history of human immunodeficiency virus, but it is unclear what her T-cell count or viral load is. In addition, it is unclear what her anti-retroviral regimen is. I do know that she has been possibly on Truvada, but unclear what the other anti-retroviral medication is for the combination therapy. The patient also was noted to have a significant leukocytosis. I believe she has been on steroids and because of the leukocytosis and altered mental status, there is a concern for sepsis. Workup shows that she has a possible urinary tract infection. Neurology is also following and imaging was noted. I have ordered a CD4 and viral load at this time. The patient really cannot give any further history. She is able to answer questions, but not a very good historian. MAR was noted. Orders were noted. Notes were reviewed. Case was also discussed with the patient's family member at the bedside. I also discussed with the RN. The patient was placed empirically on Rocephin pending cultures. MAR was noted. Orders were noted. Notes and records were reviewed. REVIEW OF SYSTEMS: As discussed earlier, she came in with being what looks like disorientation, altered mental status, and dizziness. She came in with fatigue. She denies any fever or chills. Upon reviewing the log, it does not look like she had any fevers. The patient has generalized fatigue. No new focal weakness.HEAD AND NECK: Denies any headache, change in vision, or neck stiffness. CARDIAC: No chest pain or palpitations. GASTROINTESTINAL: No nausea, vomiting, abdominal pain, or diarrhea. GENITOURINARY: She has possible hematuria. NEUROLOGICAL: No seizures. As discussed, she came in with dizziness and what looks like upon reviewing the record, she also has confusion and disorientation. No rash or itching. Again, no headache or change in vision. EXTREMITIES: No extremity pain. PAST MEDICAL HISTORY: The patient's past medical history includes history of following. She has a past medical history of hypertension, past medical history of human immunodeficiency virus, unclear what the T-cell count or viral load status on the patient, unclear what type of anti-retroviral therapy. I noted that she was started on Truvada, but discontinued and it is unclear if she had another medication at this time. I also discussed with pharmacy. It is unclear what medications she was on. Other past medical history includes anemia, thrombocytopenia, and leukocytosis. She also came in with itchiness what looks like. No history of diabetes as mentioned. She has history of hypothyroidism. ALLERGIES: No known drug allergies. No antibiotic allergies. SOCIAL HISTORY: Negative for smoking, alcohol, or drug abuse. FAMILY HISTORY: Noncontributory. MEDICATIONS: Upon reviewing the MAR, she is on the following medications. She is on Neurontin or gabapentin. She is on Avapro, Synthroid, Colace, Pepcid, Neurontin, lactulose, prednisone 20 mg b.i.d. She is on Zofran, Benadryl, lactulose, Colace, Senokot, morphine, lidocaine, and lorazepam. She was given possibly a dose of Truvada, Neurontin, Avapro, Vigamox, and prednisone as discussed earlier. She is on Zofran, diphenhydramine, . I am going to start her on levothyroxine. Outside medications noted and reconciliated. The patient will be started on Rocephin 1 g IV q.24 hours. PHYSICAL EXAMINATION: VITAL SIGNS: Temperature is 98.7, pulse rate 83, respiratory rate 18, blood pressure 129/67, and saturation 97%. GENERAL: Alert, responsive, in no distress, not a very good historian. She has confusion and disorientation, but alert, no acute distress. HEAD AND NECK: Oral exam, no thrush. Eye exam, no icterus. Neck is supple. No JVD. Normocephalic. HEART: Regular. No obvious gallop or murmur. ABDOMEN: Soft. Positive bowel sounds. Nontender. LUNGS: Clear bilaterally. No rhonchi or rales. SKIN: No obvious rash anteriorly. MUSCULOSKELETAL: No effusions or septic arthritis. EXTREMITIES: Lower extremities are without cellulitis. PERIPHERAL VASCULAR: No evidence of cyanosis or gangrene. GENITOURINARY: No Chaney. No CVA tenderness. LINES: Lines sites without phlebitis. NEUROLOGIC: Intact and nonfocal. LABORATORY AND DIAGNOSTIC DATA: Laboratory data is as follows, white count remains elevated at 14.1 and hemoglobin was 7.4. White count on admission 14.1, hemoglobin 7.4, and platelet count is 19,000. Creatinine is 1.2. LFTs were noted. Creatinine 1.2. Imaging studies, I have ordered a chest x-ray. CT scan of the abdomen and pelvis and abdominal ultrasound were consistent with nephrolithiasis. CT scan of the head was negative. Bone marrow has been done, it is pending. Cultures, urine culture is pending. Urinalysis had positive nitrite, 2+ leukocyte esterase, 5 to 10 white blood cells, 40 to 60 rbc's, and many bacteria. ASSESSMENT AND PLAN: 1. The patient has what looks like disorientation, altered mental status, and encephalopathy. The patient's workup shows that she could be septic. Her heart rate has been as high as 112, but she has altered mental status with elevated white count. She could have urinary tract infection based on positive urinalysis. Rule out other opportunistic infections with history of human immunodeficiency virus. Unclear what the immune status of the patient is. The patient is being followed by Neurology. We will start the patient on Rocephin empirically to cover possible sepsis and urinary tract infection and blood and urine cultures have been ordered as is chest x-ray. Continue Rocephin pending workup. We will also check serology for Cryptococcus and West Nile virus. RPR was negative. Check CD4 viral load to see immune status of the patient. The patient may need a lumbar puncture. We will discuss with Neurology and primary team. It is unclear if an MRI will be ordered at this time. We will follow up on bone marrow to see if there is any opportunistic infection or malignancy. We will check LDH, also on lactic acid level to see if there is any support for sepsis and serology for cryptococcus antigen in addition to West Nile virus. Continue Rocephin now pending workup. 2. Human immunodeficiency virus, unclear immune status. We will check CD4 and viral load. We will try to see if we can find out what anti-retroviral therapy she was on. 3. Hypothyroidism. Continue thyroid supplementation. 4. Hypertension. Blood pressure treatment per primary. 5. Anemia. 6. Thrombocytopenia. 7. Elevated white count. 8. Recent steroids. 9. Altered mental status and confusion. Neurology followup. 10. Hematology/Oncology followup. Check bone marrow for thrombocytopenia and anemia workup. 11. No known drug allergies. 12. Social history is negative. 13. Family history is noncontributory. 14. Case was discussed with RN. 15. MAR was noted. 16. Case was discussed with Dr. Kerr. 17. Continue treatment per primary consultants. 18. We will follow up on the workup. Lm Britt M.D. DR: JOHNNY JOB#: [id number] CC:
--- NOTE | 2018-05-03 01:25 | NUR ---
NURSE NOTES: Received call from Eduard Pineda [employer]. [phone] No room available for transfer; will call back when room is available.
--- NOTE | 2018-05-03 03:46 | NUR ---
NURSE NOTES: Received pt. and report from Juliocesar Vera RN. Observed pt. asleep in bed with family at beside. conveyor monitor is in placed, IV site is intact, asymptomatic, and patent. Bed is in the lowest position and locked, call light within reach. No acute distress noted at this time. Will continue plan of care.
--- NOTE | 2018-05-03 03:50 | NUR ---
NURSE NOTES: Was endorsed that pt. does not want family to know about her HIV diagnosis.
--- NOTE | 2018-05-03 03:54 | NUR ---
HAND-OFF: Report given to My, RN. Patient in stable condition. Plan of care endorsed.
[2018-05-03 04:00] VITALS: BP 130/73
[2018-05-03 07:05] LABS: MEAN CORPUSCULAR VOLUME 93 FL (80-99); PLATELET COUNT 12 K/UL (150-450); RED BLOOD COUNT 2.26 M/UL (4.20-5.40); RED CELL DISTRIBUTION WIDTH 42.5 % (11.6-14.8); WHITE BLOOD COUNT 13.7 K/UL (4.8-10.8)
[2018-05-03 07:40] LABS: ALANINE AMINOTRANSFERASE 38 U/L (12-78); ALBUMIN 3.6 G/DL (3.4-5.0); ALBUMIN/GLOBULIN RATIO 0.9 (1.0-2.7); ALKALINE PHOSPHATASE 90 U/L (46-116); ANION GAP 11 mmol/L (5-15); ASPARTATE AMINO TRANSFERASE 99 U/L (15-37); BILIRUBIN,TOTAL 1.5 MG/DL (0.2-1.0); BLOOD UREA NITROGEN 25 mg/dL (7-18); CALCIUM 8.3 MG/DL (8.5-10.1); CARBON DIOXIDE 25 MMOL/L (21-32); CHLORIDE 104 MMOL/L (98-107); POTASSIUM 3.4 MMOL/L (3.5-5.1); SODIUM 140 MMOL/L (136-145)
[2018-05-03 07:44] LABS: BILIRUBIN,DIRECT 0.2 MG/DL (0.0-0.3)
--- NOTE | 2018-05-03 07:45 | NUR ---
NURSE NOTES: Received report from OTF [place]. Patient is resting in bed with family at the bedside. Patient is AAOx4. No signs of distress. Patient denies pain. Discussed plan of care. Addendum: 05/03/18 at 0819 by Margarito Seaman RN @8:18am: Will f/u with Dr. Julian about result of h/h.
[2018-05-03 07:48] LABS: HEMOGLOBIN 6.9 G/DL (12.0-16.0)
--- NOTE | 2018-05-03 07:48 | NUR ---
NURSE NOTES: Received Hgb of 6.9 from Deedee from lab. Will endorse to dayshift nurse.
[2018-05-03 08:00] VITALS: BP 142/80
--- NOTE | 2018-05-03 08:06 | NUR ---
NURSE NOTES: Contacted Dr. Julian regarding hgb of 6.9. Awaiting call back. Also endorsed it to dayshift nurse.
--- NOTE | 2018-05-03 08:08 | NUR ---
HAND-OFF: Report given to OTF Whatley.
[2018-05-03] MEDS: Lactulose 20gm/30ml UDC ORAL SCH ×3 (09:03→18:29)
[2018-05-03] MEDS: Docusate 100mg cap ORAL SCH ×2 (09:03→18:28)
--- NOTE | 2018-05-03 09:15 | NUR ---
NURSE NOTES: Called for f/u and left message to Dr. Julian regarding hgb of pt. 6.9 Awaiting for response.
--- NOTE | 2018-05-03 11:44 | NUR ---
CASE MANAGEMENT:REVIEW 05/03/18 SI: ENCEPHALOPATHY. ANEMIA 97.2 73 18 142/80 98% ON RA WBC+13.7 H/H-6.9/21.0 PLT-12 IS: IV ROCEPHIN Q24 AVAPRO PO QD SYNTHROID PO QAM PEPCID PO BID LACTULOSE PO TID PREDNISONE PO BID : TELEMETRY STATUS PLAN: SWALLOW EVAL
--- NOTE | 2018-05-03 11:53 | NUR ---
INSURANCE ALL CLINICALS AND REVIEWS FAXED TO: [facility] NCM:ALIZE P:[phone] F:[phone] TRK#[id number]
[2018-05-03 12:00] VITALS: BP 143/87
--- NOTE | 2018-05-03 12:05 | NUR ---
ST NOTE: BEDSIDE SWALLOW EVAL RECEIVED BEDSIDE SWALLOW EVAL ORDER CHART REVIEWED PRIOR THE EVALUATION. PT IS A 57-YEAR-OLD FEMALE WHO WAS ADMITTED DUE TO ANEMIA, PT WAS CHANGED HER MENTATION ON 04/30/18, AND CT HEAD WAS NEGATIVE. DYSPHAGIA RISK FACTORS: HTN, HIV+, MILD ENCEPHALOPATHY(PER EEG), DECREASED MENTATION. PLOF: PT RESIDES AT HOME. CURRENT STATUS: PT SEEN AT BEDSIDE IN LATE AM. ALERT, COOPERATIVE, FOLLOWS SIMPLE DIRECTIONS, SEEMS SLIGHTLY CONFUSED. PT WAS ABLE TO REMEMBER THE YEAR; WHEN ASKED PT "WHAT IS THE MONTH", SHE ONLY SAID" IT'S ALRIGHT" AND DID NOT ANSWER THE QUESTIONS. PER PT, FEELS WEAK. GIVEN PO TRIALS: THIN(CUP-SELF) AND PUREE(TSP) ONLY, PT REFUSED MASTICATED SOLID INITIAL IMPRESSION: SLOW BUT FUNCTIONAL LABIAL AND LINGUAL MOVEMENT, SLIGHTLY DECREASED LINGUAL STRENGTH. GOOD ORAL TRANSIT TIME AND OROPHARYNGEAL TRANSIT TIME GROSSLY FUNCTIONAL SWALLOWING WITH THIN AND PUREED. RECOMMENDATIONS: 1. CONTINUE MECH SOFT(CHOPPED) WITH THIN LIQUIDS DIET 2. ADVANCED DIET TOLERATED. 3. REFER PT TO PHYSICAL THERAPY 4. CONSIDER COGNITIVE EVAL D/W PT AND RNZAID. POSTED ASPIRATION PRECAUTIONS SIGN.
--- NOTE | 2018-05-03 13:55 | NUR ---
NURSE NOTES: Made second attempt to contact Dr. Lynn Lopez though his office number . Spoke with Jessica at 13:50. Awaiting for follow up call. Patient also stated at 1:50pm to not tell her family and friends about HIV diagnosis.
--- NOTE | 2018-05-03 14:30 | NUR ---
NURSE NOTES: Spoke with living supervisor Sammi VANESSA regarding Dr. Lynn Julian (f/u call).
--- NOTE | 2018-05-03 15:30 | NUR ---
NURSE NOTES: Called Dr. Kerr and ordered to transfuse 1unit PRBC.
--- NOTE | 2018-05-03 15:41 | NUR ---
TRANSFER UPDATE EDITORIAL MANAGER CALLED [facility] THIS MORNING AND AGAIN AT THIS TIME ELOISA CONFIRMED PATIENT IS ON THE LIST AND HAS CLEARED FINANCIALLY BUT NO BED AVAILABLE ELOISA ALSO MENTIONED PATIENT'S SISTER CALLED THE TRANSFER CENTER AND HE EXPLAINED TO HER THAT PATIENT WAS CONSIDERED A LOW PRIORITY FOR TRANSFER BUT WILL REMAIN ON THE LIST
[2018-05-03 16:00] VITALS: BP 136/72
[2018-05-03] MEDS ORDERED: Tubing IV Secondary IV ONE (16:06)
[2018-05-03] MEDS ORDERED: NS 500ML ONE (16:06)
[2018-05-03] MEDS ORDERED: Tubing Blood Filter IV ONE (16:06)
[2018-05-03] MEDS: cefTRIAXone 1 GM in D5W 50 ML IVPB SCH (16:15)
--- NOTE | 2018-05-03 16:52 | Pulmonology Progress Note ---
Assessment/Plan Assessment/Plan Pulmonary Progress Note Assessment/Plan Assessment/Plan IMPRESSION HIV Anemia/Thrombocytopenia - await BM result itchyness anemia, more altered today [employer] called, CT head negative AMS, probable encephalopathy, less confused today ID following, now on Rocephin PLAN Hematology following, TFN PRN - TF for HB 6.9 today ID following Neuro following Family requesting TF to [facility] BM result pending impression, plan, and exam edited and reviewed in detail care discussed with RN Subjective Allergies: Coded Allergies: No Known Allergies (Unverified , 04/18/13) Subjective findings noted Objective Vital Signs Noted Laboratory Tests 04/27/18 09:15: White Blood Count 9.6, Red Blood Count 2.67L, Hemoglobin 7.8#L, Hematocrit 22.5L , Mean Corpuscular Volume 84, Mean Corpuscular Hemoglobin 29.4, Mean Corpuscular Hemoglobin Concent 34.9, Red Cell Distribution Width 24.5H, Platelet Count 20L, Mean Platelet Volume 13.2H, Neutrophils (%) (Auto) , Lymphocytes (%) (Auto) , Monocytes (%) (Auto) , Eosinophils (%) (Auto) , Basophils (%) (Auto) , Differential Total Cells Counted 100, Neutrophils % ( Manual) 62, Lymphocytes % (Manual) 26, Monocytes % (Manual) 11H, Eosinophils % ( Manual) 0, Basophils % (Manual) 0, Metamyelocytes % 1H, Band Neutrophils 0, Nucleated Red Blood Cells 37, Platelet Estimate DecreasedL, Platelet Morphology Normal, Polychromasia 2+, Hypochromasia 2+, Poikilocytosis 1+, Anisocytosis 3+, Spherocytes 2+, Schistocytes 1+, Reticulocyte Count 8.0H, Hemoglobin A [Pending] , Hemoglobin A2 [Pending], Hemoglobin C [Pending], Hemoglobin F () [Pending ], Hemoglobin S [Pending], Variant Hemoglobin [Pending], Hemoglobin Electrophoresis Interp [Pending], Hemoglobin Interpretation [Pending], Hemoglobin Solubility [Pending], Haptoglobin [Pending], Prothrombin Time 11.4, Prothromb Time International Ratio 1.1, Total Bilirubin 2.1H, Direct Bilirubin 0.4H, Lactate Dehydrogenase 1780H, Rheumatoid Factor Screen [Pending], Anti- Nuclear Antibody Screen [Pending] Height (Feet): 5 Height (Inches): 2.00 Weight (Pounds): 229 Objective WDWN NAD clear breath sounds bilaterally without rhonchi or wheeze [id number] without MRG NABS nontender no HSM no CCE nonfocal Subjective ROS Limited/Unobtainable: No Allergies: Coded Allergies: No Known Allergies (Unverified , 04/18/13) Objective Last 24 Hour Vital Signs Date Time Temp Pulse Resp B/P (MAP) Pulse Ox O2 Delivery O2 Flow Rate FiO2 05/03/18 12:00 97.9 79 18 143/87 (105) 100 05/03/18 11:40 83 05/03/18 09:03 142/80 05/03/18 09:00 Room Air 05/03/18 08:00 97.2 73 18 142/80 (100) 98 05/03/18 07:42 73 05/03/18 04:00 76 05/03/18 04:00 98.1 76 18 130/73 (92) 98 05/03/18 00:00 98.0 82 20 124/70 (88) 97 05/03/18 00:00 78 05/02/18 21:00 Room Air 05/02/18 20:00 113 05/02/18 20:00 98.0 93 18 129/75 (93) 97 Intake and Output 05/02/18 05/03/18 19:00 07:00 Intake Total 120 ml 470 ml Output Total 400 ml Balance 120 ml 70 ml Intake Oral 120 ml 120 ml Blood Product 350 ml Output Urine Total 400 ml # Voids 2 1 # Bowel Movements 2 4 Microbiology Date/Time Source Procedure Growth Status 04/30/18 18:30 Urine,Clean Catch Urine Culture - Preliminary Gram Positive Cocci Resulted Laboratory Tests 05/02/18 17:30: White Blood Count 13.9H, Lymphocytes 13, Nucleated Red Blood Cells 45H, Lactic Acid Level 2.20H, Lactate Dehydrogenase 3558H, Absolute Lymphocytes (Cell Immunity 1.8, Percent CD3 Cells 62.1, Absolute CD3 Count 1118, Percent CD4 Cells 5.0L, Absolute CD4 Count 90L, T-Lymphocyte CD4/CD8 Ratio 0.09L, Percent CD8 Cells 54.8H, Absolute CD8 Count 986H, Coccidioides Antibody (Comp Fix) [ Pending], West Nile Virus IgG Antibody [Pending], West Nile Virus IgM Antibody [ Pending], HIV-1 RNA (PCR) log10 Value [Pending], HIV-1 RNA Ultraquantitative ( PCR) [Pending] 05/03/18 05:30: White Blood Count 13.7H, Nucleated Red Blood Cells 47, Red Blood Count 2.26L, Hemoglobin 6.9*L, Hematocrit 21.0L, Mean Corpuscular Volume 93, Mean Corpuscular Hemoglobin 30.6, Mean Corpuscular Hemoglobin Concent 32.9, Red Cell Distribution Width 42.5H, Platelet Count 12L, Mean Platelet Volume 3.9L, Neutrophils (%) (Auto) , Lymphocytes (%) (Auto) , Monocytes (%) (Auto) , Eosinophils (%) (Auto) , Basophils (%) (Auto) , Differential Total Cells Counted 100, Neutrophils % (Manual) 69, Lymphocytes % (Manual) 19L, Monocytes % (Manual) 11H, Eosinophils % (Manual) 0, Basophils % (Manual) 0, Band Neutrophils 1, Platelet Estimate DecreasedL, Platelet Morphology Normal, Polychromasia 3+, Hypochromasia 2+, Anisocytosis 3+, Schistocytes 2+, Sodium Level 140, Potassium Level 3.4L, Chloride Level 104, Carbon Dioxide Level 25, Anion Gap 11, Blood Urea Nitrogen 25H, Creatinine 1.0, Estimat Glomerular Filtration Rate > 60, Glucose Level 154H, Calcium Level 8.3L, Total Bilirubin 1.5H, Direct Bilirubin 0.2, Aspartate Amino Transf (AST/SGOT) 99H, Alanine Aminotransferase (ALT/SGPT) 38, Alkaline Phosphatase 90, Total Protein 7.7, Albumin 3.6, Globulin 4.1, Albumin/Globulin Ratio 0.9L Current Medications Medications (Trade) Dose Ordered Sig/Ellen Route PRN Reason Start Time Stop Time Status Last Admin Dose Admin Ceftriaxone Sodium 1 gm/ Dextrose 50 ml @ 100 mls/hr Q24H IVPB 05/02/18 16:00 05/09/18 15:59 05/03/18 16:15 Diphenhydramine HCl (Benadryl) 25 mg Q6H PRN ORAL Itching 04/30/18 14:06 05/22/18 14:05 Docusate Sodium (Colace) 100 mg TWICE A DAY ORAL 04/30/18 18:00 1/22/19 17:59 05/03/18 09:03 Famotidine (Pepcid) 20 mg BID ORAL 04/30/18 18:00 05/23/18 08:59 05/03/18 09:02 Gabapentin (Neurontin) 300 mg Q8H PRN ORAL Neurological pain 05/02/18 11:00 06/01/18 10:59 Irbesartan (Avapro) 75 mg DAILY ORAL 05/01/18 09:00 05/23/18 08:59 05/03/18 09:03 Lactulose (Cephulac) 30 gm THREE TIMES A DAY ORAL 04/30/18 18:00 05/29/18 17:59 05/03/18 09:03 Levothyroxine Sodium (Synthroid) 112 mcg ACBREAKFAST ORAL 05/01/18 06:30 05/23/18 06:29 05/03/18 06:12 Ondansetron HCl (Zofran) 4 mg Q6H PRN IVP Nausea & Vomiting 04/30/18 16:15 05/30/18 16:14 Prednisone (predniSONE) 20 mg BID ORAL 04/30/18 18:00 05/23/18 08:59 05/03/18 09:03 Romain Kerr MD May 03, 2018 16:52
--- NOTE | 2018-05-03 17:42 | Infectious Diseases Prog Note ---
Assessment/Plan Assessment/Plan ASSESSMENT AND PLAN: 1. possible sepsis, leukocytosis, ams, ? gram + uti, ? OI, thrombocytopenia/ anemia, elevated LDH - continue ceftriaxone and start ampicillin - f/u on cultures and serology - check chest x-ray - d/w neurology - MRI to be ordered, LP when thrombocytopenia better 2. anemia, thrombocytopenia, elevated LDH - bone marrow path reviewed - ? lymphoma and leukemia - hem/onc f/u 3. hiv and aids - cd4 is 90, viral load pending - start pcp and mac prophylaxis with daily bactrim and weekly azithromycin - unknown anti-retroviral treatment - will need to get records, d/w nursing, patient poor historian 4. Hypertension and hypothyroidism - tx per primary 5. Anemia. 6. Thrombocytopenia. 7. Elevated white count 8. Recent steroids. 9. Altered mental status and confusion. Neurology followup. 10. hematology work up in process 11. No known drug allergies. 12. Social history is negative. 13. Family history is noncontributory. 14. Case was discussed with RN. 15. MAR was noted. 16. Case was discussed with Dr. Kerr and Dr. Ulrich 17. Continue treatment per primary consultants. Subjective Constitutional: Denies: fever HEENT: Denies: congestion Respiratory: Denies: shortness of breath Cardiovascular: Denies: chest pain Gastrointestinal/Abdominal: Denies: nausea, vomiting, diarrhea Genitourinary: Reports: other - no valencia Neurologic: Reports: confusion Skin: Denies: rash Hematologic: Denies: bleeding Musculoskeletal: Denies: pain Allergies: Coded Allergies: No Known Allergies (Unverified , 04/18/13) Objective Vital Signs Last 24 Hour Vital Signs Date Time Temp Pulse Resp B/P (MAP) Pulse Ox O2 Delivery O2 Flow Rate FiO2 05/03/18 12:00 97.9 79 18 143/87 (105) 100 05/03/18 11:40 83 05/03/18 09:03 142/80 05/03/18 09:00 Room Air 05/03/18 08:00 97.2 73 18 142/80 (100) 98 05/03/18 07:42 73 05/03/18 04:00 76 05/03/18 04:00 98.1 76 18 130/73 (92) 98 05/03/18 00:00 98.0 82 20 124/70 (88) 97 05/03/18 00:00 78 05/02/18 21:00 Room Air 05/02/18 20:00 113 05/02/18 20:00 98.0 93 18 129/75 (93) 97 Height (Feet): 5 Height (Inches): 2.00 Weight (Pounds): 231 General Appearance: no acute distress HEENT: normocephalic, atraumatic, anicteric, mucous membranes moist Respiratory/Chest: lungs clear, normal breath sounds, no respiratory distress, no accessory muscle use Cardiovascular: normal rate, regular rhythm, no gallop/murmur, no JVD Abdomen: normal bowel sounds, soft, non tender, no organomegaly, non distended Genitourinary: other - no valencia Extremities: no cyanosis Skin: no rash Neurologic/Psychiatric: food sanitarian II-XII grossly normal, alert, responsive Lymphatic: no neck adenopathy Musculoskeletal: no effusion Objective CT scan abdomen and pelvis: IMPRESSION: 1. Distended appendix measuring about 1 cm. No surrounding inflammatory changes. 2. Bilateral nephrolithiasis. 3. Avascular necrosis of the hips. Microbiology Date/Time Source Procedure Growth Status 04/30/18 18:30 Urine,Clean Catch Urine Culture - Preliminary Gram Positive Cocci Resulted Laboratory Tests Test 05/02/18 17:30 05/03/18 05:30 White Blood Count 13.9 x10E3/uL (3.4-10.8) H 13.7 K/UL (4.8-10.8) H Lymphocytes 13 % (Not Estab.) Nucleated Red Blood Cells 45 % (0 - 0) H 47 /100 WBC Lactic Acid Level 2.20 mmol/L (0.4-2.0) H Lactate Dehydrogenase 3558 U/L (81-234) H Absolute Lymphocytes (Cell Immunity 1.8 x10E3/uL (0.7-3.1) Percent CD3 Cells 62.1 % (57.5-86.2) Absolute CD3 Count 1118 /uL (622-2402) Percent CD4 Cells 5.0 % (30.8-58.5) L Absolute CD4 Count 90 /uL (359-1519) L T-Lymphocyte CD4/CD8 Ratio 0.09 (0.92-3.72) L Percent CD8 Cells 54.8 % (12.0-35.5) H Absolute CD8 Count 986 /uL (109-897) H Coccidioides Antibody (Comp Fix) Pending West Nile Virus IgG Antibody Pending West Nile Virus IgM Antibody Pending HIV-1 RNA (PCR) log10 Value Pending HIV-1 RNA Ultraquantitative (PCR) Pending Red Blood Count 2.26 M/UL (4.20-5.40) L Hemoglobin 6.9 G/DL (12.0-16.0) *L Hematocrit 21.0 % (37.0-47.0) L Mean Corpuscular Volume 93 FL (80-99) Mean Corpuscular Hemoglobin 30.6 PG (27.0-31.0) Mean Corpuscular Hemoglobin Concent 32.9 G/DL (32.0-36.0) Red Cell Distribution Width 42.5 % (11.6-14.8) H Platelet Count 12 K/UL (150-450) L Mean Platelet Volume 3.9 FL (6.5-10.1) L Neutrophils (%) (Auto) % (45.0-75.0) Lymphocytes (%) (Auto) % (20.0-45.0) Monocytes (%) (Auto) % (1.0-10.0) Eosinophils (%) (Auto) % (0.0-3.0) Basophils (%) (Auto) % (0.0-2.0) Differential Total Cells Counted 100 Neutrophils % (Manual) 69 % (45-75) Lymphocytes % (Manual) 19 % (20-45) L Monocytes % (Manual) 11 % (1-10) H Eosinophils % (Manual) 0 % (0-3) Basophils % (Manual) 0 % (0-2) Band Neutrophils 1 % (0-8) Platelet Estimate Decreased L Platelet Morphology Normal Polychromasia 3+ Hypochromasia 2+ Anisocytosis 3+ Schistocytes 2+ Sodium Level 140 MMOL/L (136-145) Potassium Level 3.4 MMOL/L (3.5-5.1) L Chloride Level 104 MMOL/L (98-107) Carbon Dioxide Level 25 MMOL/L (21-32) Anion Gap 11 mmol/L (5-15) Blood Urea Nitrogen 25 mg/dL (7-18) H Creatinine 1.0 MG/DL (0.55-1.30) Estimat Glomerular Filtration Rate > 60 mL/min (>60) Glucose Level 154 MG/DL (74-106) H Calcium Level 8.3 MG/DL (8.5-10.1) L Total Bilirubin 1.5 MG/DL (0.2-1.0) H Direct Bilirubin 0.2 MG/DL (0.0-0.3) Aspartate Amino Transf (AST/SGOT) 99 U/L (15-37) H Alanine Aminotransferase (ALT/SGPT) 38 U/L (12-78) Alkaline Phosphatase 90 U/L (46-116) Total Protein 7.7 G/DL (6.4-8.2) Albumin 3.6 G/DL (3.4-5.0) Globulin 4.1 g/dL Albumin/Globulin Ratio 0.9 (1.0-2.7) L Current Medications Medications (Trade) Dose Ordered Sig/Ellen Route PRN Reason Start Time Stop Time Status Last Admin Dose Admin Ceftriaxone Sodium 1 gm/ Dextrose 50 ml @ 100 mls/hr Q24H IVPB 05/02/18 16:00 05/09/18 15:59 05/03/18 16:15 Diphenhydramine HCl (Benadryl) 25 mg Q6H PRN ORAL Itching 04/30/18 14:06 05/22/18 14:05 Docusate Sodium (Colace) 100 mg TWICE A DAY ORAL 04/30/18 18:00 05/29/18 17:59 05/03/18 09:03 Famotidine (Pepcid) 20 mg BID ORAL 04/30/18 18:00 05/23/18 08:59 05/03/18 09:02 Gabapentin (Neurontin) 300 mg Q8H PRN ORAL Neurological pain 05/02/18 11:00 06/01/18 10:59 Irbesartan (Avapro) 75 mg DAILY ORAL 05/01/18 09:00 05/23/18 08:59 05/03/18 09:03 Lactulose (Cephulac) 30 gm THREE TIMES A DAY ORAL 04/30/18 18:00 05/29/18 17:59 05/03/18 09:03 Levothyroxine Sodium (Synthroid) 112 mcg ACBREAKFAST ORAL 05/01/18 06:30 05/23/18 06:29 12/27/18 06:12 Ondansetron HCl (Zofran) 4 mg Q6H PRN IVP Nausea & Vomiting 04/30/18 16:15 05/30/18 16:14 Prednisone (predniSONE) 20 mg BID ORAL 04/30/18 18:00 05/23/18 08:59 05/03/18 09:03 Lm Britt MD May 03, 2018 17:42
[2018-05-03] MEDS ORDERED: Azithromycin 600mg Tab ORAL SCH (18:00)
[2018-05-03] MEDS ORDERED: Bactrim-DS 1 tab ORAL SCH (18:00)
--- NOTE | 2018-05-03 18:40 | NUR ---
NURSE NOTES: NURSE NOTES: Dr. Ulrich at bedside and the pt. sister Meaghan at bedside also. Dr. Ulrich doing his assessment and at same time talking and explaining to the pt. sister plan of care. Gave privacy.
--- NOTE | 2018-05-03 18:55 | Neurology Progress Note ---
Interim History Interim History Interim History Ms. Guzman feels better. She feels that her mind is clearer, but still a little "fuzzy." She has had no further episodes of loss of consciousness or altered consciousness. She is still confused and disoriented. She is still encephalopathic. She continues to be cognitively impoverished. She continues to be in bed all day except for being up once for about an hour earlier today. She has not noticed any new neurologic symptoms. Review of Systems Neuro Review of Systems Benign. Objective Physical Exam Last Vital Signs Date Time Temp Pulse Resp B/P (MAP) Pulse Ox O2 Delivery O2 Flow Rate FiO2 05/03/18 16:00 97.9 80 18 136/72 (93) 100 05/03/18 09:00 Room Air 04/26/18 14:57 2.0 Laboratory Tests Test 05/03/18 05:30 White Blood Count 13.7 K/UL (4.8-10.8) H Red Blood Count 2.26 M/UL (4.20-5.40) L Hemoglobin 6.9 G/DL (12.0-16.0) *L Hematocrit 21.0 % (37.0-47.0) L Mean Corpuscular Volume 93 FL (80-99) Mean Corpuscular Hemoglobin 30.6 PG (27.0-31.0) Mean Corpuscular Hemoglobin Concent 32.9 G/DL (32.0-36.0) Red Cell Distribution Width 42.5 % (11.6-14.8) H Platelet Count 12 K/UL (150-450) L Mean Platelet Volume 3.9 FL (6.5-10.1) L Neutrophils (%) (Auto) % (45.0-75.0) Lymphocytes (%) (Auto) % (20.0-45.0) Monocytes (%) (Auto) % (1.0-10.0) Eosinophils (%) (Auto) % (0.0-3.0) Basophils (%) (Auto) % (0.0-2.0) Differential Total Cells Counted 100 Neutrophils % (Manual) 69 % (45-75) Lymphocytes % (Manual) 19 % (20-45) L Monocytes % (Manual) 11 % (1-10) H Eosinophils % (Manual) 0 % (0-3) Basophils % (Manual) 0 % (0-2) Band Neutrophils 1 % (0-8) Nucleated Red Blood Cells 47 /100 WBC Platelet Estimate Decreased L Platelet Morphology Normal Polychromasia 3+ Hypochromasia 2+ Anisocytosis 3+ Schistocytes 2+ Sodium Level 140 MMOL/L (136-145) Potassium Level 3.4 MMOL/L (3.5-5.1) L Chloride Level 104 MMOL/L (98-107) Carbon Dioxide Level 25 MMOL/L (21-32) Anion Gap 11 mmol/L (5-15) Blood Urea Nitrogen 25 mg/dL (7-18) H Creatinine 1.0 MG/DL (0.55-1.30) Estimat Glomerular Filtration Rate > 60 mL/min (>60) Glucose Level 154 MG/DL (74-106) H Calcium Level 8.3 MG/DL (8.5-10.1) L Total Bilirubin 1.5 MG/DL (0.2-1.0) H Direct Bilirubin 0.2 MG/DL (0.0-0.3) Aspartate Amino Transf (AST/SGOT) 99 U/L (15-37) H Alanine Aminotransferase (ALT/SGPT) 38 U/L (12-78) Alkaline Phosphatase 90 U/L (46-116) Total Protein 7.7 G/DL (6.4-8.2) Albumin 3.6 G/DL (3.4-5.0) Globulin 4.1 g/dL Albumin/Globulin Ratio 0.9 (1.0-2.7) L Neurologic Exam Objective PHYSICAL EXAMINATION: GENERAL: She is a well-developed, well-nourished, slightly obese black lady, lying in bed, in no acute distress. HEAD: Normocephalic and atraumatic. EENT: Examination benign. NECK: No neck rigidity was observed. NEUROLOGIC EXAMINATION: MENTAL STATUS EXAMINATION: She was awake and alert. She was oriented to self, [facility] and April. She was able to recall 3/3 words immediately, but could only remember 1/3 in 1 minute and 3 minutes. She was able to remember Presidents Trump through [place] only. Her mathematical skills were impaired. Her visuospatial function was also impaired. SPEECH: She had no dysarthria. LANGUAGE: She had word-finding problems during spontaneous speech and also had problems with comprehension. CRANIAL NERVE EXAMINATION: II: The visual king were intact on confrontation testing. III, IV & : External ocular movements were full and the pupils 3 mm in diameter, equal, round, regular, and reactive to light. V: She had normal facial sensations, and the temporales, masseters, and pterygoids functioned normally. VII: She had normal facial expressions and no facial asymmetry. VIII: She was able to hear well bilaterally and had no nystagmus. IX: The palate moved symmetrically on phonation. X: She had no hoarseness of voice. XI: The sternocleidomastoids and trapezii functioned normally. XII: The tongue was in the midline without any fasciculations or atrophy. MOTOR SYSTEM: The tone was normal in all four extremities. Examination of muscle mass revealed no focal wasting. Examination of power revealed G 5/5 except for G 4-/5 in the iliopsoas muscles bilaterally. SENSORY EXAMINATION: She had intact sensations to light touch. REFLEXES: Trace+ and bilaterally symmetrical at the biceps, triceps, brachioradialis, and knees; zero at both ankles. The plantar responses were flexor bilaterally. COORDINATION: She performed well on [id number] testing. STANCE & GAIT: Could not be tested. Impression/Recommendations Diagnostic Impression 1. Ms. Zoraida Guzman is a 57-year-old, right-handed, black lady, with past history of hypertension and HIV disease, who in the first week of April developed flu-like syndrome. This was followed by dizziness, lightheadedness, and a sensation that she may faint. She was hospitalized for these symptoms on 04/22/2018, and was found to be significantly anemic and thrombocytopenic. She was treated with blood transfusions and improved. Then on the morning of , she suddenly became unresponsive. Her hemoglobin had dropped to 6.8 G. Since then, she was transfused with packed red blood cells and was improving. 2. She feels better. She feels that her mind is clearer, but still a little "fuzzy." She has had no further episodes of loss of consciousness or altered consciousness. She is still confused and disoriented. She is still encephalopathic. She continues to be cognitively impoverished. She continues to be in bed all day except for being up once for about an hour earlier today. She has not noticed any new neurologic symptoms. 3. On neurological examination, at this time, she does have problems with orientation, recent and remote memory, visuospatial function, higher cognitive function, and language. She however does not demonstrate any focal or lateralizing neurological findings. She does have proximal lower extremity weakness. Her deep tendon reflexes are globally diminished. 4. The CT scan of the brain without contrast is benign. 5. Her latest laboratory data on my initial evaluation revealed that her WBC count is elevated to 12,000, her hemoglobin has dropped to 6.8 G, and her platelet count is down at 27,000. Her chemistry panel reveals that BUN is elevated to 26 and her glucose is elevated at 194. Her liver function tests from when she came in reveal that her total bilirubin is elevated at 1.7 and AST is elevated at 68. Her B12 is normal at 975, folate is normal at 13.8, and TSH is normal at 3.43. Her ammonia is also normal at 21. 6. The patient's history, neurological examination, laboratory data, and imaging studies are most compatible with an encephalopathy most probably related to her significant anemia and possibly her infectious process. The encephalopathy has stabilized and is not improving further. Recommendations 1. Continue present management. 2. Correct hemoglobin to > 10 G. 3. Brain MRI to evaluate for CARE DIRECTOR pathology in immunocompromised patient. 3. Observe closely. Erick Ulrich M.D., M.S.P.H. Erick Ulrich MD May 03, 2018 18:55
--- NOTE | 2018-05-03 18:56 | NUR ---
NURSE NOTES: 18:00 Called blood bank about 1 PRBC ORDER. Spoke with Brianne and states will f/u with order. 18:55 Second call to blood bank about 1 PRBC order. Spoke with Maria A. Blood is being prepared for patient. Expecting a call in about ten minutes about status of blood product.
[2018-05-03] MEDS ORDERED: Gadavist 7.5mMol/7.5ml vial IV PRN (19:00)
--- NOTE | 2018-05-03 19:31 | General Progress Note ---
Assessment/Plan Assessment/Plan # Severe thrombocytopenia - is most likely related to HIV poorly controlled, but will need to r/o malignancy as well as well as infection. 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, ferritin is elevated, tibc low --> w/u has been reviewed, some hemolysis mild is noted --> LDH elevated 1322-->1708-->3404 --> trend 7.5--> 6.8-->7.4 --> Hgb goal >7, transfuse prn --> treat underlying hiv and OIs --> IS ON PREDNISONE 20mg po bid --> pending a LP once thrombocytopenia better # Leukocytosis - potentially related to steroids --> monitor and trend wbc for improvement --> ID service following --> on abx as needed # HIV (human immunodeficiency virus infection) poorly controlled --> continue hiv meds --> appreciate id consult --> CD4 count of 90 --> restarted on hiv meds # Bilateral nephrolithiasis --> appreciate renal recs # Dizziness and hematuria r/o kidney stones. --> ivf has been given # Hypomagnesemia -- replete with mag Greatly appreciate consultation! Subjective Constitutional: Denies: no symptoms, chills, diaphoresis, fever, malaise, weakness, other Cardiovascular: Denies: no symptoms, chest pain, edema, irregular heart rate, lightheadedness, palpitations, syncope, other Respiratory: Denies: no symptoms, cough, orthopnea, shortness of breath, SOB with excertion, SOB at rest, sputum, stridor, wheezing, other Gastrointestinal/Abdominal: Denies: no symptoms, abdomen distended, abdominal pain, black stools, tarry stools, blood in stool, constipated, diarrhea, difficulty swallowing, nausea, poor appetite, poor fluid intake, rectal bleeding , vomiting, other Genitourinary: Denies: no symptoms, burning, discharge, frequency, flank pain, hematuria, incontinence, pain, urgency, other Neurologic/Psychiatric: Denies: no symptoms, anxiety, depressed, emotional problems, headache, numbness, paresthesia, pre-existing deficit, seizure, tingling, tremors, weakness, other Endocrine: Denies: no symptoms, excessive sweating, flushing, intolerance to cold, intolerance to heat, increased hunger, increased thirst, increased urine, unexplained weight gain, unexplained weight loss, other Hematologic/Lymphatic: Denies: no symptoms, anemia, easy bleeding, easy bruising, other Allergies: Coded Allergies: No Known Allergies (Unverified , 04/18/13) Subjective Biopsy perfromed 04/26. S/P blood tx, CBC reviewed 04/30: awaiting biopsy results, pending 05/01: results still pending, less ams, less encephalopathic, no seizures 05/02: reviewed, ldh remains high, seen by ID 05/03: discussed case with path, awaiting hematopathology eval, igG set ordered Objective Last 24 Hour Vital Signs Date Time Temp Pulse Resp B/P (MAP) Pulse Ox O2 Delivery O2 Flow Rate FiO2 05/03/18 16:00 97.9 80 18 136/72 (93) 100 05/03/18 15:36 79 05/03/18 12:00 97.9 79 18 143/87 (105) 100 05/03/18 11:40 83 05/03/18 09:03 142/80 05/03/18 09:00 Room Air 05/03/18 08:00 97.2 73 18 142/80 (100) 98 05/03/18 07:42 73 05/03/18 04:00 76 05/03/18 04:00 98.1 76 18 130/73 (92) 98 05/03/18 00:00 98.0 82 20 124/70 (88) 97 05/03/18 00:00 78 05/02/18 21:00 Room Air 05/02/18 20:00 113 05/02/18 20:00 98.0 93 18 129/75 (93) 97 Intake and Output 05/02/18 05/03/18 19:00 07:00 Intake Total 120 ml 470 ml Output Total 400 ml Balance 120 ml 70 ml Intake Oral 120 ml 120 ml Blood Product 350 ml Output Urine Total 400 ml # Voids 2 1 # Bowel Movements 2 4 Laboratory Tests 05/03/18 05:30: White Blood Count 13.7H, Red Blood Count 2.26L, Hemoglobin 6.9*L, Hematocrit 21.0L, Mean Corpuscular Volume 93, Mean Corpuscular Hemoglobin 30.6, Mean Corpuscular Hemoglobin Concent 32.9, Red Cell Distribution Width 42.5H, Platelet Count 12L, Mean Platelet Volume 3.9L, Neutrophils (%) (Auto) , Lymphocytes (%) (Auto) , Monocytes (%) (Auto) , Eosinophils (%) (Auto) , Basophils (%) (Auto) , Differential Total Cells Counted 100, Neutrophils % ( Manual) 69, Lymphocytes % (Manual) 19L, Monocytes % (Manual) 11H, Eosinophils % (Manual) 0, Basophils % (Manual) 0, Band Neutrophils 1, Nucleated Red Blood Cells 47, Platelet Estimate DecreasedL, Platelet Morphology Normal, Polychromasia 3+, Hypochromasia 2+, Anisocytosis 3+, Schistocytes 2+, Sodium Level 140, Potassium Level 3.4L, Chloride Level 104, Carbon Dioxide Level 25, Anion Gap 11, Blood Urea Nitrogen 25H, Creatinine 1.0, Estimat Glomerular Filtration Rate > 60, Glucose Level 154H, Calcium Level 8.3L, Total Bilirubin 1.5H, Direct Bilirubin 0.2, Aspartate Amino Transf (AST/SGOT) 99H, Alanine Aminotransferase (ALT/SGPT) 38, Alkaline Phosphatase 90, Total Protein 7.7, Albumin 3.6, Globulin 4.1, Albumin/Globulin Ratio 0.9L Height (Feet): 5 Height (Inches): 2.00 Weight (Pounds): 231 Objective General Appearance: alert EENT: TMs normal Neck: normal inspection Cardiovascular: regular rhythm Respiratory/Chest: no respiratory distress Abdomen: no organomegaly Extremities: non-tender Edema: mild edema Skin: warm/dry Antony Julian MD May 03, 2018 19:31
--- NOTE | 2018-05-03 19:58 | NUR ---
NURSE NOTES: Started blood transfusion at 1945. No a/r noted. Will cont. to monitor.
[2018-05-03 20:00] VITALS: BP 135/91
--- NOTE | 2018-05-03 20:35 | NUR ---
NURSE NOTES: Received pt. and report from [facility]. Pt. is resting in bed with family member at bedside. color television console monitor is in placed, IV site intact, asymptomatic, and patent. Bed is in the lowest position and locked and call light within reach. No acute distress noted at this time. Pt. is currently receiving blood transfusion. No adverse reacted noted. Will continue plan of care.
--- NOTE | 2018-05-03 20:47 | NUR ---
HAND-OFF: Report given to Lamar VANESSA. Pt. remain stable. Cont. with blood transfusion. No a/r noted. Tolerating well.
--- NOTE | 2018-05-03 23:20 | NUR ---
NURSE NOTES: Completed blood transfusion at 2315. Vital signs are stable. No adverse reaction noted.
[2018-05-04] VITALS: BP 135/76
[2018-05-04 04:00] VITALS: BP 134/73
--- NOTE | 2018-05-04 07:38 | NUR ---
HAND-OFF: Report given to [facility] Ferreira. Patient is in stable condition.
[2018-05-04 08:00] VITALS: BP 119/80
[2018-05-04] MEDS: Docusate 100mg cap ORAL SCH ×2 (08:13→18:38)
[2018-05-04] MEDS: Lactulose 20gm/30ml UDC ORAL SCH ×3 (08:13→18:00)
--- NOTE | 2018-05-04 08:24 | NUR ---
NURSE NOTES: per dr armstrong, patient can be transfer to [place]. will take note and carry out.
[2018-05-04 08:41] LABS: HEMATOCRIT 24.6 % (37.0-47.0); MEAN CORPUSCULAR VOLUME 94 FL (80-99); PLATELET COUNT 22 K/UL (150-450); RED BLOOD COUNT 2.62 M/UL (4.20-5.40); WHITE BLOOD COUNT 17.1 K/UL (4.8-10.8)
--- NOTE | 2018-05-04 09:47 | NUR ---
NURSE NOTES: dr johnston made aware that 24 hrs urine collection was not started yesterday. new order for 24 hr urine collection will be ordered.
[2018-05-04] MEDS ORDERED: Gadavist 7.5mMol/7.5ml vial IV PRN (10:00)
--- NOTE | 2018-05-04 10:16 | NUR ---
CASE MANAGEMENT:REVIEW 05/04/18 SI: ENCEPHALOPATHY. ANEMIA. UTI 97.0 74 18 119/80 99% ON RA WBC+17.1 H/H-8.0/24.6 PLT-22 IS: IV ROCEPHIN Q24 BACTRIM PO Q24 AZITHROMYCIN QWEEK AMPICILLIN PO Q6HRS AVAPRO PO QD SYNTHROID PO QAM PEPCID PO BID LACTULOSE PO TID PREDNISONE PO BID : TRANSFERRED FROM TELEMETRY TO MED/SURG 3 EAST PLAN: PASSED SWALLOW EVAL S/P 1 UNIT PRBC'S YESTERDAY FOR A TOTAL OF 4 UNITS SINCE ADMISSIONS
--- NOTE | 2018-05-04 10:21 | NUR ---
INSURANCE ALL CLINICALS AND REVIEWS FAXED TO: [employer] NCM:ALIZE P:[phone] F:[phone] TRK#[id number]
--- NOTE | 2018-05-04 10:22 | NUR ---
TRANSFER UPDATE RN TRANSPORT CALLED [facility] AND SPOKE WITH KINZA PER KINZA THEY ARE WORKING ON A BED AND WILL CALL SOON ONE BECOMES AVAILABLE PROVIDED KINZA WITH UPDATED PHONE NUMBER TO NURSES STATION
--- NOTE | 2018-05-04 10:41 | Pulmonology Progress Note ---
Assessment/Plan Assessment/Plan Pulmonary Progress Note Assessment/Plan Assessment/Plan IMPRESSION HIV Anemia/Thrombocytopenia - await BM result itchyness anemia, more altered today ECONOMICS CONSULTANT called, CT head negative AMS, probable encephalopathy, less confused today ID following, now on Rocephin PLAN Hematology following, TFN PRN - TF for HB 6.9 today ID following Neuro following Family requesting TF to [facility] BM result pending impression, plan, and exam edited and reviewed in detail care discussed with RN Subjective Allergies: Coded Allergies: No Known Allergies (Unverified , 04/18/13) Subjective findings noted Objective Vital Signs Noted Laboratory Tests 04/27/18 09:15: White Blood Count 9.6, Red Blood Count 2.67L, Hemoglobin 7.8#L, Hematocrit 22.5L , Mean Corpuscular Volume 84, Mean Corpuscular Hemoglobin 29.4, Mean Corpuscular Hemoglobin Concent 34.9, Red Cell Distribution Width 24.5H, Platelet Count 20L, Mean Platelet Volume 13.2H, Neutrophils (%) (Auto) , Lymphocytes (%) (Auto) , Monocytes (%) (Auto) , Eosinophils (%) (Auto) , Basophils (%) (Auto) , Differential Total Cells Counted 100, Neutrophils % ( Manual) 62, Lymphocytes % (Manual) 26, Monocytes % (Manual) 11H, Eosinophils % ( Manual) 0, Basophils % (Manual) 0, Metamyelocytes % 1H, Band Neutrophils 0, Nucleated Red Blood Cells 37, Platelet Estimate DecreasedL, Platelet Morphology Normal, Polychromasia 2+, Hypochromasia 2+, Poikilocytosis 1+, Anisocytosis 3+, Spherocytes 2+, Schistocytes 1+, Reticulocyte Count 8.0H, Hemoglobin A [Pending] , Hemoglobin A2 [Pending], Hemoglobin C [Pending], Hemoglobin F () [Pending ], Hemoglobin S [Pending], Variant Hemoglobin [Pending], Hemoglobin Electrophoresis Interp [Pending], Hemoglobin Interpretation [Pending], Hemoglobin Solubility [Pending], Haptoglobin [Pending], Prothrombin Time 11.4, Prothromb Time International Ratio 1.1, Total Bilirubin 2.1H, Direct Bilirubin 0.4H, Lactate Dehydrogenase 1780H, Rheumatoid Factor Screen [Pending], Anti- Nuclear Antibody Screen [Pending] Height (Feet): 5 Height (Inches): 2.00 Weight (Pounds): 229 Objective WDWN NAD clear breath sounds bilaterally without rhonchi or wheeze [id number] without MRG NABS nontender no HSM no CCE nonfocal Subjective ROS Limited/Unobtainable: No Allergies: Coded Allergies: No Known Allergies (Unverified , 04/18/13) Objective Last 24 Hour Vital Signs Date Time Temp Pulse Resp B/P (MAP) Pulse Ox O2 Delivery O2 Flow Rate FiO2 05/04/18 08:13 119/80 05/04/18 08:00 97.0 74 18 119/80 (93) 99 05/04/18 04:00 75 05/04/18 04:00 97.3 75 18 134/73 (93) 99 05/04/18 00:00 97.2 77 18 135/76 (95) 97 05/04/18 00:00 77 05/03/18 21:00 Room Air 05/03/18 20:00 86 05/03/18 20:00 97.3 88 18 135/91 (106) 97 05/03/18 16:00 97.9 80 18 136/72 (93) 100 05/03/18 15:36 79 05/03/18 12:00 97.9 79 18 143/87 (105) 100 05/03/18 11:40 83 Intake and Output 05/03/18 05/04/18 19:00 07:00 # Voids 2 # Bowel Movements 1 1 Microbiology Date/Time Source Procedure Growth Status 05/02/18 17:40 Blood Blood Culture - Preliminary NO GROWTH AFTER 24 HOURS Resulted 05/02/18 17:30 Blood Blood Culture - Preliminary NO GROWTH AFTER 24 HOURS Resulted Laboratory Tests 05/04/18 07:25: White Blood Count 17.1H, Red Blood Count 2.62L, Hemoglobin 8.0L, Hematocrit 24.6L, Mean Corpuscular Volume 94, Mean Corpuscular Hemoglobin 30.7, Mean Corpuscular Hemoglobin Concent 32.6, Red Cell Distribution Width 40.0H, Platelet Count 22#L, Mean Platelet Volume 13.8H, Neutrophils (%) (Auto) , Lymphocytes (%) (Auto) , Monocytes (%) (Auto) , Eosinophils (%) (Auto) , Basophils (%) (Auto) , Differential Total Cells Counted 100, Neutrophils % ( Manual) 73, Lymphocytes % (Manual) 22, Monocytes % (Manual) 3, Eosinophils % ( Manual) 0, Basophils % (Manual) 0, Myelocytes % 1H, Band Neutrophils 1, Nucleated Red Blood Cells 38, Platelet Estimate DecreasedL, Platelet Morphology Normal, Polychromasia 3+, Anisocytosis 3+, Spherocytes 1+, Schistocytes 2+ Current Medications Medications (Trade) Dose Ordered Sig/Ellen Route PRN Reason Start Time Stop Time Status Last Admin Dose Admin Ampicillin (Ampicillin) 500 mg EVERY 6 HOURS ORAL 05/04/18 12:00 05/10/18 17:59 Azithromycin (Zithromax) 1,200 mg ONCE A WEEK ORAL 05/10/18 18:00 05/17/18 17:59 Ceftriaxone Sodium 1 gm/ Dextrose 50 ml @ 100 mls/hr Q24H IVPB 05/04/18 16:00 05/09/18 15:59 Diphenhydramine HCl (Benadryl) 25 mg Q6H PRN ORAL Itching 05/04/18 10:00 05/22/18 09:59 Docusate Sodium (Colace) 100 mg TWICE A DAY ORAL 05/04/18 18:00 05/29/18 17:59 Famotidine (Pepcid) 20 mg BID ORAL 05/04/18 18:00 05/23/18 08:59 Gabapentin (Neurontin) 300 mg Q8H PRN ORAL Neurological pain 05/04/18 11:00 06/01/18 10:59 Gadobutrol (Gadavist) 7.5 mmol NOW PRN IV Radiology Procedure 05/04/18 10:00 05/05/18 23:59 Irbesartan (Avapro) 75 mg DAILY ORAL 05/05/18 09:00 05/23/18 08:59 Lactulose (Cephulac) 30 gm THREE TIMES A DAY ORAL 05/04/18 13:00 05/29/18 17:59 Levothyroxine Sodium (Synthroid) 112 mcg ACBREAKFAST ORAL 05/05/18 06:30 05/23/18 06:29 Ondansetron HCl (Zofran) 4 mg Q6H PRN IVP Nausea & Vomiting 05/04/18 10:15 05/30/18 16:14 Prednisone (predniSONE) 20 mg BID ORAL 05/04/18 18:00 05/23/18 08:59 Trimethoprim/ Sulfamethoxazole (Bactrim-DS) 1 tab Q24H ORAL 05/04/18 18:00 05/10/18 17:59 Romain Kerr MD May 04, 2018 10:41
--- NOTE | 2018-05-04 11:07 | NUR ---
TRANSFER TO FLOOR: Patient transferred to 3E per dr armstrong's order. Report given to gail packer. Belongings and medications given to gail rn. Family and or S/O informed of transfer.
[2018-05-04 12:00] VITALS: BP 147/92
--- NOTE | 2018-05-04 12:20 | NUR ---
NURSE NOTES: Received patient from MRI awake with out no distress, transferring nurse from tele gave report while patient in MRI patient belonging [facility] Fer[facility]. Sacral wound dressing dry and intact. patient alert oriented x3.
--- NOTE | 2018-05-04 15:29 | Diagnostic Imaging Report ---
Indication: Altered level of consciousness, dizziness Technique: sagittal T1 fast spin echo, axial T1 and T2 FLAIR PROPELLER, axial T2 FS PROPELLER, T2* GRE, axial diffusion weighted images, post contrast axial and coronal T1 FLAIR PROPELLER images. ADC and exponential ADC maps generated Comparison: Brain CT dated 04/30/2018 Findings: Small subtle focus of high signal on the diffusion-weighted images is seen in the right globus pallidus, demonstrating associated slightly increased T2 signal and equivocally decreased signal on ADC map. Very questionable tiny cortical focus of right diffusion signal is seen in the high left posterior parietal lobe, image 22 series 3, without corresponding T2 abnormality. Very questionable subtle high diffusion signal is seen in the right side of the midbrain, with out corresponding abnormality on other sequences. No acute hemorrhage or edema. Small punctate focus of susceptibility artifact is seen in the left caudate head on the GRE images. Another is seen in the left frontal operculum. No unusual contrast enhancement is demonstrated. Old lacunar infarcts versus prominent perivascular spaces are seen in the basal ganglia bilaterally.. No mass effect nor midline shift. There is mild age-related enlargement of the ventricles and extra-axial CSF spaces. Visualized orbits and sinuses are unremarkable. . Impression: Suspect tiny acute lacunar infarct in the right globus pallidus Equivocal subtle diffusion signal abnormalities in the right midbrain and high left posterior parietal lobe. Favor artifact, but could represent tiny acute or subacute lacunar infarcts Negative for acute intracranial bleed or mass effect Evidence of old microbleed in the left caudate head and left frontal operculum Bilateral basal ganglia tiny or old lacunar infarcts versus prominent perivascular spaces Mild age-related volume loss Findings phoned to patient's nurse at the time of interpretation
[2018-05-04] MEDS ORDERED: cefTRIAXone 1 GM in D5W 50 ML IVPB SCH (16:00)
[2018-05-04 16:30] VITALS: BP 148/92
--- NOTE | 2018-05-04 16:31 | Neurology Progress Note ---
Interim History Interim History Interim History Ms. Guzman feels about the same as yesterday. She feels that her mind is clearer, but still not normal. She has had no further episodes of loss of consciousness or altered consciousness. She is still confused and disoriented. She is still significantly encephalopathic. She continues to be cognitively impoverished. She continues to be in bed all day. She has not noticed any new neurologic symptoms. Review of Systems Neuro Review of Systems Benign. Objective Physical Exam Last Vital Signs Date Time Temp Pulse Resp B/P (MAP) Pulse Ox O2 Delivery O2 Flow Rate FiO2 05/04/18 09:00 Room Air 05/04/18 08:13 119/80 05/04/18 08:00 97.0 74 18 99 04/26/18 14:57 2.0 Laboratory Tests Test 05/04/18 07:25 White Blood Count 17.1 K/UL (4.8-10.8) H Red Blood Count 2.62 M/UL (4.20-5.40) L Hemoglobin 8.0 G/DL (12.0-16.0) L Hematocrit 24.6 % (37.0-47.0) L Mean Corpuscular Volume 94 FL (80-99) Mean Corpuscular Hemoglobin 30.7 PG (27.0-31.0) Mean Corpuscular Hemoglobin Concent 32.6 G/DL (32.0-36.0) Red Cell Distribution Width 40.0 % (11.6-14.8) H Platelet Count 22 K/UL (150-450) #L Mean Platelet Volume 13.8 FL (6.5-10.1) H Neutrophils (%) (Auto) % (45.0-75.0) Lymphocytes (%) (Auto) % (20.0-45.0) Monocytes (%) (Auto) % (1.0-10.0) Eosinophils (%) (Auto) % (0.0-3.0) Basophils (%) (Auto) % (0.0-2.0) Differential Total Cells Counted 100 Neutrophils % (Manual) 73 % (45-75) Lymphocytes % (Manual) 22 % (20-45) Monocytes % (Manual) 3 % (1-10) Eosinophils % (Manual) 0 % (0-3) Basophils % (Manual) 0 % (0-2) Myelocytes % 1 % (0-0) H Band Neutrophils 1 % (0-8) Nucleated Red Blood Cells 38 /100 WBC Platelet Estimate Decreased L Platelet Morphology Normal Polychromasia 3+ Anisocytosis 3+ Spherocytes 1+ Schistocytes 2+ Neurologic Exam Objective PHYSICAL EXAMINATION: GENERAL: She is a well-developed, well-nourished, slightly obese black lady, lying in bed, in no acute distress. HEAD: Normocephalic and atraumatic. EENT: Examination benign. NECK: No neck rigidity was observed. NEUROLOGIC EXAMINATION: MENTAL STATUS EXAMINATION: She was awake and alert. She was oriented to self, [facility] and April. She was able to recall 3/3 words immediately, but could only remember 1/3 in 1 minute and 3 minutes. She was unable to remember any [place] Presidents. Her mathematical skills were impaired. Her visuospatial function was also impaired. SPEECH: She had no dysarthria. LANGUAGE: She had word-finding problems during spontaneous speech and also had problems with comprehension. CRANIAL NERVE EXAMINATION: II: The visual king were intact on confrontation testing. III, IV & : External ocular movements were full and the pupils 3 mm in diameter, equal, round, regular, and reactive to light. V: She had normal facial sensations, and the temporales, masseters, and pterygoids functioned normally. VII: She had normal facial expressions and no facial asymmetry. VIII: She was able to hear well bilaterally and had no nystagmus. IX: The palate moved symmetrically on phonation. X: She had no hoarseness of voice. XI: The sternocleidomastoids and trapezii functioned normally. XII: The tongue was in the midline without any fasciculations or atrophy. MOTOR SYSTEM: The tone was normal in all four extremities. Examination of muscle mass revealed no focal wasting. Examination of power revealed G 5/5 except for G 4-/5 in the iliopsoas muscles bilaterally. SENSORY EXAMINATION: She had intact sensations to light touch. REFLEXES: Trace+ and bilaterally symmetrical at the biceps, triceps, brachioradialis, and knees; zero at both ankles. The plantar responses were flexor bilaterally. COORDINATION: She performed well on [id number] testing. STANCE & GAIT: Could not be tested. Impression/Recommendations Diagnostic Impression 1. Ms. Zoraida Guzman is a 57-year-old, right-handed, black lady, with past history of hypertension and HIV disease, who in the first week of April developed flu-like syndrome. This was followed by dizziness, lightheadedness, and a sensation that she may faint. She was hospitalized for these symptoms on 04/22/2018, and was found to be significantly anemic and thrombocytopenic. She was treated with blood transfusions and improved. Then on the morning of , she suddenly became unresponsive. Her hemoglobin had dropped to 6.8 G. Since then, she was transfused with packed red blood cells and was improving. 2. She feels about the same as yesterday. She feels that her mind is clearer, but still not normal. She has had no further episodes of loss of consciousness or altered consciousness. She is still confused and disoriented. She is still significantly encephalopathic. She continues to be cognitively impoverished. She continues to be in bed all day. She has not noticed any new neurologic symptoms. 3. On neurological examination, at this time, she does have problems with orientation, recent and remote memory, visuospatial function, higher cognitive function, and language. She however does not demonstrate any focal or lateralizing neurological findings. She does have proximal lower extremity weakness. Her deep tendon reflexes are globally diminished. 4. The CT scan of the brain without contrast is benign. 5. The MRI of the brain done on 05/04/18 revealed: - A suspect tiny acute lacunar infarct in the right globus pallidus. - Equivocal subtle diffusion signal abnormalities in the right midbrain and high left posterior parietal lobe most probably an artifact. - Evidence of old microbleeds in the left caudate head and left frontal operculum - Bilateral basal ganglia tiny or old lacunar infarcts versus prominent perivascular spaces - Mild age-related volume loss 6. Her latest laboratory data on my initial evaluation revealed that her WBC count is elevated to 12,000, her hemoglobin has dropped to 6.8 G, and her platelet count is down at 27,000. Her chemistry panel reveals that BUN is elevated to 26 and her glucose is elevated at 194. Her liver function tests from when she came in reveal that her total bilirubin is elevated at 1.7 and AST is elevated at 68. Her B12 is normal at 975, folate is normal at 13.8, and TSH is normal at 3.43. Her ammonia is also normal at 21. 7. The patient's history, neurological examination, laboratory data, and imaging studies are most compatible with an encephalopathy most probably related to her significant anemia and possibly her infectious process. The encephalopathy has stabilized and is not improving further. Recommendations 1. Continue present management. 2. Correct hemoglobin to > 10 G. 3. It may be worth doing a LP, when her platelet count allows it, to exclude a CRO infectious process as a reason for her continued encephalopathy. 4. Observe closely. Erick Ulrich M.D., M.S.P.H. Erick Ulrich MD May 04, 2018 16:31
--- NOTE | 2018-05-04 17:26 | NUR ---
TRANSFER TO [facility] UPDATE [facility] ABUSE TECHNICIAN RECEIVED CALL FROM KINZA WITH [facility] STATING DR PARADA REVIEWED THE CASE AND HAS DECLINED TO ACCEPT PATIENT BECAUSE IT IS A LATERAL TRANSFER. [facility] WILL REMOVE PATIENT FROM THEIR LIST
[2018-05-04] MEDS ORDERED: Bactrim-DS 1 tab ORAL SCH (18:00)
--- NOTE | 2018-05-04 20:10 | NUR ---
NURSE NOTES: Bedside report recieved from outgoing [facility] Marc. Pt is stable and laying supine in bed. Pt's daughter and sister at the bedside, both will be spending the night. SIV acral dressing intact. Addendum: 05/04/18 at 2021 by Joshua Fulton RN NURSE NOTES: Bedside report received from outgoing [facility] Marc. Pt is stable and laying supine in bed. Pt's daughter and sister at the bedside, both will be spending the night. IV 20g on right forearm and 20g on left AC. Sacral dressing intact. Call light in reach, bed in lowest position, side rails up x2. Will continue to monitor pt.
--- NOTE | 2018-05-04 20:11 | NUR ---
NURSE NOTES: 24 hour urine collection attempt to initiate first urine contaminated with stool, following urine patient incontinent unable to collect endorsed assistant professor of biochemistry nurse to notify MD, had episodes of incontinent x2, wound dressing came off new dressing applied as ordered patient tolerated will no bleeding noted. family at bedside participated with patient care. patient has poor appetite, medication crushed and administered with apple sauce.
[2018-05-04 20:29] VITALS: BP 137/75
--- NOTE | 2018-05-04 20:47 | General Progress Note ---
Assessment/Plan Assessment/Plan # Severe thrombocytopenia - is most likely related to HIV poorly controlled, but will need to r/o malignancy as well as well as infection. 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, ferritin is elevated, tibc low --> w/u has been reviewed, some hemolysis mild is noted --> LDH elevated 1322-->1708-->3404-->3600 --> trend 7.5--> 6.8-->7.4-->6.8 -->8 --> Hgb goal >7, transfuse prn --> treat underlying hiv and OIs --> IS ON PREDNISONE 20mg po bid --> pending a LP once thrombocytopenia better # Leukocytosis - potentially related to steroids --> monitor and trend wbc for improvement --> ID service following --> on abx as needed # HIV (human immunodeficiency virus infection) poorly controlled --> continue hiv meds --> appreciate id recs --> CD4 count of 90 --> restarted on hiv meds # Bilateral nephrolithiasis --> appreciate renal recs # Dizziness and hematuria r/o kidney stones. --> ivf has been given # Hypomagnesemia -- replete with mag Greatly appreciate consultation! Subjective Constitutional: Denies: no symptoms, chills, diaphoresis, fever, malaise, weakness, other HEENT: Denies: no symptoms, eye pain, blurred vision, tearing, double vision, ear pain, ear discharge, nose pain, nose congestion, throat pain, throat swelling, mouth pain, mouth swelling, other Cardiovascular: Denies: no symptoms, chest pain, edema, irregular heart rate, lightheadedness, palpitations, syncope, other Respiratory: Denies: no symptoms, cough, orthopnea, shortness of breath, SOB with excertion, SOB at rest, sputum, stridor, wheezing, other Gastrointestinal/Abdominal: Denies: no symptoms, abdomen distended, abdominal pain, black stools, tarry stools, blood in stool, constipated, diarrhea, difficulty swallowing, nausea, poor appetite, poor fluid intake, rectal bleeding , vomiting, other Genitourinary: Denies: no symptoms, burning, discharge, frequency, flank pain, hematuria, incontinence, pain, urgency, other Neurologic/Psychiatric: Denies: no symptoms, anxiety, depressed, emotional problems, headache, numbness, paresthesia, pre-existing deficit, seizure, tingling, tremors, weakness, other Endocrine: Denies: no symptoms, excessive sweating, flushing, intolerance to cold, intolerance to heat, increased hunger, increased thirst, increased urine, unexplained weight gain, unexplained weight loss, other Allergies: Coded Allergies: No Known Allergies (Unverified , 04/18/13) Subjective Biopsy perfromed 04/26. S/P blood tx, CBC reviewed 04/30: awaiting biopsy results, pending 05/01: results still pending, less ams, less encephalopathic, no seizures 05/02: reviewed, ldh remains high, seen by ID 05/03: discussed case with path, awaiting hematopathology eval, igG set ordered 05/04: bone marrow biopsy results final pending though hgb 6.9, transfused with 1 unit prbc Objective Last 24 Hour Vital Signs Date Time Temp Pulse Resp B/P (MAP) Pulse Ox O2 Delivery O2 Flow Rate FiO2 05/04/18 20:29 98.0 84 18 137/75 (95) 100 05/04/18 16:30 98.4 90 20 148/92 (110) 98 05/04/18 12:00 97.6 74 20 147/92 (110) 99 05/04/18 09:00 Room Air 05/04/18 08:13 119/80 05/04/18 08:00 97.0 74 18 119/80 (93) 99 05/04/18 04:00 75 05/04/18 04:00 97.3 75 18 134/73 (93) 99 05/04/18 00:00 97.2 77 18 135/76 (95) 97 05/04/18 00:00 77 05/03/18 21:00 Room Air Intake and Output 05/03/18 05/04/18 19:00 07:00 # Voids 2 # Bowel Movements 1 1 Laboratory Tests 05/04/18 07:25: White Blood Count 17.1H, Red Blood Count 2.62L, Hemoglobin 8.0L, Hematocrit 24.6L, Mean Corpuscular Volume 94, Mean Corpuscular Hemoglobin 30.7, Mean Corpuscular Hemoglobin Concent 32.6, Red Cell Distribution Width 40.0H, Platelet Count 22#L, Mean Platelet Volume 13.8H, Neutrophils (%) (Auto) , Lymphocytes (%) (Auto) , Monocytes (%) (Auto) , Eosinophils (%) (Auto) , Basophils (%) (Auto) , Differential Total Cells Counted 100, Neutrophils % ( Manual) 73, Lymphocytes % (Manual) 22, Monocytes % (Manual) 3, Eosinophils % ( Manual) 0, Basophils % (Manual) 0, Myelocytes % 1H, Band Neutrophils 1, Nucleated Red Blood Cells 38, Platelet Estimate DecreasedL, Platelet Morphology Normal, Polychromasia 3+, Anisocytosis 3+, Spherocytes 1+, Schistocytes 2+ Height (Feet): 5 Height (Inches): 2.00 Weight (Pounds): 231 Objective General Appearance: alert EENT: TMs normal Neck: normal inspection Cardiovascular: regular rhythm Respiratory/Chest: no respiratory distress Abdomen: no organomegaly Extremities: non-tender Edema: mild edema Skin: warm/dry Antony Julian MD May 04, 2018 20:47
[2018-05-05] VITALS: BP 129/84
--- NOTE | 2018-05-05 02:45 | NUR ---
NURSE NOTES: Pt voided in bed x2. Unable to collect 24hr urine collection d/t pt incontinence and confusion. Will notify MD in the morning. Will continue to monitor pt.
[2018-05-05 04:00] VITALS: BP 126/81
[2018-05-05 07:10] LABS: HEMATOCRIT 23.1 % (37.0-47.0); HEMOGLOBIN 7.5 G/DL (12.0-16.0); MEAN CORPUSCULAR VOLUME 95 FL (80-99); PLATELET COUNT 24 K/UL (150-450); RED BLOOD COUNT 2.43 M/UL (4.20-5.40); RED CELL DISTRIBUTION WIDTH 41.1 % (11.6-14.8); WHITE BLOOD COUNT 13.5 K/UL (4.8-10.8)
--- NOTE | 2018-05-05 07:10 | NUR ---
NURSE NOTES: Patient not responding this morning. Unable to speak. Unable to move left side. Cannot follow commands, able to smile when instructed. BP 133/75. Pulse 80, 02 94%, RR 17. Dr. Porras called, attending Physician Dr. Mathews not contracted with hospital. Dr. Mathews contacted Dr. Porras. Dr. Porras called back, ordered stat MRI of the brain. Order placed. If cannot be done, patient must be transferred per Dr. Porras. Dr. Kerr made aware, stat CT scan ordered. Addendum: 05/05/18 at 0843 by VALARIE AGUILLON RN Unable to move eyes to the left. Rapid response called at 0630. Transfer to higher level of care was recommended.
--- NOTE | 2018-05-05 07:30 | NUR ---
NURSE NOTES: Patient was taken to CT.
[2018-05-05 07:44] LABS: ANION GAP 14 mmol/L (5-15); BLOOD UREA NITROGEN 28 mg/dL (7-18); CALCIUM 8.3 MG/DL (8.5-10.1); CARBON DIOXIDE 22 MMOL/L (21-32); CHLORIDE 104 MMOL/L (98-107); POTASSIUM 3.5 MMOL/L (3.5-5.1); SODIUM 140 MMOL/L (136-145)
[2018-05-05 08:00] VITALS: BP 148/82
--- NOTE | 2018-05-05 08:00 | NUR ---
NURSE NOTES: Patient back on unit. Patient is stable, no distress noted at this time. Patient had a change of condition, MD aware, new orders noted and carried out. Patient is unable to move left side extremities. Patient has difficulty speaking. Patient kept clean and dry. All needs met at this time. Safety measures provided. WIll continue to monitor.
--- NOTE | 2018-05-05 08:07 | Diagnostic Imaging Report ---
EXAM: CT Head Without Intravenous Contrast CLINICAL HISTORY: 57-year-old female with weakness. TECHNIQUE: Axial computed tomography images of the head/brain without intravenous contrast. Coronal reformatted images were created and reviewed. CTDI is 70.53 mGy and DLP is 1435 mGy-cm. One or more of the following dose reduction techniques were used: automated exposure control, adjustment of the mA and/or kV according to patient size, use of iterative reconstruction technique. COMPARISON: Brain MRI 05/04/2018; head CT 04/30/2018. FINDINGS: Artifacts: Mild to moderate motion artifact. Brain: No acute intracranial hemorrhage or evidence of acute large territory infarction. Subtle possible small evolving nonhemorrhagic right basal ganglier lacunar infarction, as before. Ventricles: Unremarkable. Bones/joints: Unremarkable. Soft tissues: Unremarkable. Sinuses: Unremarkable as visualized. Mastoid air cells: Unremarkable as visualized. IMPRESSION: No acute intracranial hemorrhage or definite evidence of acute large territory infarction, allowing for mild to moderate motion artifact; possible small subtle acute/early subacute right basal ganglial lacunar infarction, as identified on the recent MRI.
--- NOTE | 2018-05-05 08:08 | NUR ---
NURSE NOTES: I was made aware that the patient had a change in mental status and condition this morning. Nursing Label Drier Nargis Morse was notified. ICU team was called in by Nursing cook supervisor to do an NIH stroke assessment. ICU team recommended CT Scan and upgrade to higher level of care. Vitals signs and Blood sugar stable. BP 133/75. Pulse 80, 02 94%, RR 17. Erum VANESSA paged Christ Kerr and Dr Ulrich. 's have ordered CT Head Stat and MRI of the Brain Stat to rule out stroke. Pending results to report to 's. Full report regarding patient was given to oncoming charge Tari VANESSA.
--- NOTE | 2018-05-05 08:21 | NUR ---
Dr. Julian visited patient. Recommended stat transfer to [facility]. Order placed. Report given to [facility]. Jose Carlos aware of transfer. Addendum: 05/05/18 at 0845 by VALARIE AGUILLON RN *Dr. Julian ordered stat transfer to [facility]
--- NOTE | 2018-05-05 08:30 | NUR ---
NURSE NOTES: Spoke to regarding 24 hr urine collection. changed order - 1. D/C 24hr Urine collection, 2. Urine protein and Urine Electrophoresis. Order read back and carried out.
--- NOTE | 2018-05-05 08:48 | NUR ---
HAND-OFF: Report given to [facility]. Awaiting transfer and MRI still to be done. Jose Carlos made aware
[2018-05-05] MEDS: Docusate 100mg cap ORAL SCH (09:00)
[2018-05-05] MEDS: Lactulose 20gm/30ml UDC ORAL SCH (09:00)
--- NOTE | 2018-05-05 09:02 | NUR ---
NURSE NOTES: Patient is in bed awake, unable to speak. Patient was taken to MRI.
--- NOTE | 2018-05-05 10:19 | Diagnostic Imaging Report ---
EXAM: MR Head Without Intravenous Contrast CLINICAL HISTORY: WEAK TECHNIQUE: Magnetic resonance images of the head/brain without intravenous contrast in multiple planes. COMPARISON: 05/04/18 FINDINGS: Brain: No acute infarct. High signal changes in the chaka, basal ganglia and possibly the medulla-upper cord on the left side and the cerebellar peduncle. Ventricles: High signal changes in the CSF fluid on flair images , presumed artifactual. Otherwise complex or proteinaceous debris not excluded. Bones/joints: Unremarkable. Sinuses: Unremarkable as visualized. No acute sinusitis. Mastoid air cells: Unremarkable as visualized. No mastoid effusion. Orbits: Unremarkable as visualized. IMPRESSION: 1. No acute infarct. 2. High signal changes in the chaka, basal ganglia and possibly small foci in the medulla-upper cord on the left side and the cerebellar peduncle.
--- NOTE | 2018-05-05 10:20 | NUR ---
NURSE NOTES: Patient back on unit. Patient is stable, family is bedside. Gave patient KCl IV as ordered, tolerated well. Doctor is aware of patient's change in condition. Family made aware. Patient has a skin tear on sacrum, dressing clean dry and intact. No complications at this time. Patient is not in distress, no SOB or pain noted. Breathing is even and unlabored. Belongings with family. Will transfer patient to higher level of care as ordered.
--- NOTE | 2018-05-05 11:33 | NUR ---
NURSE NOTES: [facility] called and spoke to CN regarding the new order to transfer patient to [facility] stated she will be working on to transfer [facility] or other higher level hospital.
--- NOTE | 2018-05-05 11:45 | NUR ---
NURSE NOTES: Received patient from [facility] [place]. Patient reportedly alert and oriented yesterday. Last night patient suspected to have had a stroke for which patient was transferred to [facility] at this time. Patient immobile and nonverbal and nonresponsive at this time. Patient's eyes open and she is glancing to the right. Patient is favoring her right side at this time. Patient's head is turned to the right side. As I was assessing the patient, she became agitated and started to have seizure like activity that last about 2 minutes. During this time, the patient appeared short of breath and was using accessory muscles to breath. Patient was placed on 2L NC. O2 monitor is in place but having a hard time getting a read. O2 monitor is on her ear and the patient has a split earlobe. In addition, the patient has nail cuban on her nails. Patient NPO at this time due to inability to swallow due to possible stroke. Patient had a CT of the head and a brain MRI this morning. Both were reportedly negative at this time. Patient is incontinent of urine at this time. Patient will be given a purewick. Patient's urine is pink in color. Patient had a positive OB stool previously. Patient has a sacral skin tear that is covered with steristrips and tegiderm. Patient has a right forearm 20G that is leaking at this time. PIV will be replaced at this time. Patient has a left AC 20G PIV that is patent and asymptomatic at this time. Patient has potassium 10mEq running at this time. Patient has an order for one pack RBC. Will follow up with blood bank and give blood when possible. Will also follow up with primary and ID MD's to get medications changed from PO form as the patient cannot swallow at this time.
--- NOTE | 2018-05-05 11:45 | NUR ---
HAND-OFF: Transferred [facility] and report given to Manasa VANESSA. Family member notified.
[2018-05-05 12:00] VITALS: BP 150/94
--- NOTE | 2018-05-05 12:15 | Pulmonology Progress Note ---
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[employer] called, CT head negative AMS, probable encephalopathy, more confused today, c/o left sided weakness, Neurology aware ID following PLAN Hematology following, TFN PRN - TF PRN ID following Neuro following Family requesting TF to [facility] BM result pending impression, plan, and exam edited and reviewed in detail care discussed with RN Subjective Allergies: Coded Allergies: No Known Allergies (Unverified , 04/18/13) Subjective findings noted Objective Vital Signs Noted Laboratory Tests/Imaging noted Procedure: MRI Brain no Contrast EXAM: MR Head Without Intravenous Contrast CLINICAL HISTORY: WEAK TECHNIQUE: Magnetic resonance images of the head/brain without intravenous contrast in multiple planes. COMPARISON: 05/04/18 FINDINGS: Brain: No acute infarct. High signal changes in the chaka, basal ganglia and possibly the medulla-upper cord on the left side and the cerebellar peduncle. Ventricles: High signal changes in the CSF fluid on flair images , presumed artifactual. Otherwise complex or proteinaceous debris not excluded. Bones/joints: Unremarkable. Sinuses: Unremarkable as visualized. No acute sinusitis. Mastoid air cells: Unremarkable as visualized. No mastoid effusion. Orbits: Unremarkable as visualized. IMPRESSION: 1. No acute infarct. 2. High signal changes in the chaka, basal ganglia and possibly small foci in the medulla-upper cord on the left side and the cerebellar peduncle. Height (Feet): 5 Height (Inches): 2.00 Weight (Pounds): 229 Objective WDWN NAD clear breath sounds bilaterally without rhonchi or wheeze [id number] without MRG NABS nontender no HSM no CCE some left sided weakness, oriented person Subjective ROS Limited/Unobtainable: No Allergies: Coded Allergies: No Known Allergies (Unverified , 04/18/13) Objective Last 24 Hour Vital Signs Date Time Temp Pulse Resp B/P (MAP) Pulse Ox O2 Delivery O2 Flow Rate FiO2 05/05/18 09:00 Room Air 05/05/18 08:00 97.2 79 18 148/82 (104) 99 05/05/18 04:00 97.6 81 18 126/81 (96) 100 05/05/18 00:00 97.5 78 18 129/84 (99) 100 05/04/18 21:00 Room Air 05/04/18 21:00 Room Air 05/04/18 20:29 98.0 84 18 137/75 (95) 100 05/04/18 16:30 98.4 90 20 148/92 (110) 98 Intake and Output 05/04/18 05/05/18 19:00 07:00 Intake Total 505 ml Output Total 450 ml Balance 55 ml Intake Oral 505 ml Output Urine Total 450 ml # Voids 1 2 # Bowel Movements 2 1 Microbiology Date/Time Source Procedure Growth Status 05/02/18 17:40 Blood Blood Culture - Preliminary NO GROWTH AFTER 48 HOURS Resulted 05/02/18 17:30 Blood Blood Culture - Preliminary NO GROWTH AFTER 48 HOURS Resulted Laboratory Tests 05/05/18 05:27: White Blood Count 13.5H, Corrected White Blood Count 10.0, Red Blood Count 2.43L , Hemoglobin 7.5L, Hematocrit 23.1L, Mean Corpuscular Volume 95, Mean Corpuscular Hemoglobin 30.9, Mean Corpuscular Hemoglobin Concent 32.6, Red Cell Distribution Width 41.1H, Platelet Count 24L, Mean Platelet Volume 13.9H, Neutrophils (%) (Auto) , Lymphocytes (%) (Auto) , Monocytes (%) (Auto) , Eosinophils (%) (Auto) , Basophils (%) (Auto) , Differential Total Cells Counted 100, Neutrophils % (Manual) 71, Lymphocytes % (Manual) 22, Monocytes % ( Manual) 7, Eosinophils % (Manual) 0, Basophils % (Manual) 0, Band Neutrophils 0 , Nucleated Red Blood Cells 30, Platelet Estimate DecreasedL, Platelet Morphology Normal, Polychromasia 3+, Anisocytosis 4+, Microcytosis 1+, Macrocytosis 2+, Schistocytes 2+, Sodium Level 140, Potassium Level 3.5, Chloride Level 104, Carbon Dioxide Level 22, Anion Gap 14, Blood Urea Nitrogen 28H, Creatinine 1.0, Estimat Glomerular Filtration Rate > 60, Glucose Level 188H , Calcium Level 8.3L, Cryptococcus Antigen [Pending] Current Medications Medications (Trade) Dose Ordered Sig/Ellen Route PRN Reason Start Time Stop Time Status Last Admin Dose Admin Ampicillin (Ampicillin) 500 mg EVERY 6 HOURS ORAL 05/05/18 12:00 05/10/18 17:59 Azithromycin (Zithromax) 1,200 mg ONCE A WEEK ORAL 05/10/18 18:00 05/17/18 17:59 Ceftriaxone Sodium 1 gm/ Dextrose 50 ml @ 100 mls/hr Q24H IVPB 05/05/18 16:00 05/09/18 15:59 Diphenhydramine HCl (Benadryl) 25 mg Q6H PRN ORAL Itching 05/05/18 12:00 05/22/18 11:59 Docusate Sodium (Colace) 100 mg TWICE A DAY ORAL 05/05/18 18:00 05/29/18 17:59 Famotidine (Pepcid) 20 mg BID ORAL 05/05/18 18:00 05/23/18 08:59 Gabapentin (Neurontin) 300 mg Q8H PRN ORAL Neurological pain 05/05/18 19:00 06/01/18 10:59 Irbesartan (Avapro) 75 mg DAILY ORAL 05/06/18 09:00 05/23/18 08:59 Lactulose (Cephulac) 30 gm THREE TIMES A DAY ORAL 05/05/18 13:00 05/29/18 17:59 Levothyroxine Sodium (Synthroid) 112 mcg ACBREAKFAST ORAL 05/06/18 06:30 05/23/18 06:29 Ondansetron HCl (Zofran) 4 mg Q6H PRN IVP Nausea & Vomiting 05/05/18 12:00 05/30/18 11:59 Prednisone (predniSONE) 20 mg BID ORAL 05/05/18 18:00 05/23/18 08:59 Trimethoprim/ Sulfamethoxazole (Bactrim-DS) 1 tab Q24H ORAL 05/05/18 18:00 05/10/18 17:59 Romain Kerr MD May 05, 2018 12:15
[2018-05-05] MEDS ORDERED: LORazepam Inj 2mg/ml 1ml IV SCH (12:20)
--- NOTE | 2018-05-05 12:30 | NUR ---
NURSE NOTES: Shortly after being transferred to the floor, the patient began having violent tremors and possible seizure activity. Dr Ulrich is assessing the patient at this time. Patient has been given 2mg Ativan. Patient unresponsive with eyes open at this time.
--- NOTE | 2018-05-05 12:47 | NUR ---
CASE MANAGEMENT: TRANSFERNOTE PER DR. ULISES HERMAN / HOSPITALIST [facility] [phone] PATIENT TRANSFER WAS DECLINED DUE TO NEGATIVE MRI AND NO RECEIVING MD.. PER DR. HERMAN A PATIENT TRANSFER ON THE WEEKEND IS RESERVED PATIENTS UNDER [facility] IPA. FAMILY NOTIFIED
--- NOTE | 2018-05-05 12:56 | Neurology Progress Note ---
Interim History Interim History Interim History Ms. Guzman had a sudden change in her condition this morning. She became weak and flaccid on the left side this morning. A STAT MRI of the brain was ordered and revealed no acute pathology. She has continued to be weak and flaccid on the left and has her eyes and head deviated to the right now. Review of Systems Neuro Review of Systems Unable to obtain. Objective Physical Exam Last Vital Signs Date Time Temp Pulse Resp B/P (MAP) Pulse Ox O2 Delivery O2 Flow Rate FiO2 05/05/18 09:00 Room Air 05/05/18 08:00 97.2 79 18 148/82 (104) 99 04/26/18 14:57 2.0 Laboratory Tests Test 05/05/18 05:27 White Blood Count 13.5 K/UL (4.8-10.8) H Corrected White Blood Count 10.0 K/UL Red Blood Count 2.43 M/UL (4.20-5.40) L Hemoglobin 7.5 G/DL (12.0-16.0) L Hematocrit 23.1 % (37.0-47.0) L Mean Corpuscular Volume 95 FL (80-99) Mean Corpuscular Hemoglobin 30.9 PG (27.0-31.0) Mean Corpuscular Hemoglobin Concent 32.6 G/DL (32.0-36.0) Red Cell Distribution Width 41.1 % (11.6-14.8) H Platelet Count 24 K/UL (150-450) L Mean Platelet Volume 13.9 FL (6.5-10.1) H Neutrophils (%) (Auto) % (45.0-75.0) Lymphocytes (%) (Auto) % (20.0-45.0) Monocytes (%) (Auto) % (1.0-10.0) Eosinophils (%) (Auto) % (0.0-3.0) Basophils (%) (Auto) % (0.0-2.0) Differential Total Cells Counted 100 Neutrophils % (Manual) 71 % (45-75) Lymphocytes % (Manual) 22 % (20-45) Monocytes % (Manual) 7 % (1-10) Eosinophils % (Manual) 0 % (0-3) Basophils % (Manual) 0 % (0-2) Band Neutrophils 0 % (0-8) Nucleated Red Blood Cells 30 /100 WBC Platelet Estimate Decreased L Platelet Morphology Normal Polychromasia 3+ Anisocytosis 4+ Microcytosis 1+ Macrocytosis 2+ Schistocytes 2+ Sodium Level 140 MMOL/L (136-145) Potassium Level 3.5 MMOL/L (3.5-5.1) Chloride Level 104 MMOL/L (98-107) Carbon Dioxide Level 22 MMOL/L (21-32) Anion Gap 14 mmol/L (5-15) Blood Urea Nitrogen 28 mg/dL (7-18) H Creatinine 1.0 MG/DL (0.55-1.30) Estimat Glomerular Filtration Rate > 60 mL/min (>60) Glucose Level 188 MG/DL (74-106) H Calcium Level 8.3 MG/DL (8.5-10.1) L Cryptococcus Antigen Pending Neurologic Exam Objective PHYSICAL EXAMINATION: GENERAL: She is a well-developed, well-nourished, slightly obese black lady, lying in bed, with her her head and eyes divated to the right. HEAD: Normocephalic and atraumatic. EENT: Examination benign. NECK: No neck rigidity was observed. NEUROLOGIC EXAMINATION: MENTAL STATUS EXAMINATION: She was awake but not alert. She was unable to communicate. SPEECH: She was mute. LANGUAGE: She was unable to comprehend or express herself. CRANIAL NERVE EXAMINATION: II: She did blink to threat on the right but not the left. III, IV & : The eyes were deviated to the right but could be moved in all direction on OCM. The pupils were 3 mm in diameter, equal, round, regular, and reactive to light. V-VII: She had a left facial paresis and diminished corneal reflex on the left. VIII: She did respond to sounds and had no nystagmus. IX-X: The gag reflex was subdued. XI: The sternocleidomastoids and trapezii functioned minimally XII: The tongue was in the midline. MOTOR SYSTEM: The tone was normal on the right and flaccid on the left. Examination of muscle mass revealed no focal wasting. Examination of power could not be tested accurately. She moved her right side on deep pain but not the left. SENSORY EXAMINATION: She responded to deep pain on the right but not the left. REFLEXES: Trace+ on the right and 0 on the left at the biceps, triceps, brachioradialis, and knees; zero at both ankles. The plantar responses were mute bilaterally. COORDINATION, STANCE & GAIT: Could not be tested. Impression/Recommendations Diagnostic Impression 1. Ms. Zoraida Guzman is a 57-year-old, right-handed, black lady, with past history of hypertension and HIV disease, who in the first week of April developed flu-like syndrome. This was followed by dizziness, lightheadedness, and a sensation that she may faint. She was hospitalized for these symptoms on 04/22/2018, and was found to be significantly anemic and thrombocytopenic. She was treated with blood transfusions and improved. Then on the morning of , she suddenly became unresponsive. Her hemoglobin had dropped to 6.8 G. Since then, she was transfused with packed red blood cells and was improving. 2. She had a sudden change in her condition this morning. She became weak and flaccid on the left side. A STAT MRI of the brain was ordered and revealed no acute pathology. She has continued to be weak and flaccid on the left and has her eyes and head deviated to the right now. 3. On neurological examination, at this time, she is awake but not alert. She is unable to communicate. She is mute. She is unable to comprehend or express herself. She has a left visual field deficit to threat, diminished corneal reflex on the left, left flaccid plegia and left areflexia, and mute plantar responses. 4. The CT scan of the brain without contrast done on 04/30/18 was benign. 5. The MRI of the brain done on 05/04/18 revealed: - A suspect tiny acute lacunar infarct in the right globus pallidus. - Equivocal subtle diffusion signal abnormalities in the right midbrain and high left posterior parietal lobe most probably an artifact. - Evidence of old microbleeds in the left caudate head and left frontal operculum - Bilateral basal ganglia tiny or old lacunar infarcts versus prominent perivascular spaces - Mild age-related volume loss 6. The repeat MRI of the brain done on 05/05/18 revealed no acute pathology. 7. Her latest laboratory data on my initial evaluation revealed that her WBC count is elevated to 12,000, her hemoglobin has dropped to 6.8 G, and her platelet count is down at 27,000. Her chemistry panel reveals that BUN is elevated to 26 and her glucose is elevated at 194. Her liver function tests from when she came in reveal that her total bilirubin is elevated at 1.7 and AST is elevated at 68. Her B12 is normal at 975, folate is normal at 13.8, and TSH is normal at 3.43. Her ammonia is also normal at 21. 8. The patient's history, neurological examination, laboratory data, and imaging studies are most compatible with an encephalopathy most probably related to her significant anemia and possibly her infectious process. The encephalopathy had stabilized but was not improving further. 9. The sudden onset of right brain dysfunction that started this morning is still unexplained. The MRI of the brain done a few hours after the event was benign for acute pathology. 10. She was given a single dose of Ativan 2 mg IV for questionable ictal reasons for her event but no change was seen with the Ativan. Recommendations 1. Continue present management. 2. Correct hemoglobin to > 10 G. 3. EEG. 4. It may be worth doing a LP, when her platelet count allows it, to exclude a SENIOR SYSTEMS ADMINISTRATOR infectious process as a reason for her continued encephalopathy. 5. Agree with transferring the patient to a Neurologic ICU setting. 6. Observe closely. Erick Ulrich M.D., M.S.P.H. Erick Ulrich MD May 05, 2018 12:55
[2018-05-05] MEDS ORDERED: Lactulose 20gm/30ml UDC ORAL SCH (13:00)
--- NOTE | 2018-05-05 13:27 | NUR ---
FAMILY HAS REQUEST PATIENT TRANSFER TO [facility] [phone] PH / [phone] FAX
--- NOTE | 2018-05-05 13:58 | NUR ---
NURSE NOTES: video game repair technician has arrived and is setting up for EEG. Patient has witnessed seizure like tremor at this time with leg tremor, eyes open, patient gazing only to the right, and nonresponsive. Tremor lasted 2 min.
--- NOTE | 2018-05-05 14:16 | NUR ---
NURSE NOTES: Blood transfusion started at this time. Patient BP 148/83, temp 97.7, and HR 104 at this time.
--- NOTE | 2018-05-05 14:30 | NUR ---
NURSE NOTES: Patient has been receiving blood transfusion for 15 min now and her VS are stable with Temp 98.2, BP 160/89 (during tremor/seizure like activity), and HR 110.
--- NOTE | 2018-05-05 14:41 | General Progress Note ---
Assessment/Plan Status: not improved, unchanged Assessment/Plan # Severe thrombocytopenia - is most likely related to HIV poorly controlled, but will need to r/o malignancy as well as well as infection. 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, ferritin is elevated, tibc low --> w/u has been reviewed, some hemolysis mild is noted --> LDH elevated 1322-->1708-->3404-->3600 --> trend 7.5--> 6.8-->7.4-->6.8 -->8 --> Hgb goal >7, transfuse prn --> treat underlying hiv and OIs --> IS ON PREDNISONE 20mg po bid --> pending a LP once thrombocytopenia better # Leukocytosis - potentially related to steroids --> monitor and trend wbc for improvement --> ID service following --> on abx as needed # HIV (human immunodeficiency virus infection) poorly controlled --> continue hiv meds --> appreciate id recs --> CD4 count of 90 --> restarted on hiv meds # Bilateral nephrolithiasis --> appreciate renal recs # Dizziness and hematuria r/o kidney stones. --> ivf has been given # Hypomagnesemia -- replete with mag Greatly appreciate consultation! Subjective Date patient seen: May 05, 2018 Allergies: Coded Allergies: No Known Allergies (Unverified , 04/18/13) All Systems: reviewed and negative except above Subjective Biopsy perfromed 04/26. S/P blood tx, CBC reviewed 04/30: awaiting biopsy results, pending 05/01: results still pending, less ams, less encephalopathic, no seizures 05/02: reviewed, ldh remains high, seen by ID 05/03: discussed case with path, awaiting hematopathology eval, igG set ordered 05/04: bone marrow biopsy results final pending though hgb 6.9, transfused with 1 unit prbc 05/05: Pt decompensated this morning. MRI brain for stroke like symptoms. Planning transfer to higher level of care. Objective Last 24 Hour Vital Signs Date Time Temp Pulse Resp B/P (MAP) Pulse Ox O2 Delivery O2 Flow Rate FiO2 05/05/18 12:00 97.5 94 22 150/94 (112) 96 05/05/18 12:00 84 05/05/18 09:00 Room Air 05/05/18 08:00 97.2 79 18 148/82 (104) 99 05/05/18 04:00 97.6 81 18 126/81 (96) 100 05/05/18 00:00 97.5 78 18 129/84 (99) 100 05/04/18 21:00 Room Air 05/04/18 21:00 Room Air 05/04/18 20:29 98.0 84 18 137/75 (95) 100 05/04/18 16:30 98.4 90 20 148/92 (110) 98 Intake and Output 05/04/18 05/05/18 19:00 07:00 Intake Total 505 ml Output Total 450 ml Balance 55 ml Intake Oral 505 ml Output Urine Total 450 ml # Voids 1 2 # Bowel Movements 2 1 Laboratory Tests 05/05/18 05:27: White Blood Count 13.5H, Corrected White Blood Count 10.0, Red Blood Count 2.43L , Hemoglobin 7.5L, Hematocrit 23.1L, Mean Corpuscular Volume 95, Mean Corpuscular Hemoglobin 30.9, Mean Corpuscular Hemoglobin Concent 32.6, Red Cell Distribution Width 41.1H, Platelet Count 24L, Mean Platelet Volume 13.9H, Neutrophils (%) (Auto) , Lymphocytes (%) (Auto) , Monocytes (%) (Auto) , Eosinophils (%) (Auto) , Basophils (%) (Auto) , Differential Total Cells Counted 100, Neutrophils % (Manual) 71, Lymphocytes % (Manual) 22, Monocytes % ( Manual) 7, Eosinophils % (Manual) 0, Basophils % (Manual) 0, Band Neutrophils 0 , Nucleated Red Blood Cells 30, Platelet Estimate DecreasedL, Platelet Morphology Normal, Polychromasia 3+, Anisocytosis 4+, Microcytosis 1+, Macrocytosis 2+, Schistocytes 2+, Sodium Level 140, Potassium Level 3.5, Chloride Level 104, Carbon Dioxide Level 22, Anion Gap 14, Blood Urea Nitrogen 28H, Creatinine 1.0, Estimat Glomerular Filtration Rate > 60, Glucose Level 188H , Calcium Level 8.3L, Cryptococcus Antigen [Pending] Height (Feet): 5 Height (Inches): 2.00 Weight (Pounds): 231 Objective General Appearance: alert EENT: TMs normal Neck: normal inspection Cardiovascular: regular rhythm Respiratory/Chest: no respiratory distress Abdomen: no organomegaly Extremities: non-tender Edema: mild edema Skin: warm/dry Antony Julian MD May 05, 2018 14:41
[2018-05-05] MEDS ORDERED: Ampicillin 1 GM in NS 55 ML IVPB SCH (15:00)
--- NOTE | 2018-05-05 15:20 | NUR ---
NURSE NOTES: Patient had another episode of seizure like activity at this time. Patient showed leg tremor, glance to the right, and eyes open. Patient being monitored for the EEG at this time. Granite Installer says that the activity does not appear to be seizure activity. Official reading of the EEG is needed to confirm. Will continue to monitor patient.
[2018-05-05 16:00] VITALS: BP 144/82
--- NOTE | 2018-05-05 16:00 | NUR ---
NURSE NOTES: Patient temperature now 101.3. Will notify Dr Julian and stop the blood transfusion at this time.
--- NOTE | 2018-05-05 16:05 | NUR ---
NURSE NOTES: Dr Julian says to continue transfusion at this time and send blood bag back to lab when complete. Dr ordered tylenol rectal 650mg to be given at this time. Will give and monitor closely. Patient showing no other sign of transfusion reaction other than fever.
[2018-05-05] MEDS: cefTRIAXone 1 GM in D5W 50 ML IVPB SCH ×2 (16:10→17:04)
[2018-05-05] MEDS: Acetaminophen 650 MG SUPP RECTAL PRN ×2 (16:38→23:57)
[2018-05-05] MEDS ORDERED: Tubing Blood Filter IV ONE (17:35)
--- NOTE | 2018-05-05 17:35 | NUR ---
NURSE NOTES: Patient vomited at this time. Emesis was green, thin, with small amount of bloody mucous. Patient bed brought up to high fowlers position immediately and oral suction performed. Patient's jaw is clenched at this time. Patient may need nasal suction. Will continue to monitor at this time and keep patient HOB in high richter position.
--- NOTE | 2018-05-05 17:52 | NUR ---
NURSE NOTES: Spoke with Dr Lee regarding Prednisone PO. Doctor changed medication to IV since patient can not take medication by mouth at this time. Also, Dr Kerr notified regarding Dr Ulrich's interpretation of the brain MRI. Dr Ulrich noted a small infarct.
--- NOTE | 2018-05-05 17:57 | Infectious Diseases Prog Note ---
Assessment/Plan Assessment/Plan ASSESSMENT AND PLAN: 1. possible sepsis, now with fevers, aspiration pna risk, leukocytosis, ams, possible cva, possible enterococcus/streptococcus uti, ? OI, thrombocytopenia/anemia, elevated LDH - start zosyn, vancomycin and Diflucan - recheck cultures and chest x-ray - f/u on cultures and serology - check chest x-ray - neurology f/u - consider LP if thrombocytopenia improves and safe to do - d/w family - sister and daughter who conveyed to me they know about HIV status and will try to find out anti-retroviral therapy patient was on and let RN know 2. anemia, thrombocytopenia, elevated LDH, ? malignancy, ? other - bone marrow path reviewed - hem/onc f/u - consider restart anti-retroviral therapy once known what she was on 3. hiv and aids - cd4 is 90, viral load 177, 940 - start pcp and mac prophylaxis with daily bactrim and weekly azithromycin - unknown anti-retroviral treatment - d/w with daughter and sister, who know about her HIV status and will find out what her anti-retroviral therapy was and let RN know - consider starting anti-retroviral therapy qamar vs 2 week delay since patient with severe thrombocytopenia 4. Hypertension and hypothyroidism - tx per primary 5. Anemia. 6. Thrombocytopenia. 7. Elevated white count 8. Recent steroids. 9. Altered mental status and confusion. Neurology followup. 10. hematology work up in process 11. No known drug allergies. 12. Social history is negative. 13. Family history is noncontributory. 14. Case was discussed with RN. 15. MAR was noted. 16. Case was discussed with Dr. Kerr and Dr. Ulrich 17. Continue treatment per primary consultants. Subjective Constitutional: Reports: other - patient much more lethargic, transferred to [facility] ; Denies: fever HEENT: Denies: congestion Respiratory: Denies: shortness of breath Cardiovascular: Reports: other - no pressors Gastrointestinal/Abdominal: Denies: nausea, vomiting, diarrhea Genitourinary: Reports: other Neurologic: Reports: weakness, other - more lethargic Psychiatric: Reports: other - na Skin: Denies: rash Hematologic: Reports: other - pinkish urine per RN, no valencia Musculoskeletal: Reports: other - na Allergies: Coded Allergies: No Known Allergies (Unverified , 04/18/13) Objective Vital Signs Last 24 Hour Vital Signs Date Time Temp Pulse Resp B/P (MAP) Pulse Ox O2 Delivery O2 Flow Rate FiO2 05/05/18 17:08 101.1 05/05/18 16:00 108 05/05/18 16:00 101.2 107 26 144/82 (102) 100 05/05/18 12:00 97.5 94 22 150/94 (112) 96 05/05/18 12:00 84 05/05/18 09:00 Room Air 05/05/18 08:00 97.2 79 18 148/82 (104) 99 05/05/18 04:00 97.6 81 18 126/81 (96) 100 05/05/18 00:00 97.5 78 18 129/84 (99) 100 05/04/18 21:00 Room Air 05/04/18 21:00 Room Air 05/04/18 20:29 98.0 84 18 137/75 (95) 100 Height (Feet): 5 Height (Inches): 2.00 Weight (Pounds): 231 General Appearance: other - lethargic and weak HEENT: normocephalic, atraumatic, anicteric, supple, no JVD Respiratory/Chest: lungs clear, normal breath sounds, no respiratory distress, no accessory muscle use Cardiovascular: normal rate, regular rhythm, no gallop/murmur, no JVD Abdomen: normal bowel sounds, soft, non tender, no organomegaly, non distended Genitourinary: other - no valencia Extremities: no cyanosis Skin: no rash, no ulcers Neurologic/Psychiatric: other - much more lethargic and weak Lymphatic: no neck adenopathy Musculoskeletal: no effusion Objective CT scan abdomen and pelvis: IMPRESSION: 1. Distended appendix measuring about 1 cm. No surrounding inflammatory changes. 2. Bilateral nephrolithiasis. 3. Avascular necrosis of the hips. MRI Brain x 2 - reports reviewed Microbiology Date/Time Source Procedure Growth Status 05/02/18 17:40 Blood Blood Culture - Preliminary NO GROWTH AFTER 48 HOURS Resulted 04/30/18 18:30 Urine,Clean Catch Urine Culture - Final Enterococcus Avium Strep Agalactiae Group B Complete Microbiology Date/Time Source Procedure Growth Status 05/02/18 17:40 Blood Blood Culture - Preliminary NO GROWTH AFTER 48 HOURS Resulted Laboratory Tests Test 05/05/18 05:27 White Blood Count 13.5 K/UL (4.8-10.8) H Corrected White Blood Count 10.0 K/UL Red Blood Count 2.43 M/UL (4.20-5.40) L Hemoglobin 7.5 G/DL (12.0-16.0) L Hematocrit 23.1 % (37.0-47.0) L Mean Corpuscular Volume 95 FL (80-99) Mean Corpuscular Hemoglobin 30.9 PG (27.0-31.0) Mean Corpuscular Hemoglobin Concent 32.6 G/DL (32.0-36.0) Red Cell Distribution Width 41.1 % (11.6-14.8) H Platelet Count 24 K/UL (150-450) L Mean Platelet Volume 13.9 FL (6.5-10.1) H Neutrophils (%) (Auto) % (45.0-75.0) Lymphocytes (%) (Auto) % (20.0-45.0) Monocytes (%) (Auto) % (1.0-10.0) Eosinophils (%) (Auto) % (0.0-3.0) Basophils (%) (Auto) % (0.0-2.0) Differential Total Cells Counted 100 Neutrophils % (Manual) 71 % (45-75) Lymphocytes % (Manual) 22 % (20-45) Monocytes % (Manual) 7 % (1-10) Eosinophils % (Manual) 0 % (0-3) Basophils % (Manual) 0 % (0-2) Band Neutrophils 0 % (0-8) Nucleated Red Blood Cells 30 /100 WBC Platelet Estimate Decreased L Platelet Morphology Normal Polychromasia 3+ Anisocytosis 4+ Microcytosis 1+ Macrocytosis 2+ Schistocytes 2+ Sodium Level 140 MMOL/L (136-145) Potassium Level 3.5 MMOL/L (3.5-5.1) Chloride Level 104 MMOL/L (98-107) Carbon Dioxide Level 22 MMOL/L (21-32) Anion Gap 14 mmol/L (5-15) Blood Urea Nitrogen 28 mg/dL (7-18) H Creatinine 1.0 MG/DL (0.55-1.30) Estimat Glomerular Filtration Rate > 60 mL/min (>60) Glucose Level 188 MG/DL (74-106) H Calcium Level 8.3 MG/DL (8.5-10.1) L Cryptococcus Antigen Pending Current Medications Medications (Trade) Dose Ordered Sig/Ellen Route PRN Reason Start Time Stop Time Status Last Admin Dose Admin Acetaminophen (Tylenol) 650 mg Q6H PRN RECTAL fever >100.5 05/05/18 16:15 06/04/18 16:14 05/05/18 16:38 Ampicillin 1 gm/ Sodium Chloride 55 ml @ 110 mls/hr EVERY 6 HOURS IVPB 05/05/18 15:00 05/12/18 14:59 05/05/18 16:08 Azithromycin (Zithromax) 1,200 mg ONCE A WEEK ORAL 05/10/18 18:00 05/17/18 17:59 Diphenhydramine HCl (Benadryl) 25 mg Q6H PRN ORAL Itching 05/05/18 12:00 05/22/18 11:59 Docusate Sodium (Colace) 100 mg TWICE A DAY ORAL 05/05/18 18:00 05/29/18 17:59 Famotidine (Pepcid) 20 mg BID ORAL 05/05/18 18:00 05/23/18 08:59 Hydralazine HCl (Apresoline) 10 mg Q6H PRN IV SBP >180 05/05/18 13:30 06/04/18 13:29 Irbesartan (Avapro) 75 mg DAILY ORAL 05/06/18 09:00 05/23/18 08:59 Lactulose (Cephulac) 30 gm THREE TIMES A DAY RECTAL 05/05/18 18:00 05/29/18 17:59 Levothyroxine Sodium (Synthroid) 112 mcg ACBREAKFAST ORAL 05/06/18 06:30 05/23/18 06:29 Ondansetron HCl (Zofran) 4 mg Q6H PRN IVP Nausea & Vomiting 05/05/18 12:00 05/30/18 11:59 Prednisone (predniSONE) 20 mg BID ORAL 05/05/18 18:00 05/23/18 08:59 Trimethoprim/ Sulfamethoxazole (Bactrim-DS) 1 tab Q24H ORAL 05/05/18 18:00 05/10/18 17:59 Lm Britt MD May 05, 2018 17:57
[2018-05-05] MEDS ORDERED: Lactulose 20gm/30ml UDC RECTAL SCH (18:00)
[2018-05-05] MEDS ORDERED: Docusate 100mg cap ORAL SCH (18:00)
[2018-05-05] MEDS ORDERED: Bactrim-DS 1 tab ORAL SCH (18:00)
--- NOTE | 2018-05-05 18:15 | NUR ---
NURSE NOTES: Transfusion completed at this time. Patient's BP is now 180/97, temp 101.1, and HR 100 at this time. Will continue to monitor. Will send blood and tubing to blood bank and collect urine sample for culture and analysis at this time per doctor order.
[2018-05-05] MEDS ORDERED: cefTRIAXone 1 GM in D5W 50 ML IVPB ONE (18:30)
--- NOTE | 2018-05-05 18:30 | NUR ---
NURSE NOTES: Spoke with family member regarding HIV medications. Family member unable to find the medications that the patient is taking. They stated that the patient's pharmacy could provide the information but they will not give the information to the family member. The hospital has to fax a release of information request to the pharmacy and the pharmacy can then release the list of medications that the patient is taking at home. Will endorse to oncoming nurse to follow up with day nurse tomorrow. The [facility] the [facility].
--- NOTE | 2018-05-05 19:53 | NUR ---
HAND-OFF: Report given to OTF Vu. Patient blood pressure elevated at this time. Endorsed to follow up. Patient resting in bed with no sign of acute distress at this time. Addendum: 05/05/18 at 2038 by Manasa Ortiz RN Patient's pharmacy needs to be contacted in the morning regarding the patient's HIV medication. Endorsed to follow up.
[2018-05-05 20:00] VITALS: BP 163/97
--- NOTE | 2018-05-05 20:01 | NUR ---
NURSE NOTES: Received patient from OTF Goel. Patient is asleep with eyes opening spontaneously. on 2L nasal cannula and showing no signs and symptoms of distress and/or pain. Family is at bedside, will monitor for hypertension, fever and continue plan of care.
[2018-05-05] MEDS ORDERED: Vancomycin 1500mg IVPB ONE (20:30)
[2018-05-06] VITALS: BP 130/76
[2018-05-06 04:00] VITALS: BP 150/80
[2018-05-06 06:02] LABS: HEMATOCRIT 25.9 % (37.0-47.0); HEMOGLOBIN 8.4 G/DL (12.0-16.0); MEAN CORPUSCULAR VOLUME 97 FL (80-99); PLATELET COUNT 22 K/UL (150-450); RED BLOOD COUNT 2.67 M/UL (4.20-5.40); RED CELL DISTRIBUTION WIDTH 37.1 % (11.6-14.8); WHITE BLOOD COUNT 20.2 K/UL (4.8-10.8)
[2018-05-06 06:32] LABS: ANION GAP 13 mmol/L (5-15); BLOOD UREA NITROGEN 45 mg/dL (7-18); CALCIUM 7.7 MG/DL (8.5-10.1); CARBON DIOXIDE 24 MMOL/L (21-32); CHLORIDE 103 MMOL/L (98-107); POTASSIUM 4.6 MMOL/L (3.5-5.1); SODIUM 140 MMOL/L (136-145)
[2018-05-06 06:39] LABS: APPEARANCE,URINE SLIGHTLY CLOUDY; BILIRUBIN, URINE NEGATIVE (NEGATIVE); COLOR,URINE PALE YELLOW; GLUCOSE, URINE (UA) 4+ (NEGATIVE); KETONES,URINE NEGATIVE (NEGATIVE); LEUKOCYTE ESTERASE ,URINE 1+ (NEGATIVE); NITRITE,URINE NEGATIVE (NEGATIVE); PH,URINE 5 (4.5-8.0); PROTEIN,URINE 3+ (NEGATIVE); UROBILINOGEN,URINE NORMAL MG/DL (0.0-1.0)
--- NOTE | 2018-05-06 07:00 | NUR ---
NURSE NOTES: Received report from OTF Vu. Patient is asleep in bed. No s/s of acute distress noted. 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 On 2L O2 via nasal cannula. Purewick urinary catheter in place and draining well. Left AC 20g IV intact and patent, running NS at 100 cc/hr. Right hand 22g intact and patent. Bed locked in lowest position with padded side rails up x3. Call light left within reach. Will continue to monitor.
--- NOTE | 2018-05-06 07:07 | NUR ---
NURSE NOTES: Left message for Dr. Almeida regarding patient's morning lab results especially critical glucose blood level of 593. Awaiting call back.
--- NOTE | 2018-05-06 07:13 | NUR ---
HAND-OFF: Report given to CALEB GUSTAFSON RN.
--- NOTE | 2018-05-06 07:13 | NUR ---
CORRECTION: REPORT GIVEN TO OTF CALDERON. patient is stable and family member at bedside.
[2018-05-06 08:00] VITALS: BP 124/77
--- NOTE | 2018-05-06 08:38 | Diagnostic Imaging Report ---
EXAM: XR Chest, 1 View CLINICAL HISTORY: INFECT TECHNIQUE: Frontal view of the chest. COMPARISON: No relevant prior studies available. FINDINGS: Lungs: No consolidation. Pleural space: Unremarkable. No pneumothorax. Heart: Cardiomegaly. Mediastinum: Unremarkable. Bones/joints: No acute fracture. IMPRESSION: No consolidation.
[2018-05-06] MEDS ORDERED: Vancomycin 1gm in D5W 275ml IVPB SCH (09:00)
[2018-05-06] MEDS ORDERED: Solu-MEDROL 40mg Inj IVP SCH ×2 (09:00)
[2018-05-06] MEDS ORDERED: Pantoprazole Inj IVP SCH (09:00)
[2018-05-06] MEDS ORDERED: Insulin Human Regular 100units/ml 3ml SUBQ ONE (09:00)
--- NOTE | 2018-05-06 09:00 | NUR ---
NURSE NOTES: Dr. Usha MD was made aware of patient's high blood glucose of 593 around 0800. Orders were received and carried out. Patient was non-responsive. BP 139/60, HR 111, RR 22, and saturated 100% on 15L O2 via non-rebreather mask. Code blue initiated around 0900. Addendum: 05/06/18 at 1318 by GWENDOLYN ROBISON RN Patient was noted with bloody stool and bloody sputum. ST elevation noted during code. MOSHE Madrigal present and aware. Addendum: 05/06/18 at 1320 by GWENDOLYN ROBISON RN Dr. Long MD also made aware of WBC 20.2.
[2018-05-06] MEDS ORDERED: Tubing IV Secondary IV ONE (09:44)
[2018-05-06] MEDS ORDERED: Calcium Chloride 10% 10ml carpuject IVP ONE (09:44)
[2018-05-06] MEDS ORDERED: Sodium Bicarbonate 8.4% 50ml Inj ONE ×2 (09:44)
[2018-05-06] MEDS ORDERED: NS 275ml ONE (09:44)
[2018-05-06] MEDS ORDERED: Atropine Inj 1mg/10ml Syr ONE (09:44)
[2018-05-06 09:45] VITALS: BP 115/85
--- NOTE | 2018-05-06 10:47 | Emergency Room Report ---
Physical Exam Code Blue called. Patient became asystolic. 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 Presumed to be septic with H/O HIV. Last 24 Hour Vital Signs Date Time Temp Pulse Resp B/P (MAP) Pulse Ox O2 Delivery O2 Flow Rate FiO2 05/06/18 09:45 115/85 05/06/18 08:00 100.0 104 20 124/77 (93) 98 05/06/18 04:00 107 05/06/18 04:00 Nasal Cannula 2.0 05/06/18 04:00 98.9 96 24 150/80 (103) 99 05/06/18 01:01 99.0 05/06/18 00:00 Nasal Cannula 2.0 05/06/18 00:00 101.1 111 30 130/76 (94) 100 05/05/18 23:29 84 05/05/18 21:00 Nasal Cannula 2.0 05/05/18 20:00 Nasal Cannula 2.0 05/05/18 20:00 98.6 103 20 163/97 (119) 100 05/05/18 19:39 109 05/05/18 16:00 108 05/05/18 16:00 101.2 107 26 144/82 (102) 100 05/05/18 16:00 Nasal Cannula 2.0 05/05/18 12:00 97.5 94 22 150/94 (112) 96 05/05/18 12:00 Nasal Cannula 2.0 05/05/18 12:00 84 Sp02 EP Interpretation: reviewed, abnormal General Appearance: obese, other - unresponsive and CPR in progress Head: normocephalic Eyes: bilateral eye abnormal EOM ENT: moist mucus membranes Neck: supple Respiratory: lungs clear, normal breath sounds Cardiovascular #1: other - asystolic, edema Cardiovascular #2: 2+ femoral (R) - CPR only Gastrointestinal: soft, non-distended, overweight Musculoskeletal: other - flaccid Neurologic: other - unresponsive Psychiatric: other - unresponsive Skin: cyanosis CPR/Code Blue CPR/Code Blue Narrative Code called 9:05 - CPR was supervised directly by me. See Code Blue record. Intubated. Epi X 4, Bicarb X 2, Calcium, NS wide open (rhythm 78 no pulses). ABG by me. 7.35. Bicarb 37. ROSC @ 9:21 request Levophed. Transfer to ICU with plan for CVP. Discussed with son. Re-arrest in ICU with asystole. 9:35 Repeat Epi X 3, still with asystole. Discussed with family. Patient demonstrates cardiopulmonary unresponsiveness. Pronounced at 9:45 Intubation Intubation : Consent: Emergent Intubation Method: orotracheal Tube Size (cm): 7.5 Medications: Other - none Breath Sounds after Intubation: equal Intubation Complications: no complications Post Intubation Xray: No Attempts: One Patient Tolerated: Well Complications: None Medical Decision Making Diagnostic Impression: Primary Impression: Cardiopulmonary arrest Additional Impression: Severe sepsis ER Course Patient with sepsis and compensated metabolic acidosis in cardiac arrest. See Code Blue sheet and notes. Final rhythm asystole. Patient pronounced at 9:45. Status: worsened Disposition: Condition: Referrals: NON PHYSICIAN (PCP) Romain Alves MD May 06, 2018 10:47
--- NOTE | 2018-05-06 13:23 | General Progress Note ---
Assessment/Plan Assessment/Plan # Severe thrombocytopenia - is most likely related to HIV poorly controlled, but will need to r/o malignancy as well as well as infection. 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, ferritin is elevated, tibc low --> w/u has been reviewed, some hemolysis mild is noted --> LDH elevated 1322-->1708-->3404-->3600 --> trend 7.5--> 6.8-->7.4-->6.8 -->8 --> Hgb goal >7, transfuse prn --> treat underlying hiv and OIs --> IS ON PREDNISONE 20mg po bid --> pending a LP once thrombocytopenia better # Leukocytosis - potentially related to steroids --> monitor and trend wbc for improvement wbc 13.5-->20.2 --> ID service following --> on abx as needed # HIV (human immunodeficiency virus infection) poorly controlled --> continue hiv meds --> appreciate id recs --> CD4 count of 90 --> restarted on hiv meds # Bilateral nephrolithiasis --> appreciate renal recs # Dizziness and hematuria r/o kidney stones. --> ivf has been given # Hypomagnesemia -- replete with mag # CVA, small contributing to ams on 05/05 Greatly appreciate consultation! Subjective Constitutional: Denies: no symptoms, chills, diaphoresis, fever, malaise, weakness, other Cardiovascular: Denies: no symptoms, chest pain, edema, irregular heart rate, lightheadedness, palpitations, syncope, other Respiratory: Denies: no symptoms, cough, orthopnea, shortness of breath, SOB with excertion, SOB at rest, sputum, stridor, wheezing, other Gastrointestinal/Abdominal: Denies: no symptoms, abdomen distended, abdominal pain, black stools, tarry stools, blood in stool, constipated, diarrhea, difficulty swallowing, nausea, poor appetite, poor fluid intake, rectal bleeding , vomiting, other Genitourinary: Denies: no symptoms, burning, discharge, frequency, flank pain, hematuria, incontinence, pain, urgency, other Neurologic/Psychiatric: Denies: no symptoms, anxiety, depressed, emotional problems, headache, numbness, paresthesia, pre-existing deficit, seizure, tingling, tremors, weakness, other Endocrine: Denies: no symptoms, excessive sweating, flushing, intolerance to cold, intolerance to heat, increased hunger, increased thirst, increased urine, unexplained weight gain, unexplained weight loss, other Hematologic/Lymphatic: Reports: no symptoms Allergies: Coded Allergies: No Known Allergies (Unverified , 04/18/13) Subjective Biopsy perfromed 04/26. S/P blood tx, CBC reviewed 04/30: awaiting biopsy results, pending 05/01: results still pending, less ams, less encephalopathic, no seizures 05/02: reviewed, ldh remains high, seen by ID 05/03: discussed case with path, awaiting hematopathology eval, igG set ordered 05/04: bone marrow biopsy results final pending though hgb 6.9, transfused with 1 unit prbc 05/05: Pt decompensated this morning. MRI brain for stroke like symptoms. Planning transfer to higher level of care. : had a small infarct, as per Dr. Ulrich, no events, no f/c Objective Last 24 Hour Vital Signs Date Time Temp Pulse Resp B/P (MAP) Pulse Ox O2 Delivery O2 Flow Rate FiO2 05/06/18 09:45 115/85 05/06/18 08:00 Nasal Cannula 2.0 05/06/18 08:00 100.0 104 20 124/77 (93) 98 05/06/18 07:46 101 05/06/18 04:00 107 05/06/18 04:00 Nasal Cannula 2.0 05/06/18 04:00 98.9 96 24 150/80 (103) 99 05/06/18 01:01 99.0 05/06/18 00:00 Nasal Cannula 2.0 05/06/18 00:00 101.1 111 30 130/76 (94) 100 05/05/18 23:29 84 05/05/18 21:00 Nasal Cannula 2.0 05/05/18 20:00 Nasal Cannula 2.0 05/05/18 20:00 98.6 103 20 163/97 (119) 100 05/05/18 19:39 109 05/05/18 16:00 108 05/05/18 16:00 101.2 107 26 144/82 (102) 100 05/05/18 16:00 Nasal Cannula 2.0 Intake and Output 05/05/18 05/06/18 19:00 07:00 Intake Total 455 ml 1081.98 ml Output Total 400 ml Balance 455 ml 681.98 ml IV Total 205 ml 1081.98 ml Blood Product 250 ml Output Urine Total 350 ml Emesis 50 ml # Voids 2 # Bowel Movements 2 Laboratory Tests 05/06/18 02:05: Urine Color Pale yellow, Urine Appearance Slightly cloudy, Urine pH 5, Urine Specific [place] 1.015, Urine Protein 3+H, Urine Glucose (UA) 4+H, Urine Ketones Negative, Urine Blood 5+H, Urine Nitrite Negative, Urine Bilirubin Negative, Urine Urobilinogen Normal, Urine Leukocyte Esterase 1+H, Urine RBC 20- 30H, Urine WBC 2-4, Urine Squamous Epithelial Cells Few, Urine Bacteria Few, Urine Random Total Protein 142H, Urine Total Protein [Pending], Urine Albumin (% ) [Pending], Urine Tzdkz-0-Ktgapbcxn (%) [Pending], Urine Mtnpl-0-Akuwcikio (%) [Pending], Urine Beta-Globulin (%) [Pending], Urine Gamma Globulin (%) [Pending] , Ur Protein Electrophoresis M-José [Pending], Urine Protein Electrophoresis Intrp [Pending], Urine Immunofixation [Pending] 05/06/18 03:45: White Blood Count 20.2H, Red Blood Count 2.67L, Hemoglobin 8.4L, Hematocrit 25.9L, Mean Corpuscular Volume 97, Mean Corpuscular Hemoglobin 31.4H, Mean Corpuscular Hemoglobin Concent 32.2, Red Cell Distribution Width 37.1H, Platelet Count 22L, Mean Platelet Volume 5.9L, Neutrophils (%) (Auto) , Lymphocytes (%) (Auto) , Monocytes (%) (Auto) , Eosinophils (%) (Auto) , Basophils (%) (Auto) , Differential Total Cells Counted 100, Neutrophils % ( Manual) 78H, Lymphocytes % (Manual) 7L, Monocytes % (Manual) 12H, Eosinophils % (Manual) 0, Basophils % (Manual) 0, Band Neutrophils 3, Nucleated Red Blood Cells 42, Platelet Estimate DecreasedL, Platelet Morphology Normal, Polychromasia 2+, Hypochromasia 1+, Anisocytosis 3+, Schistocytes 2+, Sodium Level 140, Potassium Level 4.6, Chloride Level 103, Carbon Dioxide Level 24, Anion Gap 13, Blood Urea Nitrogen 45H, Creatinine 2.0#H, Estimat Glomerular Filtration Rate 31.0, Glucose Level 593#*H, Calcium Level 7.7L 05/06/18 08:53: Arterial Blood pH [Pending], Arterial Blood Partial Pressure CO2 [Pending], Arterial Blood Partial Pressure O2 [Pending], Arterial Blood HCO3 [Pending], Arterial Blood Oxygen Saturation [Pending], Arterial Blood Base Excess [Pending] , Brock Test [Pending] Height (Feet): 5 Height (Inches): 2.00 Weight (Pounds): 231 General Appearance: lethargic EENT: TMs normal Neck: supple Cardiovascular: regular rhythm Respiratory/Chest: no respiratory distress Abdomen: hyperactive bowel sounds Objective General Appearance: alert EENT: TMs normal Neck: normal inspection Cardiovascular: regular rhythm Respiratory/Chest: no respiratory distress Abdomen: no organomegaly Extremities: non-tender Edema: mild edema Skin: warm/dry Antony Julian MD May 06, 2018 13:23
--- NOTE | 2018-05-06 16:15 | Electroencephalogram ---
REQUESTING PHYSICIAN: Romain Kerr M.D. READING PHYSICIAN: Erick Ulrich M.D. DATE OF TRACIN05/05/2018 HISTORY: This EEG was performed on a 57-year-old lady with HIV disease and hypertension, who was hospitalized for change in mental state and then on the day of the EEG had a sudden onset of left-sided weakness and poor responsiveness. The purpose of this EEG was to evaluate the patient for ongoing ictal or interictal phenomena. TECHNIQUE NOTE: This EEG was performed on a [employer] with electrodes placed on the scalp according to the International 10-20 system. [id number] and [id number] montages were used. The EEG was technically satisfactory and was performed while the patient was in a poorly responsive state. OBSERVATIONS: In the poorly responsive state, the background activity consisted of 6-7 Hz theta activity over the left hemisphere and 4-5 Hz theta with intermixed delta frequencies of a significantly lower amplitude over the right hemisphere. No definite epileptiform discharges were seen. During part of the EEG, the patient did have some abnormal jerking movements but these were not associated with any EEG correlate. IMPRESSION: This is an abnormal EEG characterized by: 1. Slowing of the background in the 6-7 Hz theta range over the left hemisphere. 2. Slowing of the background in the 4-5 Hz theta and intermixed delta range over the right hemisphere with significant decrease in amplitude of activity over the right hemisphere. COMMENT: This study is consistent with: 1. An encephalopathy of a moderate degree. 2. Right hemispheric dysfunction of significance. Erick Ulrich M.D., M.S.P.H. DR: HARDIK JOB#: [id number]
--- NOTE | 2018-05-09 11:37 | Discharge Summary ---
Discharge Summary Discharge Summary _ SUMMARY DATE OF ADMISSION: 04/22/2018 DATE OF EXPIRATION: 05/06/2018 REASON FOR ADMISSION: 57 years old female with past medical history of HIV , hypertension, hypothyroidism, presented to emergency room with complaint of dizziness and hematuria. Patient also reported headache and generalized abdominal pain ,but no diarrhea or hematochezia. Upon evaluation in emergency room vital signs were stable. Laboratory workup revealed marked thrombocytopenia with platelet count of 11. Patient also noted to be anemic : hemoglobin 8.9 ,hematocrit 27.1. CT of the head revealed no evidence of acute intracranial pathology. CT of the abdomen and pelvis showed bilateral nephrolithiasis. Distended appendix measuring about 1 cm. No surrounding inflammatory . Avascular necrosis of the hips. changes. Patient admitted with diagnoses of acute severe thrombocytopenia, anemia, and HIV disease CONSULTANTS: neurologist Dr. Ulrich ID specialist Dr. Britt stone carriage operator/oncologist Dr. Julian [place] [employer] COURSE: Patient admitted and started on IV fluids and empiric antibiotics. Pain management was addressed. Patient subsequently undergone ultrasound of the abdomen due to abdominal distention , which revealed bilateral nonobstructive nephrolithiasis but was negative for gallstones or dilated ducts.. Nail Setter/ oncologist followed. Patient demonstrated severe thrombocytopenia , most likely related to HIV poorly controlled/, however possibility of malignancy and infection should be considered. Platelet count was closely monitored with goal to keep platelets count above 10. Patient undergone transfusion of plateletpheresis. Patient subsequently undergone bone marrow biopsy which showed monoclonal process 4%, suggestive of B-cell lymphoma/leukemia , with main differential diagnoses based on immunophenotype including but not limited to marginal zone leukemia/lymphoma, lymphoplasmacytic lymphoma, CD10 negative follicular lymphoma and large B-cell lymphoma. Haptoglobin was low , concerning for opportunistic infection , sepsis , acute process. Anemia workup was done and reviewed by stone carriage operator , mild hemolysis noted. Anemia likely due to hemolytic anemia with elevated ferritin and low TIBC. Elevated LDH with trend up . Hemoglobin and hematocrit were closely monitored with goal to keep hemoglobin above 7. Patient was transfused with total of 5 units of packed red blood cells. Stool for occult blood was positive. GI prophayxlis provided with PPI. Lumbar puncture was recommended once platelet count improves. Haptoglobin was low with concerning for opportunistic infection, sepsis, acute process. ID specialist closely follow. Patient was on antibiotic. Blood culture on 2 separate occasions 05/02 and 05/05 were negative. Urine culture revealed Enterococcus and Streptococci growth. T-cell subset demonstrated CD4 count of 90 and HIV viral load [id number]. According to family (sister and daughter ), they knew about HIV status, but were not able to find out what antiretroviral therapy patient was on. Patient started on PCP and MAC prophylaxis with daily Bactrim and weekly azithromycin . ID recommended to consider starting antiretroviral therapy as soon as possible versus 2-week delay since patient had severe thrombocytopenia. Patient had fever and worsening leukocytosis. RPR nonreactive, Crypto serology negative and Cocci serology still pending, Per ID specialist patient possibly had sepsis and high risk for aspiration pneumonia, probably UTI and possibly opportunistic infections. On 04/30 patient noted to have change in level of consciousness. Neurology consult was requested, who closely followed. Repeated CT scan of the brain without contrast on 04/30 was benign. MRI of the brain done on 05/04 revealed suspected tiny acute lacunar infarct in the right globe. Repeated MRI of the brain on 05/05 revealed no acute pathology. Patient had a sudden onset of right brain dysfunction , started on the morning of 05/05. She became weak and flaccid on the left side this morning. A STAT MRI of the brain was ordered and revealed no acute intracranial pathology. Patient continued to be weak and flaccid on the left and had her eyes and head deviated to the right . Patient was given single dose of Ativan 2 mg IV for questionable ictal reason for her event, but no change was seen with the Ativan. According to class c driver, patient history, neurological examination, laboratory data , and imaging studies were most compatible with encephalopathy most probably related to significant anemia and possibly infectious process. Neurologist recommended EEG. EEG revealed encephalopathy of a moderate degree, and right hemispheric dysfunction of significance. Neurologist also recommended lumbar puncture when platelet count allowed, to exclude BOILER SETTER infectious process as a reason for continued encephalopathy. Plan was to transfer patient to neurological ICU setting for further management. Blood pressure initially was stable and was manage with Avapro. TSH within normal limits, current dose of Synthroid was continued. Renal parameters and electrolytes were closely monitored, and electrolytes corrected as needed. CODE BLUE was called on 05/06/18 at 9:05 after patient became asystolic. ACLS algorithm implemented. Patient required oral intubation . Patient also started on Levophed for hemodynamic support /severe hypotension and subsequently transferred to ICU . Patient was rearrested in ICU at 9:36. Despite all resuscitative attempts, patient demonstrated cardiopulmonary unresponsiveness . Patient was pronounced at 9:45 on 05/06/18. 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 Possible opportunistic infection Monoclonal process 4%, possible B cell lymphoma/leukemia Aspiration pneumonia risk Possible enterococcus/Streptococcus UTI Bilateral nephrolithiasis Hypertension Hypothyroidism I have been assigned to dictate discharge summary for this account. I was not involved in the patient's management. India Frederick NP May 09, 2018 11:37
[2018-05-10] MEDS ORDERED: Azithromycin 600mg Tab ORAL SCH ×2 (18:00)
== END 2018-05-06 09:45 | disposition expired | DRG 974 ==
LOC: EMR 12:19 → EDBEDREQ 15:25 → 3E 15:55 → 2E 04-30 15:05 → 3E 05-04 09:35 → 2W 05-05 11:09
PROC: 6A550Z2 Pheresis of Platelets, Single (ICD-10-PCS; principal; 2018-04-22)
PROC: 30233N1 Transfusion of Nonautologous Red Blood Cells into Peripheral Vein, Percutaneous Approach (ICD-10-PCS; principal; 2018-04-22)
PROC: 07DR3ZX Extraction of Iliac Bone Marrow, Percutaneous Approach, Diagnostic (ICD-10-PCS; 2018-04-26)
PROC: 0BH17EZ Insertion of Endotracheal Airway into Trachea, Via Natural or Artificial Opening (ICD-10-PCS; 2018-05-06)
DX: B20 Human immunodeficiency virus [HIV] disease (principal); R65.21 Severe sepsis with septic shock; A41.9 Sepsis, unspecified organism; J96.01 Acute respiratory failure with hypoxia; I63.81 Other cerebral infarction due to occlusion or stenosis of small artery; G93.40 Encephalopathy, unspecified; N39.0 Urinary tract infection, site not specified; C85.10 Unspecified B-cell lymphoma, unspecified site; D59.9 Acquired hemolytic anemia, unspecified; G81.04 Flaccid hemiplegia affecting left nondominant side; D69.6 Thrombocytopenia, unspecified; R31.9 Hematuria, unspecified; R42 Dizziness and giddiness; I10 Essential (primary) hypertension; E83.42 Hypomagnesemia; N20.0 Calculus of kidney; E03.9 Hypothyroidism, unspecified; B95.2 Enterococcus as the cause of diseases classified elsewhere
CPT/HCPCS: 36415; 36600; 70450; 70551; 70553; 71045; 74177; 76700; 77012; 80048; 80053; 81001; 81003; 82044; 82140; 82247; 82248; 82270; 82306; 82607; 82728; 82746; 82784; 82787; 82962; 83010; 83020; 83036; 83540; 83550; 83605; 83615; 83690; 84165; 84443; 84484; 85007; 85025; 85044; 85060; 85379; 85384; 85610; 85651; 85660; 85730; 86039; 86160; 86334; 86360; 86431; 86592; 86635; 86689; 86703; 86705; 86709; 86790; 86803; 86850; 86880; 86900; 86901; 86920; 87040; 87086; 87181; 87340; 87449; 87536; 92950; 95819; 96374; 99285; A9585; J0171; J2250